=== PATIENT | female | born 1990 | race Caucasian/White ===

== ENCOUNTER 2016-09-05 16:57 | Emergency (ER) | payer BC ==
--- NOTE | 2016-09-05 18:03 | EDM.PDOC ---
ED HPI RENAL/ - General Chief Complaint: Genitourinary Problem Stated Complaint: UTI Time Seen by Provider: 09/05/16 17:40 Source of Information: Reports: Patient History Limitations: Reports: No limitations - History of Present Illness INITIAL COMMENTS - FREE TEXT/NARRATIVE: Patient is 25-year-old female who is 12 weeks presenting to the ED complaining of burning sensation and increased frequency with urination. Patient states symptoms started this morning and have progressively gotten worse throughout the course of the day. She does have a history of UTIs in the past and states symptoms are similar to previous episodes. Denies any abnormal vaginal discharge or bleeding, n/v, or fever/chills. 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 Other Cardiovascular History: pt has fluctuation of heart rate and rhythms from SR_ST_SVT. 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 Psychiatric History: Reports: Anxiety Other Psychiatric History: insomnia Social & Family History - Tobacco Use Smoking Status *Q: Never Smoker Second Hand Smoke Exposure: No - Caffeine Use Caffeine Use: Reports: None - Alcohol Use Days Per Week of Alcohol Use: 0 - Recreational Drug Use Recreational Drug Use: No ED ROS GENERAL - Review of Systems Review Of Systems: See Below Constitutional: Reports: no symptoms Respiratory: Reports: No Symptoms Cardiovascular: Reports: No symptoms GI/Abdominal: Reports: Abdominal pain (Intermittent suprapubic abdominal pain) : Reports: dysuria, frequency, urgency. Denies: discharge, flank pain Musculoskeletal: Denies: back pain ED EXAM, RENAL/ - Physical Exam Exam: See Below Exam Limited By: No limitations General Appearance: alert, WD/WN, no apparent distress Ears: hearing grossly normal Nose: normal inspection Throat/Mouth: Normal voice, No airway compromise Neck: supple Respiratory/Chest: no respiratory distress, no accessory muscle use Cardiovascular: normal peripheral pulses, regular rate, rhythm GI/Abdominal: normal bowel sounds, soft, non tender, no organomegaly, no distention Back Exam: normal inspection. No: CVA tenderness (L), CVA tenderness (R) Neurological: alert, oriented, CN II-XII intact, normal cognition Psychiatric: normal affect, normal mood Skin Exam: Warm, Dry, Intact, Normal color Course - Vital Signs Last Recorded V/S: Last Vital Signs Temp 97.4 F 09/05/16 17:05 Pulse 80 09/05/16 18:17 Resp 16 09/05/16 18:17 BP 94/75 09/05/16 18:17 Pulse Ox 100 09/05/16 18:17 - Orders/Labs/Meds Orders: Active Orders 24 hr Category Date Time Status CULTURE URINE [RM] Stat Lab 09/05/16 14:15 Received Labs: Laboratory Tests 09/05/16 Range/Units 17:05 Urine Color Yellow (Yellow) Urine Appearance Slt cloudy H (Clear) Urine pH 6.0 (5.0-8.0) Ur Specific [place] 1.025 (1.005-1.030) Urine Protein Negative (Negative) Urine Glucose (UA) Negative (Negative) Urine Ketones Negative (Negative) Urine Occult Blood Negative (Negative) Urine Nitrite Negative (Negative) Urine Bilirubin Negative (Negative) Urine Urobilinogen 0.2 (0.2-1.0) Ur Leukocyte Esterase Trace H (Negative) Urine RBC 0-5 (0-5) /hpf Urine WBC 5-10 H (0-5) /hpf Ur Epithelial Cells Not Reportable Ur Squamous Epith Cells 20-30 H (0-5) /hpf Urine Bacteria Few (FEW) /hpf Urine Mucus Few (FEW) /hpf Meds: Medications Discontinued Medications Generic Name Dose Route Start Last Admin Trade Name Rocio PRN Reason Stop Dose Admin Cephalexin 500 mg 09/05/16 18:04 09/05/16 18:14 Keflex PO 09/05/16 18:05 500 mg ONETIME ONE Administration - Re-Assessments/Exams Free Text/Narrative Re-Assessment/Exam: UA was obtained revealing negative nitrates, trace leukocyte Estrace, urine RBC 0-5, urine wbc's 5-10, squamous epithelial cells 20-30. Urine culture obtained. Due to patients history of UTI's, current symptoms, and history will discharge patient home with a prescription for Keflex 500 mg 4 times a day for 7 days. Keflex 500mg PO x 1 ordered. Will obtain heart tones prior to discharge. 09/05/16 17:59 09/05/16 18:07 heart tones 155. Departure - Departure Time of Disposition: 18:02 Disposition: Home, Self-Care 01 Condition: good Clinical Impression: UTI (urinary tract infection) during Prescriptions: Cephalexin [Keflex] 500 mg PO QID #28 capsule Instructions: and Urinary Tract Infection Referrals: Licha Foster NATUROPATHIC ONCOLOGY PROVIDER [Primary Care Provider] - Forms: ED Department Discharge Additional Instructions: As discussed will have you take Keflex 500 mg 4 times a day for 7 days. Urine culture has been obtained. If any changes to antibiotic therapy is required U. will be notified. Followup with primary care provider at conclusion of therapy to ensure resolution. Return back to the ED if you develope any new or worsening symptoms as discussed. - My Orders Last 24 Hours: My Active Orders 09/05/16 14:15 CULTURE URINE [RM] Stat - Assessment/Plan Last 24 Hours: My Active Orders 09/05/16 14:15 CULTURE URINE [RM] Stat
[2016-09-05] MEDS ORDERED: Cephalexin 500 MG Cap PO ONE (18:04)
[2016-09-05 18:19] VITALS: BP 94/75
== END 2016-09-05 18:21 | disposition home or self-care (01) ==
LOC: JD.ED 16:57
DX: O23.41 Unspecified infection of urinary tract in pregnancy, first trimester (principal); Z3A.12 12 weeks gestation of pregnancy
CPT/HCPCS: 81001; 87086; 99283; A9270

== ENCOUNTER 2016-12-30 13:46 | Observation (INO) | payer BC ==
[2016-12-30] MEDS ORDERED: Sodium Chloride 0.9% 10 ML Syringe FLUSH PRN (13:51)
[2016-12-30] MEDS ORDERED: Betamethasone Acetate/Betamethasone Sod Phosphate 30 MG/5 ML MDV IM ONE (13:51)
[2016-12-30] MEDS: Lactated Ringers 1,000 ML IV SCH ×4 (14:15→21:12)
[2016-12-30] MEDS ORDERED: Terbutaline 1 MG/ML SDV ONE (14:19)
[2016-12-30] MEDS: Terbutaline 1 MG/ML SDV SUBCUT SCH ×6 (14:26→19:01)
--- NOTE | 2016-12-30 16:47 | PCM.LDHP ---
L&D History of Present Illness - General Date of Service: 12/30/16 Admit Problem/Dx: Patient Status Order with Admit Dx/Problem 12/30/16 13:51 Patient Status [ADT] Routine 12/30/16 16:34 Patient Status [ADT] Routine Admission Diagnosis/Problem Admission Diagnosis/Problem complication before - History of Present Illness Introduction:: Patient is a 26-year-old, 1, para 0, white female with an NUNU of 2016, who was admitted for observation with complaints of contractions. Pelvic cramping began at 0700 this morning. She was seen by Licha Foster in the clinic where contractions were noted. FFN was negative. Cervical length by TV US was 2.2 cm and 1.3 cm with valsalva. Cervical length was 3.6 cm on las trans -abdominal USG on 12/08/2016. Course: Patient's LMP was06/07/2016, definite and not on control at time of conception. She was using clomid prior to . EPDS was 9 on 2016. Patient does have a history of anxiety. Laboratory Testing: Blood type is A positive and antibody negative. First trimester hemoglobin was 14.0 and platelets were 270,000. Rubella immune. VDRL/RPR was nonreactive. HIV and hepatitis B assays were negative. Chlamydia and gonorrhea were negative. Second trimester hemoglobin was 12.7 and platelets were 238,000. GBS collected and is pending will Rx Ampicillin pending report Timing/Duration: Reports: hour(s): Location, : Reports: Abdomen, Lower back Quality: Reports: Ache, Dull Severity: Mild Pain Score: 4 - Related Data Allergies/Adverse Reactions: Allergies Allergy/AdvReac Type Severity Reaction Status Date / Time No Known Allergies Allergy Verified 09/05/16 17:13 Home Medications: Home Meds Cephalexin [Keflex] 500 mg PO QID #28 capsule 09/05/16 [Rx] Doxylamine/Pyridoxine HCl [Diclegis Dr 10-10 mg Tablet] 2 tab PO BEDTIME [History] PNV95/Ferrous Fumarate/FA [ Vitamin Tablet] 1 tab PO DAILY 09/05/16 [ History] Past Medical History HEENT History: Reports: Impaired Vision Other HEENT History: wears contacts. Other Cardiovascular History: pt has fluctuation of heart rate and rhythms from SR_ST_SVT. 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 Psychiatric History: Reports: Anxiety Other Psychiatric History: insomnia Social & Family History - Family History Cardiac: Reports: CAD (father, paternal grandfather, and maternal grandmother), High Cholesterol (father) - Tobacco Use Smoking Status *Q: Never Smoker Second Hand Smoke Exposure: No - Caffeine Use Caffeine Use: Reports: None - Alcohol Use Days Per Week of Alcohol Use: 0 - Recreational Drug Use Recreational Drug Use: No H&P Review of Systems - Review of Systems: Review Of Systems: See Below General: Reports: No Symptoms HEENT: Reports: No Symptoms Pulmonary: Reports: No Symptoms Cardiovascular: Reports: No Symptoms Gastrointestinal: Reports: No Symptoms Genitourinary: Reports: No Symptoms Musculoskeletal: Reports: No Symptoms Skin: Reports: No Symptoms Psychiatric: Reports: No Symptoms Neurological: Reports: No Symptoms Hematologic/Lymphatic: Reports: No Symptoms Immunologic: Reports: No Symptoms L&D Exam - Exam Exam: See Below - Vital Signs Vital Signs: Pre- weight was 134 and current weight was 149.8 Weight: 135 lb - OB Specific Fundal Height In cm: 28 Contraction Frequency (min): 5-6 min Movement: Active Heart Tones: Present (147) Heart Tones per Min: 147 Heart Rate (FHR) Variability: Moderate (6-25 bmp) (adequate for gestational age) - Burns Score Burns Score Cervix Position: Posterior Burns Score Consistency: Firm Burns Score Effacement: 51-70% Burns Score Dilation: Closed (exam at 1530 and 1630 were unchanged) Burns Score 's Station: -3 Burns Score Total: 2 - Exam General: Alert, Oriented Neck: Supple, Trachea Midline Lungs: Clear to Auscultation, Normal Respiratory Effort Cardiovascular: Regular Rate, Regular Rhythm GI/Abdominal Exam: Other (Protuberant with preganancy at 28 cm fundal height) Extremities: Normal Inspection, No Pedal Edema Skin: Warm, Dry, Intact Psychiatric: Alert, Anxious - Patient Data Lab Results Last 24 hrs: Laboratory Results - last 24 hr 12/30/16 12/30/16 Range/Units 14:10 14:10 WBC 12.84 H (3.98-10.04) K/mm3 RBC 4.19 (3.98-5.22) M/mm3 Hgb 13.2 (11.2-15.7) gm/L Hct 39.0 (34.1-44.9) % MCV 93.1 (79.4-94.8) fl MCH 31.5 (25.6-32.2) pg MCHC 33.8 (32.2-35.5) g/dl RDW Std Deviation 42.5 (36.4-46.3) fL Plt Count 232 (182-369) K/mm3 MPV 9.7 (9.4-12.3) fl Neut % (Auto) 75.8 H (34.0-71.1) % Lymph % (Auto) 18.0 L (19.3-51.7) % [place] % (Auto) 5.6 (4.7-12.5) % Eos % (Auto) 0.2 L (0.7-5.8) Baso % (Auto) 0.2 (0.1-1.2) % Neut # (Auto) 9.74 H (1.56-6.13) K/mm3 Lymph # (Auto) 2.31 (1.18-3.74) K/mm3 [place] # (Auto) 0.72 H (0.24-0.36) K/mm3 Eos # (Auto) 0.02 L (0.04-0.36) K/mm3 Baso # (Auto) 0.02 (0.01-0.08) K/mm3 Blood Type A POSITIVE Gel Antibody Screen Negative Result Diagrams: 12/30/16 14:10 - Problem List (1) 28 weeks gestation of SNOMED Code(s): 79846610 ICD Code: Z3A.28 - 28 WEEKS GESTATION OF Status: Acute Current Visit: Yes (2) contractions SNOMED Code(s): 888138998 ICD Code: O47.9 - FALSE LABOR, UNSPECIFIED Status: Acute Current Visit: Yes Problem List Initiated/Reviewed/Updated: No Orders Last 24hrs: Active Orders 24 hr Category Date Time Status Patient Status [ADT] Routine ADT 12/30/16 16:34 Ordered Non Stress Test [RC] PER UNIT ROUTINE Care 12/30/16 13:51 Active Peripheral IV Care [RC] . DIRECTED Care 12/30/16 13:55 Active Vital Signs [RC] PER UNIT ROUTINE Care 12/30/16 13:51 Active Clear Liquid Diet [DIET] Diet 12/30/16 Breakfast Cancelled Regular Diet [DIET] Diet 12/30/16 Dinner Ordered Doxylamine/Pyridoxine HCl [Diclegis Dr 10-10 mg Tablet] Med 12/30/16 21:00 Ordered 2 tab PO BEDTIME Lactated Ringers [Ringers, Lactated] 1,000 ml Med 12/30/16 14:00 Active IV ASDIRECTED NIFEdipine [Procardia] Med 12/30/16 16:45 Ordered 10 mg PO Q6H Sodium Chloride 0.9% [Saline Flush] Med 12/30/16 13:51 Active 10 ml FLUSH ASDIRECTED PRN Terbutaline [Brethine] Med 12/30/16 14:30 Active 0.25 mg SUBCUT Q20M Peripheral IV Insertion Adult [OM.PC] Urgent Oth 12/30/16 13:51 Ordered Resuscitation Status Routine Resus Stat 12/30/16 13:51 Ordered Medication Orders Lactated Ringer's (Ringers, Lactated) 1,000 mls @ 125 mls/hr IV ASDIRECTED LEONARDA Last Admin: 12/30/16 14:15 Dose: 500 mls/hr Nifedipine (Procardia) 10 mg PO Q6H LEONARDA Non-Formulary Medication (Doxylamine/Pyridoxine Hcl [Diclegis Dr 10-10 Mg Tablet ]) 2 tab PO BEDTIME LEONARDA Sodium Chloride (Saline Flush) 10 ml FLUSH ASDIRECTED PRN PRN Reason: Keep Vein Open Terbutaline Sulfate (Brethine) 0.25 mg SUBCUT Q20M LEONAR[facility] Last Admin: 12/30/16 14:26 Dose: 0.25 mg Assessment/Plan Comment:: Assessment: 1. contractions 28+ weeks gestation Plan: 1. Observation status 2. IV hydration 3. repeat sonogram in am 4. terbutaline/procardia 5. 12 mg celestone and repeat in 24 hours 6. visteril 50 mg hs 7. continuous monitoring throughout night 8. Ampicillin pending GBS report
[2016-12-30] MEDS ORDERED: Ampicillin 2 GM Vial ONE (17:26)
[2016-12-30] MEDS ORDERED: Sodium Chloride 0.9% 100 ML ONE (17:27)
[2016-12-30] MEDS ORDERED: Ampicillin 2 GM in Sodium Chloride 0.9% 100 ML IV SCH (17:30)
[2016-12-30] MEDS: NIFEdipine 10 MG Cap PO SCH ×2 (17:41→22:52)
[2016-12-30] MEDS: Ampicillin 1 GM in Sodium Chloride 0.9% 100 ML IV SCH (19:01)
[2016-12-30] MEDS ORDERED: hydrOXYzine HCl 50 MG Tab PO SCH (21:00)
[2016-12-30] MEDS ORDERED: DOXYLAMINE PO SCH (21:00)
[2016-12-30] MEDS ORDERED: PYRIDOXINE HCL PO SCH (21:00)
[2016-12-30] MEDS ORDERED: Ampicillin 1 GM in Sodium Chloride 0.9% 100 ML IV SCH (21:30)
[2016-12-30] MEDS: Ampicillin 1 GM in Sodium Chloride 0.9% 50 ML IV SCH (21:31)
[2016-12-30] MEDS ORDERED: Terbutaline 1 MG/ML SDV SUBCUT PRN (22:48)
[2016-12-30] MEDS ORDERED: Acetaminophen 325 MG Tab PO ONE (22:48)
[2016-12-31] MEDS: Ampicillin 1 GM in Sodium Chloride 0.9% 50 ML IV SCH ×3 (01:31→11:12)
[2016-12-31] MEDS ORDERED: Terbutaline 1 MG/ML SDV SUBCUT ONE (03:01)
[2016-12-31] MEDS ORDERED: NIFEdipine 10 MG Cap ONE (03:17)
--- NOTE | 2016-12-31 03:25 | PCM.SN ---
- Free Text/Narrative Note: Patient continues with uterine irritability terbutaline 0.252 additional doses given and Procardia increase to 20 mg by mouth every 4 hours for 4 doses total and then revert back to 10 mg every 4H by mouth cervix is unchanged on pelvic exam at present time, posterior firm 50% closed and floating presenting part. Repeat ultrasound for cervical length has been ordered for this morning.
[2016-12-31] MEDS: NIFEdipine 10 MG Cap PO SCH ×6 (03:31→17:22)
[2016-12-31] MEDS: Lactated Ringers 1,000 ML IV SCH (04:45)
--- NOTE | 2016-12-31 09:51 | PCM.SN ---
- Free Text/Narrative Note: USG this AM improved cervical length from yesterday's USG, cephalic, ant placenta, JUNG 11.12, EFW 2#8 oz, contractions have subsided and irritability resolved as well. GBS negative discontinue the Ampicillin IV for now. Decrease Procardia to 10 mg q6h or q4h if irritability returns. Celestone 12 mg at 1430. Possibly home this PM. Do not work until at least Wednesday01/05/17.
--- NOTE | 2016-12-31 11:03 | US ---
Follow-up obstetrical ultrasound: Multiple real-time images were obtained transabdominally and transvaginally. Transvaginal images were obtained of the cervix. Comparison: Previous obstetrical ultrasound of the cervix dated 12/30/16. Dates: LMP: ? Current ultrasound: NUNU 03/26/17, gestational age 27 weeks 6 days Earliest ultrasound (08/07/16): NUNU 03/19/17, gestational age 28 weeks 6 days presentation: Cephalic Placenta: Anterior with no findings of placenta previa Amniotic fluid: JUNG 11.12 cm Cervix: On transvaginal imaging the cervix measures between 2.4 and 3.0 cm and appears closed. No change seen on measurement between Valsalva and non-Valsalva views as suggested on prior ultrasound. Measurements: BPD: 6.90 cm - 27 weeks 6 days Head circumference: 25.66 cm - 28 weeks 0 days Abdominal circumference: 23.57 cm - 28 weeks 0 days Femur length: 5.15 cm - 27 weeks 4 days Estimated weight: 1122 g (2 lbs. 8 oz.), estimated weight at the 33rd percentile for age by current ultrasound Heart rate: 142 bpm Growth curves: Various growth parameters are between the mean and -2 standard deviation lines. Growth is felt to be appropriate from prior exams. Impression: 1. Single intrauterine fetus currently cephalic in presentation. Dates as noted above. 2. Cervical length between 2.4 and 3.0 cm, cervix is closed. Cervix did not change measurements between non-Valsalva and Valsalva. 3. growth is appropriate from prior exam. JUNG is 11.12 cm Diagnostic code #2
[2016-12-31] MEDS ORDERED: Betamethasone Acetate/Betamethasone Sod Phosphate 30 MG/5 ML MDV IM ONE (14:29)
[2016-12-31 17:22] VITALS: BP 119/68
--- NOTE | 2016-12-31 17:27 | PCM.DCSUM1 ---
Discharge Summary - Hospital Course Free Text/Narrative:: Treated for labor with hydration, SQ Terbutaline, Procardia and contractions have subsided. No cervical change in 24 hours by exam , and improvement of cervical length with USG. RTC Wednesday or to L&D if problems before then. HPI Initial Comments: Treated for labor with hydration, SQ Terbutaline, Procardia and contractions have subsided. No cervical change in 24 hours by exam , and improvement of cervical length with USG. RTC Wednesday or to L&D if problems before then. Brief History: Treated for labor with hydration, SQ Terbutaline, Procardia and contractions have subsided. No cervical change in 24 hours by exam , and improvement of cervical length with USG. RTC Wednesday or to L&D if problems before then. - Discharge Data Discharge Date: 12/31/16 Discharge Disposition: Home, Self-Care 01 Condition: Good - Discharge Diagnosis/Problem(s) (1) 28 weeks gestation of SNOMED Code(s): 54734287 ICD Code: Z3A.28 - 28 WEEKS GESTATION OF Status: Acute Current Visit: Yes (2) contractions SNOMED Code(s): 434317046 ICD Code: O47.9 - FALSE LABOR, UNSPECIFIED Status: Acute Current Visit: Yes - Patient Summary/Data Complications: none Consults: none Hospital Course: Uneventful Pelvic rest until delivery Stop work until after delivery note given - Patient Instructions Diet: Regular Diet as Tolerated Driving: Do Not Drive (x48 hrs) Showering/Bathing: May Shower Notify Provider of: Fever, Increased Pain, Swelling and Redness, Drainage, Nausea and/or Vomiting - Discharge Plan Prescriptions/Med Rec: Doxylamine/Pyridoxine HCl [Sarah Mueller 10-10 mg Tablet] 1 - 2 each PO BID #90 tablet. NIFEdipine [Procardia] 10 mg PO Q4H #180 cap Home Medications: Home Meds Cephalexin [Keflex] 500 mg PO QID #28 capsule 09/05/16 [Rx] Doxylamine/Pyridoxine HCl [Sarah Mueller 10-10 mg Tablet] 2 tab PO BEDTIME [History] PNV95/Ferrous Fumarate/FA [ Vitamin Tablet] 1 tab PO DAILY 09/05/16 [ History] Doxylamine/Pyridoxine HCl [Sarah Mueller 10-10 mg Tablet] 1 - 2 each PO BID #90 tablet. 12/31/16 [Rx] NIFEdipine [Procardia] 10 mg PO Q4H #180 cap 12/31/16 [Rx] Referrals: Bethel Sanchez MD [Physician] - (Wednesday 1130am at [facility]. ) - Discharge Summary/Plan Comment DC Time >30 min.: No - Patient Data Vitals - Most Recent: Last Vital Signs Temp 98.2 F 12/30/16 20:55 Pulse 94 12/30/16 20:55 Resp 20 12/30/16 20:55 BP 119/68 12/31/16 17:22 Pulse Ox 95 12/30/16 20:55 Weight - Most Recent: 150 lb I&O - Last 24 hours: Intake & Output 12/31/16 12/31/16 12/31/16 06:59 14:59 22:59 Intake Total 120 Balance 120 Med Orders - Current: Current Medications Hydroxyzine HCl (Atarax) 50 mg PO BEDTIME [facility] Last Admin: 12/30/16 20:14 Dose: 50 mg Lactated Ringer's (Ringers, Lactated) 1,000 mls @ 125 mls/hr IV ASDIRECTED [facility] Last Admin: 12/31/16 04:45 Dose: 125 mls/hr Nifedipine (Procardia) 10 mg PO Q4H [facility] Last Admin: 12/31/16 17:22 Dose: 10 mg Doxylamine/Pyridoxine Hcl [ Sarah Mueller 10-10 Mg Tablet] 0 each PO BEDTIME [facility] Last Admin: 12/31/16 11:13 Dose: Not Given Sodium Chloride (Saline Flush) 10 ml FLUSH ASDIRECTED PRN PRN Reason: Keep Vein Open Terbutaline Sulfate (Brethine) 0.25 mg SUBCUT ONETIME PRN PRN Reason: labor Last Admin: 12/31/16 02:16 Dose: 0.25 mg Discontinued Medications Acetaminophen (Tylenol) 650 mg PO NOW ONE Stop: 12/30/16 22:49 Last Admin: 12/30/16 23:35 Dose: 650 mg Ampicillin Sodium (Ampicillin) Confirm Administered Dose 2 gm .ROUTE .STK-MED ONE Stop: 12/30/16 17:27 Last Admin: 12/30/16 19:02 Dose: Not Given Betamethasone Acet/Betameth SodPhos (Celestone Soluspan 6 Mg/Ml) 12 mg IM ONETIME ONE Stop: 12/30/16 13:52 Last Admin: 12/30/16 14:28 Dose: 12 mg Betamethasone Acet/Betameth SodPhos (Celestone Soluspan 6 Mg/Ml) 12 mg IM ONETIME ONE Stop: 12/31/16 14:30 Last Admin: 12/31/16 14:47 Dose: 12 mg Ampicillin Sodium 1 gm/ Sodium (Chloride) 100 mls @ 200 mls/hr IV Q15M [facility] Stop: 12/30/16 17:29 Last Admin: 12/30/16 19:01 Dose: Not Given Ampicillin Sodium 1 gm/ Sodium (Chloride) 100 mls @ 200 mls/hr IV Q4H [facility] Ampicillin Sodium 2 gm/ Sodium (Chloride) 100 mls @ 200 mls/hr IV NOW [facility] Last Admin: 12/30/16 17:41 Dose: 200 mls/hr Ampicillin Sodium 1 gm/ Sodium (Chloride) 50 mls @ 100 mls/hr IV Q4H [facility] Last Admin: 12/31/16 11:12 Dose: Not Given Sodium Chloride (Normal Saline) Confirm Administered Dose 100 mls @ as directed .ROUTE .STK-MED ONE Stop: 12/30/16 17:28 Last Admin: 12/30/16 19:02 Dose: Not Given Nifedipine (Procardia) 10 mg PO Q6H [facility] Last Admin: 12/30/16 22:52 Dose: 10 mg Nifedipine (Procardia) Confirm Administered Dose 10 mg .ROUTE .STK-MED ONE Stop: 12/31/16 03:18 Last Admin: 12/31/16 03:25 Dose: Not Given Nifedipine (Procardia) 20 mg PO Q4H [facility] Stop: 12/31/16 15:16 Last Admin: 12/31/16 07:52 Dose: 20 mg Nifedipine (Procardia) 10 mg PO Q4H [facility] Terbutaline Sulfate (Brethine) Confirm Administered Dose 1 mg .ROUTE .STK-MED ONE Stop: 12/30/16 14:20 Last Admin: 12/30/16 14:33 Dose: Not Given Terbutaline Sulfate (Brethine) 0.25 mg SUBCUT Q20M [facility] Last Admin: 12/30/16 19:01 Dose: Not Given Terbutaline Sulfate (Brethine) 0.25 mg SUBCUT ONETIME ONE Stop: 12/31/16 03:02 Last Admin: 12/31/16 03:08 Dose: 0.25 mg *Q Meaningful Use (DIS) - VTE *Q VTE Criteria *Q: - Stroke *Q Stroke Criteria *Q: - AMI *Q AMI Criteria *Q:
[2016-12-31] MEDS ORDERED: NIFEdipine 10 MG Cap PO SCH (19:15)
== END 2016-12-31 17:35 | disposition home or self-care (01) ==
LOC: JD.OBCHECK 13:46 → JD.OB 13:47 → JD.OBCHECK 17:04 → JD.MS 12-31 08:33
PROVIDERS: ADMIT Obstetrics & Gynecology; ATTEND Obstetrics & Gynecology
DX: O60.03 Preterm labor without delivery, third trimester (principal); Z3A.28 28 weeks gestation of pregnancy; Z87.440 Personal history of urinary (tract) infections; Z79.899 Other long term (current) drug therapy; O26.892 Other specified pregnancy related conditions, second trimester; R10.2 Pelvic and perineal pain
CPT/HCPCS: 36415; 59025; 76816; 76817; 81003; 82731; 85025; 86850; 86900; 86901; 87653; 96361; 96365; 96366; 96372; 96376; A9270; G0378; J0290; J0702; J3105; J7030; J7050; J7120

== ENCOUNTER 2017-01-01 15:10 | Observation (INO) | payer BC ==
--- NOTE | 2017-01-01 17:44 | US ---
Limited obstetrical ultrasound: Multiple real-time images were obtained transvaginally. Findings: Slight funneling of the internal cervical loss is identified. Cervical length is around 2.7 cm which diminishes to about 1.0 cm with Valsalva. This funneling appears slightly more prominent than on previous exam. There is some fluid being seen within the endocervical canal. Impression: 1. Mild funneling of the internal cervical os slightly more prominent than on prior study. 2. Decreased cervical length with Valsalva to 1.0 cm. 3. Small amount of fluid within the endocervical canal. Diagnostic code #3
--- NOTE | 2017-01-01 19:28 | PCM.LDHP ---
L&D History of Present Illness - General Date of Service: 01/01/17 Admit Problem/Dx: Patient Status Order with Admit Dx/Problem 01/01/17 18:56 Patient Status [ADT] Routine Admission Diagnosis/Problem Admission Diagnosis/Problem complication before Source of Information: Patient History Limitations: Reports: No Limitations - History of Present Illness Introduction:: 26-year-old 000 NUNU 03/19/17 at 29 weeks 0 days estimated gestational age had been in the hospital observation status Wednesday12/30/16 and dismissed on 12/31/16 because of threatened labor was given subcutaneous terbutaline Procardia by mouth Vistaril and contractions subsided the ultrasound obtained on 12/30/16 revealed cervix closed cervical length measures 2.2 cm in decreases to 1.3 cm with Valsalva cephalic presentation follow-up ultrasound on 12/31/16 showed cervix 2.4-3.0 cm and appears close no change on measurement between Valsalva and non-Valsalva use as suggested on prior ultrasound ultrasound obtained today reveals cervix 2.7 cm diminishes to 1.0 cm with Valsalva and funneling appears slightly more prominent than on previous exam in fluid seen in the endocervical canal patient had felt she was having contractions at home we have not been able to identify contractions by palpation or nonstress test on labor and delivery unit today. On ultrasound 12/08 the cervix was 3.6 cm in length. The nonstress test is reassuring for gestational age. Cervical exam revealed on 12/30/16 posterior firm 50-60% closed - 3 station cervical exam on 12/31/16 was unchanged and cervical exam today is unchanged. group B strep screen was returned as negative. Patient was dismissed from the hospital 12/31/16 taking Procardia 110 mg tablet every 4-6 hours (she's been taking it about every 5 hours). The fibronectin was negative on . I did talk with Dr.Ana Paty DUKE at [facility] in [place] concerning this patient and she agrees with the treatments thus far. fibronectin has been collected results are pending at present time. The MFM agreed with placing patient on observation status here and no need to transported present time unless her condition should change. Improves with: Reports: None Worsens with: Reports: None Associated Symptoms: Reports: N - Related Data Allergies/Adverse Reactions: Allergies Allergy/AdvReac Type Severity Reaction Status Date / Time No Known Allergies Allergy Verified 09/05/16 17:13 Home Medications: Home Meds Cephalexin [Keflex] 500 mg PO QID #28 capsule 09/05/16 [Rx] Doxylamine/Pyridoxine HCl [Diclegis Dr 10-10 mg Tablet] 2 tab PO BEDTIME [History] PNV95/Ferrous Fumarate/FA [ Vitamin Tablet] 1 tab PO DAILY 09/05/16 [ History] Doxylamine/Pyridoxine HCl [Diclegis Dr 10-10 mg Tablet] 1 - 2 each PO BID #90 tablet. 12/31/16 [Rx] NIFEdipine [Procardia] 10 mg PO Q4H #180 cap 12/31/16 [Rx] Past Medical History HEENT History: Reports: Impaired Vision Other HEENT History: wears contacts. Cardiovascular History: Reports: Other (See Below) Other Cardiovascular History: pt has fluctuation of heart rate and rhythms from SR_ST_SVT. States had previous symptoms checked "nothing ever became of it.". Pt has had no reoccurances or complications. 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 Psychiatric History: Reports: Anxiety Other Psychiatric History: insomnia - Infectious Disease History Infectious Disease History: Reports: Other (See Below) Other Infectious Disease History: C-diff Cleared- had a long time ago Social & Family History - Family History Family Medical History: Noncontributory Cardiac: Reports: CAD, High Cholesterol - Tobacco Use Smoking Status *Q: Never Smoker Second Hand Smoke Exposure: No - Caffeine Use Caffeine Use: Reports: None - Alcohol Use Days Per Week of Alcohol Use: 0 - Recreational Drug Use Recreational Drug Use: No H&P Review of Systems - Review of Systems: Review Of Systems: See Below General: Reports: No Symptoms HEENT: Reports: No Symptoms Pulmonary: Reports: No Symptoms Cardiovascular: Reports: No Symptoms Gastrointestinal: Reports: No Symptoms Genitourinary: Reports: No Symptoms Musculoskeletal: Reports: No Symptoms Skin: Reports: No Symptoms Psychiatric: Reports: No Symptoms Neurological: Reports: No Symptoms Hematologic/Lymphatic: Reports: No Symptoms Immunologic: Reports: No Symptoms L&D Exam - Exam Exam: See Below - Vital Signs Weight: 150 lb - OB Specific Fundal Height In cm: 29 Movement: Active Heart Tones: Present Heart Tones per Min: 140 Heart Rate (FHR) Variability: Moderate (6-25 bmp) Presentation: Vertex - Burns Score Burns Score Cervix Position: Posterior Burns Score Consistency: Soft Burns Score Effacement: 51-70% Burns Score Dilation: Closed Burns Score 's Station: -3 Burns Score Total: 4 - Exam General: Alert, Oriented HEENT: Conjunctiva Clear, Mucosa Moist & [place], PERRLA Neck: Supple, Trachea Midline Lungs: Clear to Auscultation, Normal Respiratory Effort Cardiovascular: Regular Rate, Regular Rhythm GI/Abdominal Exam: Normal Bowel Sounds, Soft, Non-Tender, No Organomegaly, No Distention, No Abnormal Bruit, No Mass, Pelvis Stable Genitourinary: Normal external exam, Normal bimanual exam, Normal speculum exam Extremities: Normal Inspection, Normal Range of Motion, Non-Tender, No Pedal Edema, Normal Capillary Refill Skin: Warm, Dry, Intact Neurological: Cranial Nerves Intact, Reflexes Equal Bilateral Psychiatric: Alert, Normal Affect, Normal Mood - Patient Data Lab Results Last 24 hrs: Laboratory Results - last 24 hr 01/01/17 Range/Units 16:21 Urine Color Yellow (Yellow) Urine Appearance Cloudy H (Clear) Urine pH 7.0 (5.0-8.0) Ur Specific [place] 1.020 (1.005-1.030) Urine Protein Negative (Negative) Urine Glucose (UA) Negative (Negative) Urine Ketones Negative (Negative) Urine Occult Blood Negative (Negative) Urine Nitrite Negative (Negative) Urine Bilirubin Negative (Negative) Urine Urobilinogen 0.2 (0.2-1.0) Ur Leukocyte Esterase Negative (Negative) Urine RBC 0-5 (0-5) /hpf Urine WBC 0-5 (0-5) /hpf Ur Epithelial Cells 5-10 H (0-5) /hpf Amorphous Sediment Many H (NOT SEEN) /hpf Urine Bacteria Not seen (FEW) /hpf Urine Mucus Not seen (FEW) /hpf - Problem List (1) Threatened labor SNOMED Code(s): 630409004 ICD Code: O47.00 - FALSE LABOR BEFORE 37 COMPLETED WEEKS OF GEST, UNSP TRI Status: Acute Current Visit: No (2) 29 weeks gestation of SNOMED Code(s): 69354666 ICD Code: Z3A.29 - 29 WEEKS GESTATION OF Status: Acute Current Visit: No Problem List Initiated/Reviewed/Updated: No Orders Last 24hrs: Active Orders 24 hr Category Date Time Status Patient Status [ADT] Routine ADT 01/01/17 18:56 Active Antiembolic Devices [RC] PER UNIT ROUTINE Care 01/01/17 19:00 Active Bedrest Bathroom Privileges [RC] ASDIRECTED Care 01/01/17 19:01 Active Non Stress Test [RC] PER UNIT ROUTINE Care 01/01/17 16:15 Inactive Vital Signs [RC] PER UNIT ROUTINE Care 01/01/17 16:15 Active Vital Signs [RC] Q8H Care 01/01/17 18:59 Active Regular Diet [DIET] Diet 01/01/17 Dinner Active CULTURE URINE [RM] Routine Lab 01/01/17 16:21 Received FIBRONECTIN Stat Lab 01/01/17 18:20 Received Lactated Ringers [Ringers, Lactated] 500 ml Med 01/01/17 19:10 Ordered IV .BOLUS Morphine Med 01/01/17 21:00 Once 10 mg IM ONETIME ONE NIFEdipine [Procardia] Med 01/01/17 19:00 Ordered 10 mg PO Q6H hydrOXYzine HCl [Vistaril] Med 01/01/17 21:00 Once 50 mg IM ONETIME ONE EFM External w TOCO [Electronic Heart Tones Ext w Oth 01/01/17 18:59 Ordered TOCO] [WOMSER] CONTINUOUS SCD [Sequential Compression Device] [OM.PC] Routine Oth 01/01/17 19:00 Ordered Resuscitation Status Routine Resus Stat 01/01/17 16:15 Ordered Medication Orders Hydroxyzine HCl (Vistaril) 50 mg IM ONETIME ONE Stop: 01/01/17 21:01 Lactated Ringer's (Ringers, Lactated) 500 mls @ 500 mls/hr IV .BOLUS ONE Stop: 08/11/17 20:09 Morphine Sulfate (Morphine) 10 mg IM ONETIME ONE Stop: 01/01/17 21:01 Nifedipine (Procardia) 10 mg PO Q6H LEONARDA Stop: 01/03/17 13:01 Assessment/Plan Comment:: Observation status IV hydration and continue Procardia and IM morphine/Vistaril.
[2017-01-01] MEDS: NIFEdipine 10 MG Cap PO SCH (19:45)
[2017-01-01] MEDS: Lactated Ringers 500 ML IV ONE ×2 (20:25→23:30)
[2017-01-01] MEDS ORDERED: Morphine 10 MG/ML Syringe IM ONE (21:00)
[2017-01-01] MEDS ORDERED: hydrOXYzine HCl 25 MG/ML SDV IM ONE (22:06)
[2017-01-01] MEDS: hydrOXYzine HCl 25 MG/ML SDV IM ONE (22:38)
[2017-01-02] MEDS: NIFEdipine 10 MG Cap PO SCH ×2 (01:26→07:20)
[2017-01-02] MEDS ORDERED: Lactated Ringers 1,000 ML IV SCH (07:15)
--- NOTE | 2017-01-02 09:47 | US ---
Limited obstetrical ultrasound: Multiple real-time images were obtained transvaginally. Comparison: Previous exam performed one day earlier (01/01/17) Minimal funneling again noted within the internal cervical os. Shortest cervical length measured was 0.6 cm. This compares to previous study at 1.0 cm. Small amount of fluid is again seen within the endocervical canal. Impression: 1. Minimal funneling of the internal cervical os which is stable. 2. Shortest cervical length measured was 0.6 cm. 3. Small amount of fluid remains within the endocervical canal. Diagnostic code #5
[2017-01-02] MEDS ORDERED: Diphtheria,Pertussis(Acell),Tetanus Vaccine 0.5 ML SDV IM ONE (10:08)
[2017-01-02 10:17] VITALS: BP 110/70
[2017-01-02] MEDS: hydrOXYzine HCl 25 MG/ML SDV IM ONE (10:18)
--- NOTE | 2017-01-02 10:48 | PCM.DCSUM1 ---
Discharge Summary - Hospital Course Free Text/Narrative:: [facility] LIVE Admission H&P Patient Name: MARIAH JAMISON Date of : 89 Patient Status: Observation Attending Provider: Bethel Sanchez Date: 01/01/17 19:16 Initialization Date: 01/01/17 19:16 Addendum entered and electronically signed by Bethel Sanchez MD 01/01/17 19 :50: fibronectin from today returned as positive with patient has had several vaginal exams in the past 48 hours. I talked with [facility] and she agreed this could be from the exams and continue with present plan. Original Note: L&D History of Present Illness - General Date of Service: 01/01/17 Admit Problem/Dx: Patient Status Order with Admit Dx/Problem 01/01/17 18:56 Patient Status [ADT] Routine Admission Diagnosis/Problem Admission Diagnosis/Problem complication before Source of Information: Patient History Limitations: Reports: No Limitations - History of Present Illness Introduction:: 26-year-old 000 NUNU 03/19/17 at 29 weeks 0 days estimated gestational age had been in the hospital observation status Wednesday12/30/16 and dismissed on 12/31/16 because of threatened labor was given subcutaneous terbutaline Procardia by mouth Vistaril and contractions subsided the ultrasound obtained on 12/30/16 revealed cervix closed cervical length measures 2.2 cm in decreases to 1.3 cm with Valsalva cephalic presentation follow-up ultrasound on 12/31/16 showed cervix 2.4-3.0 cm and appears close no change on measurement between Valsalva and non-Valsalva use as suggested on prior ultrasound ultrasound obtained today reveals cervix 2.7 cm diminishes to 1.0 cm with Valsalva and funneling appears slightly more prominent than on previous exam in fluid seen in the endocervical canal patient had felt she was having contractions at home we have not been able to identify contractions by palpation or nonstress test on labor and delivery unit today. On ultrasound 12/08 the cervix was 3.6 cm in length. The nonstress test is reassuring for gestational age. Cervical exam revealed on 12/30/16 posterior firm 50-60% closed - 3 station cervical exam on 12/31/16 was unchanged and cervical exam today is unchanged. group B strep screen was returned as negative. Patient was dismissed from the hospital 12/31/16 taking Procardia 110 mg tablet every 4-6 hours (she's been taking it about every 5 hours). The fibronectin was negative on . I did talk with Dr.Ana Paty JONES MFM at [facility] in [place] concerning this patient and she agrees with the treatments thus far. fibronectin has been collected results are pending at present time. The MFM agreed with placing patient on observation status here and no need to transported present time unless her condition should change. Improves with: Reports: None Worsens with: Reports: None Associated Symptoms: Reports: N - Related Data Allergies/Adverse Reactions: Allergies Allergy/AdvReac Type Severity Reaction Status Date / Time No Known Allergies Allergy Verified 09/05/16 17:13 Home Medications: Home Meds Cephalexin [Keflex] 500 mg PO QID #28 capsule 09/05/16 [Rx] Doxylamine/Pyridoxine HCl [Diclegis Dr 10-10 mg Tablet] 2 tab PO BEDTIME [History] PNV95/Ferrous Fumarate/FA [ Vitamin Tablet] 1 tab PO DAILY 09/05/16 [ History] Doxylamine/Pyridoxine HCl [Diclegis Dr 10-10 mg Tablet] 1 - 2 each PO BID #90 tablet. 12/31/16 [Rx] NIFEdipine [Procardia] 10 mg PO Q4H #180 cap 12/31/16 [Rx] Past Medical History HEENT History: Reports: Impaired Vision Other HEENT History: wears contacts. Cardiovascular History: Reports: Other (See Below) Other Cardiovascular History: pt has fluctuation of heart rate and rhythms from SR_ST_SVT. States had previous symptoms checked "nothing ever became of it.". Pt has had no reoccurances or complications. Gastrointestinal History: Reports: Irritable Bowel Syndrome Genitourinary History: Reports: UTI, Recurrent, Other (See Below) Other Genitourinary History: Pt has not had a UTI in "quite some time." CHECK SERVICES CLERK History: Reports: , Other (See Below) Other OB/BYN History: states had had infertility, was started on meds to induce periods and Clomid for ovulation. Psychiatric History: Reports: Anxiety Other Psychiatric History: insomnia - Infectious Disease History Infectious Disease History: Reports: Other (See Below) Other Infectious Disease History: C-diff Cleared- had a long time ago Social & Family History - Family History Family Medical History: Noncontributory Cardiac: Reports: CAD, High Cholesterol - Tobacco Use Smoking Status *Q: Never Smoker Second Hand Smoke Exposure: No - Caffeine Use Caffeine Use: Reports: None - Alcohol Use Days Per Week of Alcohol Use: 0 - Recreational Drug Use Recreational Drug Use: No H&P Review of Systems - Review of Systems: Review Of Systems: See Below General: Reports: No Symptoms HEENT: Reports: No Symptoms Pulmonary: Reports: No Symptoms Cardiovascular: Reports: No Symptoms Gastrointestinal: Reports: No Symptoms Genitourinary: Reports: No Symptoms Musculoskeletal: Reports: No Symptoms Skin: Reports: No Symptoms Psychiatric: Reports: No Symptoms Neurological: Reports: No Symptoms Hematologic/Lymphatic: Reports: No Symptoms Immunologic: Reports: No Symptoms L&D Exam - Exam Exam: See Below - Vital Signs Weight: 150 lb - OB Specific Fundal Height In cm: 29 Movement: Active Heart Tones: Present Heart Tones per Min: 140 Heart Rate (FHR) Variability: Moderate (6-25 bmp) Presentation: Vertex - Burns Score Burns Score Cervix Position: Posterior Burns Score Consistency: Soft Burns Score Effacement: 51-70% Burns Score Dilation: Closed Burns Score 's Station: -3 Burns Score Total: 4 - Exam General: Alert, Oriented HEENT: Conjunctiva Clear, Mucosa Moist & [place], PERRLA Neck: Supple, Trachea Midline Lungs: Clear to Auscultation, Normal Respiratory Effort Cardiovascular: Regular Rate, Regular Rhythm GI/Abdominal Exam: Normal Bowel Sounds, Soft, Non-Tender, No Organomegaly, No Distention, No Abnormal Bruit, No Mass, Pelvis Stable Genitourinary: Normal external exam, Normal bimanual exam, Normal speculum exam Extremities: Normal Inspection, Normal Range of Motion, Non-Tender, No Pedal Edema, Normal Capillary Refill Skin: Warm, Dry, Intact Neurological: Cranial Nerves Intact, Reflexes Equal Bilateral Psychiatric: Alert, Normal Affect, Normal Mood - Patient Data Lab Results Last 24 hrs: Laboratory Results - last 24 hr 01/01/17 Range/Units 16:21 Urine Color Yellow (Yellow) Urine Appearance Cloudy H (Clear) Urine pH 7.0 (5.0-8.0) Ur Specific [place] 1.020 (1.005-1.030) Urine Protein Negative (Negative) Urine Glucose (UA) Negative (Negative) Urine Ketones Negative (Negative) Urine Occult Blood Negative (Negative) Urine Nitrite Negative (Negative) Urine Bilirubin Negative (Negative) Urine Urobilinogen 0.2 (0.2-1.0) Ur Leukocyte Esterase Negative (Negative) Urine RBC 0-5 (0-5) /hpf Urine WBC 0-5 (0-5) /hpf Ur Epithelial Cells 5-10 H (0-5) /hpf Amorphous Sediment Many H (NOT SEEN) /hpf Urine Bacteria Not seen (FEW) /hpf Urine Mucus Not seen (FEW) /hpf - Problem List (1) Threatened labor SNOMED Code(s): 895894188 ICD Code: O47.00 - FALSE LABOR BEFORE 37 COMPLETED WEEKS OF GEST, UNSP TRI Status: Acute Current Visit: No (2) 29 weeks gestation of SNOMED Code(s): 23268305 ICD Code: Z3A.29 - 29 WEEKS GESTATION OF Status: Acute Current Visit: No Problem List Initiated/Reviewed/Updated: No Orders Last 24hrs: Active Orders 24 hr Category Date Time Status Patient Status [ADT] Routine ADT 01/01/17 18:56 Active Antiembolic Devices [RC] PER UNIT ROUTINE Care 01/01/17 19:00 Active Bedrest Bathroom Privileges [RC] ASDIRECTED Care 01/01/17 19:01 Active Non Stress Test [RC] PER UNIT ROUTINE Care 01/01/17 16:15 Inactive Vital Signs [RC] PER UNIT ROUTINE Care 01/01/17 16:15 Active Vital Signs [RC] Q8H Care 01/01/17 18:59 Active Regular Diet [DIET] Diet 01/01/17 Dinner Active CULTURE URINE [RM] Routine Lab 01/01/17 16:21 Received FIBRONECTIN Stat Lab 01/01/17 18:20 Received Lactated Ringers [Ringers, Lactated] 500 ml Med 01/01/17 19:10 Ordered IV .BOLUS Morphine Med 01/01/17 21:00 Once 10 mg IM ONETIME ONE NIFEdipine [Procardia] Med 01/01/17 19:00 Ordered 10 mg PO Q6H hydrOXYzine HCl [Vistaril] Med 01/01/17 21:00 Once 50 mg IM ONETIME ONE EFM External w TOCO [Electronic Heart Tones Ext w Oth 01/01/17 18:59 Ordered TOCO] [WOMSER] CONTINUOUS SCD [Sequential Compression Device] [OM.PC] Routine Oth 01/01/17 19:00 Ordered Resuscitation Status Routine Resus Stat 01/01/17 16:15 Ordered Medication Orders Hydroxyzine HCl (Vistaril) 50 mg IM ONETIME ONE Stop: 01/01/17 21:01 Lactated Ringer's (Ringers, Lactated) 500 mls @ 500 mls/hr IV .BOLUS ONE Stop: 01/01/17 20:09 Morphine Sulfate (Morphine) 10 mg IM ONETIME ONE Stop: 01/01/17 21:01 Nifedipine (Procardia) 10 mg PO Q6H LEONARDA Stop: 01/03/17 13:01 Assessment/Plan Comment:: Observation status IV hydration and continue Procardia and IM morphine/Vistaril. Ultrasound morning of 01/02/17 0800 hrs. revealed minimal funneling of internal cervical os which is stable, shortest cervical length measured 0.6 cm small amount of fluid remains within the endocervical canal. Cervical exam check of patient at 1040 revealed no change in cervix clinically cervical os is closed 60 % posterior floating presenting part cephalic by ultrasound previously Patient will be dismissed to return if any bleeding gush of fluid leaking fluid contractions or concerns patient has appointment Wednesday in the clinic keep follow-up appointment unless she returns to labor and delivery for evaluation She will continue Procardia 10 mg by mouth every 4 hours HPI Initial Comments: [facility] LIVE Admission H&P Patient Name: MARIAH JAMISON Date of : 89 Patient Status: Observation Attending Provider: Bethel Sanchez Date: 01/01/17 19:16 Initialization Date: 01/01/17 19:16 Addendum entered and electronically signed by Bethel Sanchez MD 01/01/17 19 :50: fibronectin from today returned as positive with patient has had several vaginal exams in the past 48 hours. I talked with MFM and she agreed this could be from the exams and continue with present plan. Original Note: L&D History of Present Illness - General Date of Service: 01/01/17 Admit Problem/Dx: Patient Status Order with Admit Dx/Problem 01/01/17 18:56 Patient Status [ADT] Routine Admission Diagnosis/Problem Admission Diagnosis/Problem complication before Source of Information: Patient History Limitations: Reports: No Limitations - History of Present Illness Introduction:: 26-year-old 000 NUNU 03/19/17 at 29 weeks 0 days estimated gestational age had been in the hospital observation status Wednesday12/30/16 and dismissed on 12/31/16 because of threatened labor was given subcutaneous terbutaline Procardia by mouth Vistaril and contractions subsided the ultrasound obtained on 12/30/16 revealed cervix closed cervical length measures 2.2 cm in decreases to 1.3 cm with Valsalva cephalic presentation follow-up ultrasound on 12/31/16 showed cervix 2.4-3.0 cm and appears close no change on measurement between Valsalva and non-Valsalva use as suggested on prior ultrasound ultrasound obtained today reveals cervix 2.7 cm diminishes to 1.0 cm with Valsalva and funneling appears slightly more prominent than on previous exam in fluid seen in the endocervical canal patient had felt she was having contractions at home we have not been able to identify contractions by palpation or nonstress test on labor and delivery unit today. On ultrasound 12/08 the cervix was 3.6 cm in length. The nonstress test is reassuring for gestational age. Cervical exam revealed on 12/30/16 posterior firm 50-60% closed - 3 station cervical exam on 12/31/16 was unchanged and cervical exam today is unchanged. group B strep screen was returned as negative. Patient was dismissed from the hospital 12/31/16 taking Procardia 110 mg tablet every 4-6 hours (she's been taking it about every 5 hours). The fibronectin was negative on . I did talk with Dr.Ana Paty DUKE at [facility] in [place] concerning this patient and she agrees with the treatments thus far. fibronectin has been collected results are pending at present time. The MFM agreed with placing patient on observation status here and no need to transported present time unless her condition should change. Improves with: Reports: None Worsens with: Reports: None Associated Symptoms: Reports: N - Related Data Allergies/Adverse Reactions: Allergies Allergy/AdvReac Type Severity Reaction Status Date / Time No Known Allergies Allergy Verified 09/05/16 17:13 Home Medications: Home Meds Cephalexin [Keflex] 500 mg PO QID #28 capsule 09/05/16 [Rx] Doxylamine/Pyridoxine HCl [Diclegis Dr 10-10 mg Tablet] 2 tab PO BEDTIME [History] PNV95/Ferrous Fumarate/FA [ Vitamin Tablet] 1 tab PO DAILY 09/05/16 [ History] Doxylamine/Pyridoxine HCl [Diclegis Dr 10-10 mg Tablet] 1 - 2 each PO BID #90 tablet. 12/31/16 [Rx] NIFEdipine [Procardia] 10 mg PO Q4H #180 cap 12/31/16 [Rx] Past Medical History HEENT History: Reports: Impaired Vision Other HEENT History: wears contacts. Cardiovascular History: Reports: Other (See Below) Other Cardiovascular History: pt has fluctuation of heart rate and rhythms from SR_ST_SVT. States had previous symptoms checked "nothing ever became of it.". Pt has had no reoccurances or complications. Gastrointestinal History: Reports: Irritable Bowel Syndrome Genitourinary History: Reports: UTI, Recurrent, Other (See Below) Other Genitourinary History: Pt has not had a UTI in "quite some time." CHECK SERVICES CLERK History: Reports: , Other (See Below) Other OB/BYN History: states had had infertility, was started on meds to induce periods and Clomid for ovulation. Psychiatric History: Reports: Anxiety Other Psychiatric History: insomnia - Infectious Disease History Infectious Disease History: Reports: Other (See Below) Other Infectious Disease History: C-diff Cleared- had a long time ago Social & Family History - Family History Family Medical History: Noncontributory Cardiac: Reports: CAD, High Cholesterol - Tobacco Use Smoking Status *Q: Never Smoker Second Hand Smoke Exposure: No - Caffeine Use Caffeine Use: Reports: None - Alcohol Use Days Per Week of Alcohol Use: 0 - Recreational Drug Use Recreational Drug Use: No H&P Review of Systems - Review of Systems: Review Of Systems: See Below General: Reports: No Symptoms HEENT: Reports: No Symptoms Pulmonary: Reports: No Symptoms Cardiovascular: Reports: No Symptoms Gastrointestinal: Reports: No Symptoms Genitourinary: Reports: No Symptoms Musculoskeletal: Reports: No Symptoms Skin: Reports: No Symptoms Psychiatric: Reports: No Symptoms Neurological: Reports: No Symptoms Hematologic/Lymphatic: Reports: No Symptoms Immunologic: Reports: No Symptoms L&D Exam - Exam Exam: See Below - Vital Signs Weight: 150 lb - OB Specific Fundal Height In cm: 29 Movement: Active Heart Tones: Present Heart Tones per Min: 140 Heart Rate (FHR) Variability: Moderate (6-25 bmp) Presentation: Vertex - Burns Score Burns Score Cervix Position: Posterior Burns Score Consistency: Soft Burns Score Effacement: 51-70% Burns Score Dilation: Closed Burns Score 's Station: -3 Burns Score Total: 4 - Exam General: Alert, Oriented HEENT: Conjunctiva Clear, Mucosa Moist & [place], PERRLA Neck: Supple, Trachea Midline Lungs: Clear to Auscultation, Normal Respiratory Effort Cardiovascular: Regular Rate, Regular Rhythm GI/Abdominal Exam: Normal Bowel Sounds, Soft, Non-Tender, No Organomegaly, No Distention, No Abnormal Bruit, No Mass, Pelvis Stable Genitourinary: Normal external exam, Normal bimanual exam, Normal speculum exam Extremities: Normal Inspection, Normal Range of Motion, Non-Tender, No Pedal Edema, Normal Capillary Refill Skin: Warm, Dry, Intact Neurological: Cranial Nerves Intact, Reflexes Equal Bilateral Psychiatric: Alert, Normal Affect, Normal Mood - Patient Data Lab Results Last 24 hrs: Laboratory Results - last 24 hr 01/01/17 Range/Units 16:21 Urine Color Yellow (Yellow) Urine Appearance Cloudy H (Clear) Urine pH 7.0 (5.0-8.0) Ur Specific [place] 1.020 (1.005-1.030) Urine Protein Negative (Negative) Urine Glucose (UA) Negative (Negative) Urine Ketones Negative (Negative) Urine Occult Blood Negative (Negative) Urine Nitrite Negative (Negative) Urine Bilirubin Negative (Negative) Urine Urobilinogen 0.2 (0.2-1.0) Ur Leukocyte Esterase Negative (Negative) Urine RBC 0-5 (0-5) /hpf Urine WBC 0-5 (0-5) /hpf Ur Epithelial Cells 5-10 H (0-5) /hpf Amorphous Sediment Many H (NOT SEEN) /hpf Urine Bacteria Not seen (FEW) /hpf Urine Mucus Not seen (FEW) /hpf - Problem List (1) Threatened labor SNOMED Code(s): 218476672 ICD Code: O47.00 - FALSE LABOR BEFORE 37 COMPLETED WEEKS OF GEST, UNSP TRI Status: Acute Current Visit: No (2) 29 weeks gestation of SNOMED Code(s): 14921173 ICD Code: Z3A.29 - 29 WEEKS GESTATION OF Status: Acute Current Visit: No Problem List Initiated/Reviewed/Updated: No Orders Last 24hrs: Active Orders 24 hr Category Date Time Status Patient Status [ADT] Routine ADT 01/01/17 18:56 Active Antiembolic Devices [RC] PER UNIT ROUTINE Care 01/01/17 19:00 Active Bedrest Bathroom Privileges [RC] ASDIRECTED Care 01/01/17 19:01 Active Non Stress Test [RC] PER UNIT ROUTINE Care 01/01/17 16:15 Inactive Vital Signs [RC] PER UNIT ROUTINE Care 01/01/17 16:15 Active Vital Signs [RC] Q8H Care 01/01/17 18:59 Active Regular Diet [DIET] Diet 01/01/17 Dinner Active CULTURE URINE [RM] Routine Lab 01/01/17 16:21 Received FIBRONECTIN Stat Lab 01/01/17 18:20 Received Lactated Ringers [Ringers, Lactated] 500 ml Med 01/01/17 19:10 Ordered IV .BOLUS Morphine Med 01/01/17 21:00 Once 10 mg IM ONETIME ONE NIFEdipine [Procardia] Med 01/01/17 19:00 Ordered 10 mg PO Q6H hydrOXYzine HCl [Vistaril] Med 01/01/17 21:00 Once 50 mg IM ONETIME ONE EFM External w TOCO [Electronic Heart Tones Ext w Oth 01/01/17 18:59 Ordered TOCO] [WOMSER] CONTINUOUS SCD [Sequential Compression Device] [OM.PC] Routine Oth 01/01/17 19:00 Ordered Resuscitation Status Routine Resus Stat 01/01/17 16:15 Ordered Medication Orders Hydroxyzine HCl (Vistaril) 50 mg IM ONETIME ONE Stop: 01/01/17 21:01 Lactated Ringer's (Ringers, Lactated) 500 mls @ 500 mls/hr IV .BOLUS ONE Stop: 01/01/17 20:09 Morphine Sulfate (Morphine) 10 mg IM ONETIME ONE Stop: 01/01/17 21:01 Nifedipine (Procardia) 10 mg PO Q6H LEONARDA Stop: 01/03/17 13:01 Assessment/Plan Comment:: Observation status IV hydration and continue Procardia and IM morphine/Vistaril. Ultrasound morning of 01/02/17 0800 hrs. revealed minimal funneling of internal cervical os which is stable, shortest cervical length measured 0.6 cm small amount of fluid remains within the endocervical canal. Cervical exam check of patient at 1040 revealed no change in cervix clinically cervical os is closed 60 % posterior floating presenting part cephalic by ultrasound previously Patient will be dismissed to return if any bleeding gush of fluid leaking fluid contractions or concerns patient has appointment Wednesday in the clinic keep follow-up appointment unless she returns to labor and delivery for evaluation She will continue Procardia 10 mg by mouth every 4 hours Brief History: [facility] LIVE . Admission H&P . [facility]: [id number]. Date of : Patient Status: Observation. Attending Provider: Bethel Sanchez Number: [id number]. Date: 01/01/17 19:16Initialization Date: 01/01/17 19:16. Addendum entered and electronically signed by Bethel Sanchez MD 01/01/17 19:50: fibronectin from today returned as positive with patient has had several vaginal exams in the past 48 hours. I talked with [facility] and she agreed this could be from the exams and continue with present plan. Original Note: L& D History of Present Illness. - General. Date of Service: 01/01/17. Admit Problem/Dx: Patient Status Order with Admit Dx/Problem. 01/01/17 18:56. Patient Status [ADT] Routine. Admission Diagnosis/Problem. Admission Diagnosis /Problem complication before . Source of Information: Patient. History Limitations: Reports: No Limitations. - History of Present Illness. Introduction:: 26-year-old 000 NUNU 03/19/17 at 29 weeks 0 days estimated gestational age had been in the hospital observation status Wednesday12/30/16 and dismissed on 12/31/16 because of threatened labor was given subcutaneous terbutaline Procardia by mouth Vistaril and contractions subsided the ultrasound obtained on 12/30/16 revealed cervix closed cervical length measures 2.2 cm in decreases to 1.3 cm with Valsalva cephalic presentation follow-up ultrasound on 12/31/16 showed cervix 2.4-3.0 cm and appears close no change on measurement between Valsalva and non-Valsalva use as suggested on prior ultrasound ultrasound obtained today reveals cervix 2.7 cm diminishes to 1.0 cm with Valsalva and funneling appears slightly more prominent than on previous exam in fluid seen in the endocervical canal patient had felt she was having contractions at home we have not been able to identify contractions by palpation or nonstress test on labor and delivery unit today. On ultrasound 12/08/16 the cervix was 3.6 cm in length. The nonstress test is reassuring for gestational age. Cervical exam revealed on 12/30/16 posterior firm 50-60% closed -3 station cervical exam on 12/31/16 was unchanged and cervical exam today is unchanged. group B strep screen was returned as negative. Patient was dismissed from the hospital 12/31/16 taking Procardia 110 mg tablet every 4- 6 hours (she's been taking it about every 5 hours). The fibronectin was negative on 12/30/16. I did talk with Dr.Ana Paty JONES M at [facility] in [place] concerning this patient and she agrees with the treatments thus far. fibronectin has been collected results are pending at present time. The MFM agreed with placing patient on observation status here and no need to transported present time unless her condition should change. Improves with: Reports: None. Worsens with: Reports: None. Associated Symptoms: Reports: N. - Related Data. Allergies/Adverse Reactions: Allergies. Allergy/ AdvReacTypeSeverityReactionStatusDate / Time. No Known SnidhblcgIubodbnLsidzuet60/15/17 17:13. Home Medications: Home Meds. Cephalexin [Keflex] 500 mg PO QID #28 capsule 09/05/16 [Rx]. Doxylamine/ Pyridoxine HCl [Diclegis Dr 10-10 mg Tablet] 2 tab PO BEDTIME 09/05/16 [History] . PNV95/Ferrous Fumarate/FA [ Vitamin Tablet] 1 tab PO DAILY 09/05/16 [ History]. Doxylamine/Pyridoxine HCl [Diclegis Dr 10-10 mg Tablet] 1 - 2 each PO BID #90 tablet. 12/31/16 [Rx]. NIFEdipine [Procardia] 10 mg PO Q4H #180 cap 12/31/16 [Rx]. Past Medical History. HEENT History: Reports: Impaired Vision. Other HEENT History: wears contacts. Cardiovascular History: Reports: Other (See Below). Other Cardiovascular History: pt has fluctuation of heart rate and rhythms from SR_ST_SVT. States had previous symptoms checked "nothing ever became of it.". Pt has had no reoccurances or complications. Gastrointestinal History: Reports: Irritable Bowel Syndrome. Genitourinary History: Reports: UTI, Recurrent, Other (See Below). Other Genitourinary History: Pt has not had a UTI in "quite some time.". CHECK SERVICES CLERK History: Reports: , Other (See Below). Other OB/BYN History: states had had infertility , was started on meds to induce periods and Clomid for ovulation. Psychiatric History: Reports: Anxiety. Other Psychiatric History: insomnia. - Infectious Disease History. Infectious Disease History: Reports: Other (See Below). Other Infectious Disease History: C-diff Cleared- had a long time ago. Social & Family History. - Family History. Family Medical History: Noncontributory. Cardiac: Reports: CAD, High Cholesterol. - Tobacco Use. Smoking Status *Q: Never Smoker. Second Hand Smoke Exposure: No. - Caffeine Use. Caffeine Use: Reports: None. - Alcohol Use. Days Per Week of Alcohol Use: 0. - Recreational Drug Use. Recreational Drug Use: No. H&P Review of Systems. - Review of Systems: Review Of Systems: See Below. General: Reports: No Symptoms. HEENT: Reports: No Symptoms. Pulmonary: Reports: No Symptoms. Cardiovascular: Reports: No Symptoms. Gastrointestinal: Reports: No Symptoms. Genitourinary: Reports: No Symptoms. Musculoskeletal: Reports: No Symptoms. Skin: Reports: No Symptoms. Psychiatric: Reports: No Symptoms. Neurological: Reports: No Symptoms. Hematologic/Lymphatic: Reports: No Symptoms. Immunologic : Reports: No Symptoms. L&D Exam. - Exam. Exam: See Below. - Vital Signs. Weight: 150 lb. - OB Specific. Fundal Height In cm: 29. Movement: Active. Heart Tones: Present. Heart Tones per Min: 140. Heart Rate (FHR) Variability: Moderate (6-25 bmp). Presentation: Vertex. - Burns Score. Burns Score Cervix Position: Posterior. Burns Score Consistency: Soft. Burns Score Effacement: 51-70%. Burns Score Dilation: Closed. Burns Score Infant's Station: -3. Burns Score Total: 4. - Exam. General: Alert, Oriented. HEENT: Conjunctiva Clear, Mucosa Moist & [place], PERRLA. Neck: Supple, Trachea Midline. Lungs: Clear to Auscultation, Normal Respiratory Effort. Cardiovascular: Regular Rate, Regular Rhythm. GI/ Abdominal Exam: Normal Bowel Sounds, Soft, Non-Tender, No Organomegaly, No Distention, No Abnormal Bruit, No Mass, Pelvis Stable. Genitourinary: Normal external exam, Normal bimanual exam, Normal speculum exam. Extremities: Normal Inspection, Normal Range of Motion, Non-Tender, No Pedal Edema, Normal Capillary Refill. Skin: Warm, Dry, Intact. Neurological: Cranial Nerves Intact , Reflexes Equal Bilateral. Psychiatric: Alert, Normal Affect, Normal Mood. - Patient Data. Lab Results Last 24 hrs: Laboratory Results - last 24 hr. 01/01Range/Units. 16:21. Urine Color Yellow (Yellow). Urine Appearance Cloudy H (Clear). Urine pH 7.0 (5.0-8.0). Ur Specific [place] 1.020 (1.005-1.030). Urine Protein Negative (Negative). Urine Glucose (UA) Negative (Negative). Urine Ketones Negative (Negative). Urine Occult Blood Negative (Negative). Urine Nitrite Negative (Negative). Urine Bilirubin Negative (Negative). Urine Urobilinogen 0.2 (0.2-1.0). Ur Leukocyte Esterase Negative (Negative). Urine RBC 0-5 (0-5) /hpf. Urine WBC 0-5 (0-5) /hpf. Ur Epithelial Cells 5-10 H (0- 5) /hpf. Amorphous Sediment Many H (NOT SEEN) /hpf. Urine Bacteria Not seen (FEW) /hpf. Urine Mucus Not seen (FEW) /hpf. - Problem List. (1) Threatened labor. SNOMED Code(s): 580742274. ICD Code: O47.00 - FALSE LABOR BEFORE 37 COMPLETED WEEKS OF GEST, UNSP TRI Status: Acute Current Visit: No. (2) 29 weeks gestation of . SNOMED Code(s): 75623769. ICD Code: Z3A.29 - 29 WEEKS GESTATION OF Status: Acute Current Visit: No. Problem List Initiated/Reviewed/Updated: No. Orders Last 24hrs: Active Orders 24 hr. CategoryDate TimeStatus. Patient Status [ADT] RoutineADT 01/01/17 18:56Active. Antiembolic Devices [RC] PER UNIT ROUTINECare 01/01/17 19 :00Active. Bedrest Bathroom Privileges [RC] ASDIRECTEDCare 01/01/17 19: 01Active. Non Stress Test [RC] PER UNIT ROUTINECare 01/01/17 16: 15Inactive. Vital Signs [RC] PER UNIT ROUTINECare 01/01/17 16:15Active. Vital Signs [RC] [id number] 01/01/17 18:59Active. Regular Diet [DIET]Diet 01/01/17 DinnerActive. CULTURE URINE [RM] RoutineLab 01/01/17 16:21Received. FIBRONECTIN StatLab 01/01/17 18:20Received. Lactated Ringers [Ringers, Lactated ] 500 mlMed 01/01/17 19:10Ordered. IV .BOLUS. MorphineMed 01/01/17 21:00Once. 10 mg IM ONETIME ONE. NIFEdipine [Procardia]Med 01/01/17 19:00Ordered. 10 mg PO Q6H. hydrOXYzine HCl [Vistaril]Med 01/01/17 21:00Once. 50 mg IM ONETIME ONE. EFM External w TOCO [Electronic Heart Tones Ext wOth 01/01/17 18: 59Ordered. TOCO] [WOMSER] CONTINUOUS. SCD [Sequential Compression Device] [ OM.PC] RoutineOth 01/01/17 19:00Ordered. Resuscitation Status RoutineResus Stat 01/01/17 16:15Ordered. Medication Orders. Hydroxyzine HCl (Vistaril) 50 mg IM ONETIME ONE. Stop: 01/01/17 21:01. Lactated Ringer's (Ringers, Lactated ) 500 mls @ 500 mls/hr IV .BOLUS ONE. Stop: 01/01/17 20:09. Morphine Sulfate (Morphine) 10 mg IM ONETIME ONE. Stop: 01/01/17 21:01. Nifedipine (Procardia ) 10 mg PO Q6H LEONARDA. Stop: 01/03/17 13:01. Assessment/Plan Comment:: Observation status IV hydration and continue Procardia and IM morphine/ Vistaril. Ultrasound morning of 01/02/17 0800 hrs. revealed minimal funneling of internal cervical os which is stable, shortest cervical length measured 0.6 cm small amount of fluid remains within the endocervical canal. Cervical exam check of patient at 1040 revealed no change in cervix clinically cervical os is closed 60% posterior floating presenting part cephalic by ultrasound previously. Patient will be dismissed to return if any bleeding gush of fluid leaking fluid contractions or concerns patient has appointment Wednesday in the clinic keep follow-up appointment unless she returns to labor and delivery for evaluation. She will continue Procardia 10 mg by mouth every 4 hours - Discharge Data Discharge Date: 01/02/17 Discharge Disposition: Home, Self-Care 01 Condition: Good - Discharge Diagnosis/Problem(s) (1) Threatened labor SNOMED Code(s): 363458755 ICD Code: O47.00 - FALSE LABOR BEFORE 37 COMPLETED WEEKS OF GEST, UNSP TRI Status: Acute Current Visit: No Qualifiers: Trimester: third trimester Qualified Code(s): O47.03 - False labor before 37 completed weeks of gestation, third trimester (2) 29 weeks gestation of SNOMED Code(s): 64250427 ICD Code: Z3A.29 - 29 WEEKS GESTATION OF Status: Acute Current Visit: No - Patient Summary/Data Complications: None Consults: None Hospital Course: Uneventful - Patient Instructions Diet: Regular Diet as Tolerated Driving: Do Not Drive (Except for appointments.) Showering/Bathing: May Shower, No Tub Bathing/Swimming Notify Provider of: Fever, Increased Pain, Swelling and Redness, Drainage, Nausea and/or Vomiting - Discharge Plan Home Medications: Home Meds Cephalexin [Keflex] 500 mg PO QID #28 capsule 09/05/16 [Rx] Doxylamine/Pyridoxine HCl [Diclegis Dr 10-10 mg Tablet] 2 tab PO BEDTIME [History] PNV95/Ferrous Fumarate/FA [ Vitamin Tablet] 1 tab PO DAILY 09/05/16 [ History] Doxylamine/Pyridoxine HCl [Diclegis Dr 10-10 mg Tablet] 1 - 2 each PO BID #90 tablet. 12/31/16 [Rx] NIFEdipine [Procardia] 10 mg PO Q4H #180 cap 12/31/16 [Rx] Referrals: Bethel Sanchez MD [Physician] - (Has appointment wednesday01/04/17) - Discharge Summary/Plan Comment DC Time >30 min.: No - Patient Data Vitals - Most Recent: Last Vital Signs Temp 97.3 F 01/01/17 18:59 Pulse 94 01/01/17 18:59 Resp 17 01/01/17 18:59 BP 104/67 01/02/17 07:20 Pulse Ox 96 01/01/17 18:59 Weight - Most Recent: 150 lb Lab Results - Last 24 hrs: Laboratory Results - last 24 hr 01/01/17 01/01/17 Range/Units 16:21 18:20 Urine Color Yellow (Yellow) Urine Appearance Cloudy H (Clear) Urine pH 7.0 (5.0-8.0) Ur Specific [place] 1.020 (1.005-1.030) Urine Protein Negative (Negative) Urine Glucose (UA) Negative (Negative) Urine Ketones Negative (Negative) Urine Occult Blood Negative (Negative) Urine Nitrite Negative (Negative) Urine Bilirubin Negative (Negative) Urine Urobilinogen 0.2 (0.2-1.0) Ur Leukocyte Esterase Negative (Negative) Urine RBC 0-5 (0-5) /hpf Urine WBC 0-5 (0-5) /hpf Ur Epithelial Cells 5-10 H (0-5) /hpf Amorphous Sediment Many H (NOT SEEN) /hpf Urine Bacteria Not seen (FEW) /hpf Urine Mucus Not seen (FEW) /hpf Fibronectin Positive HEATHER Results - Last 24 hrs: Microbiology 01/01/17 16:21 Urine Culture - Preliminary Urine, Clean Catch Gram Negative Rods Med Orders - Current: Current Medications Lactated Ringer's (Ringers, Lactated) 1,000 mls @ 125 mls/hr IV ASDIRECTED [facility] Last Admin: 01/02/17 07:18 Dose: 125 mls/hr Nifedipine (Procardia) 10 mg PO Q6H LEONARDA Stop: 01/03/17 13:01 Last Admin: 01/02/17 07:20 Dose: 10 mg Discontinued Medications Diphtheria/Tetanus/Acell Pertussis (Adacel) 0.5 ml IM .ONCE ONE Stop: 01/02/17 10:09 Hydroxyzine HCl (Vistaril) 50 mg IM ONETIME ONE Stop: 01/01/17 21:01 Last Admin: 01/02/17 10:18 Dose: Not Given Hydroxyzine HCl (Vistaril) 50 mg IM ONETIME ONE Stop: 01/01/17 22:07 Last Admin: 01/01/17 22:30 Dose: 50 mg Lactated Ringer's (Ringers, Lactated) 500 mls @ 500 mls/hr IV .BOLUS ONE Stop: 01/01/17 20:09 Last Admin: 01/01/17 23:30 Dose: 125 mls/hr Morphine Sulfate (Morphine) 10 mg IM ONETIME ONE Stop: 01/01/17 21:01 Last Admin: 01/01/17 21:51 Dose: Not Given *Q Meaningful Use (DIS) - VTE *Q VTE Criteria *Q: - Stroke *Q Stroke Criteria *Q: - AMI *Q AMI Criteria *Q:
== END 2017-01-02 11:30 | disposition home or self-care (01) ==
LOC: JD.OB 15:10 → JD.OBCHECK 15:10 → JD.OB 18:56 → JD.OBCHECK 18:56 → JD.OB 19:38 → UNDOADMOB 19:38 → UNDODISOB 01-02 11:30
PROVIDERS: ADMIT Obstetrics & Gynecology; ATTEND Obstetrics & Gynecology
DX: O47.03 False labor before 37 completed weeks of gestation, third trimester (principal); Z3A.29 29 weeks gestation of pregnancy; Z79.899 Other long term (current) drug therapy; Z87.440 Personal history of urinary (tract) infections; Z86.19 Personal history of other infectious and parasitic diseases
CPT/HCPCS: 59025; 76817; 81001; 82731; 87086; 87088; 87186; 90715; 96372; A9270; G0378; J3410; J7120

== ENCOUNTER 2017-01-15 16:18 | Observation (INO) | payer BC ==
[2017-01-15] MEDS ORDERED: Lactated Ringers 500 ML IV ONE (16:55)
[2017-01-15] MEDS ORDERED: Terbutaline 1 MG/ML SDV SUBCUT ONE (16:55)
[2017-01-15] MEDS: NIFEdipine 10 MG Cap PO SCH ×2 (17:27→21:09)
[2017-01-15] MEDS: Lactated Ringers 1,000 ML IV SCH (17:30)
[2017-01-16] MEDS: NIFEdipine 10 MG Cap PO SCH ×3 (01:06→09:13)
--- NOTE | 2017-01-16 01:51 | HP ---
DATE OF ADMISSION: 01/15/2017 CHIEF COMPLAINT: contractions at 31 and 0/7 weeks gestational age. HISTORY OF PRESENT ILLNESS: The patient is a 26-year-old, 1, para 0, white female, who is evaluated in outpatient Labor and Delivery because of contractions in early . The patient presently is at 31 and 0/7 weeks gestational age as based upon an early ultrasound on 08/07/2016 at 8 and 0/7 weeks. She has had contractions previously approximately 2 weeks ago, at which time, she was monitored overnight, treated with terbutaline and Procardia. She has had a positive fibronectin in the past. The etiology of her labor was uncertain, however, the patient did have a bladder infection previously which was treated effectively with Macrobid x10 days. She has just finished that therapy. No inciting events reported by the patient. COURSE: The patient is a 1, para 0. Her last menstrual period was 06/07/2016. Her cycles are not regular. Her last period was definite on 06/07/2016, but due to irregularity, ultrasound dating was used to determine the NUNU. She had menarche at age 15. Positive HCG was on 07/08/2016. Cycles irregular. She was taking Clomid at the time of conception. COURSE: Otherwise, the patient has had ultrasound changes indicating a shortening of her cervix. This was first noted 2 weeks ago and was substantiated with an ultrasound done on 01/13/2017 showing a cervical length between 1.3 and 2.0 cm. Last week was 1.5 cm in length. Cervix was closed, however and there is some questionable funneling present. The patient has been placed at near bed rest, pelvic rest, and has stopped work until delivery. fibronectin on 12/30/2016 was negative, but was positive on 01/01/2017. She has been on Procardia 10 mg p.o. q.4 hours. She received first dose of hydroxyprogesterone caproate today 01/15/2017. She has received Celestone 12 mg IM on 12/30 and 12/31/2016. She declined genetic testing. Her [place] depression screen score was 9. GBS was negative. The patient is okay with epidural in Labor and Delivery. She does plan to breast- feed. Her course has been unremarkable until approximately 2 weeks ago, at which time contractions were noted. LABORATORY TESTING: In shows a blood count which is A positive, negative antibody screen, hemoglobin at first visit was 14.0, platelets were 270,000. She is rubella immune. Pap smear was negative. RPR is nonreactive. Hepatitis B surface antigen, HIV assays are both negative. Chlamydia and gonorrhea are both negative. Group B strep negative. Second trimester labs include a hemoglobin 12.7, normal. Platelets 238,000, normal. Diabetic screen test is 104. Her group B strep screen is negative. ALLERGIES: None. CURRENT MEDICATIONS: 1. Diclegis p.r.n. for nausea, taken early in the . 2. vitamins 1 daily. PAST MEDICAL HISTORY: Unremarkable. PAST SURGICAL HISTORY: Unremarkable. FAMILY HISTORY: Positive for mother with depression at approximately age 50, at present is doing well. Sister aged 29, alive and well. Father aged 52, alive and well except heart problems and on medications for cholesterol. Maternal grandmother age 75, alive and with heart problems and stents being placed. Maternal grandfather aged 78, alive and borderline diabetic. Paternal grandmother, 87, alive and well. Paternal grandfather, 90, alive and has heart disease. SOCIAL HISTORY: The patient is , is [place] Martinez. She does not use any significant amounts of alcohol, drugs, tobacco. She does not work outside the home at the present time. REVIEW OF SYSTEMS: GENERAL: The patient has no major concerns. She does have changes. SKIN: Negative. LUNGS/RESPIRATORY: No chest pain, shortness of breath, or wheezing noted. CARDIOVASCULAR: No irregularities or chest pain noted. No exercise intolerance is noted. BREAST: Change associated with . ABDOMEN: Contractions every 2 to 4 minutes upon admission to Labor and Delivery. GENITAL: The Patient denies any urine leakage, bleeding or bladder infection symptoms. EXTREMITIES: Negative. MUSCULOSKELETAL: Negative. NEUROLOGIC: Negative. PHYSICAL EXAMINATION: VITAL SIGNS: On last evaluation in clinic, her vital signs were stable. Blood pressure 106/62, weight was 147, heart rate was 145, pregravida weight was 136. The patient is height is 5 feet 2 inches, GENERAL: The patient is a well-developed, well-nourished, pleasant female of stated age, in no acute distress. She is only minimally anxious concerning this. SKIN: Warm, dry, without lesions. LUNGS: Clear with good breath sounds in all lung aviles. CARDIOVASCULAR: Shows regular rhythm without murmurs. BREAST: Deferred. GI: Abdomen protuberant with with fundal height consistent with her dates. : Cervical exam is closed, thick, no evidence of dilation. We have not done ultrasound of the cervix. Last evaluation done on 01/13/2017 showed a cervical length of 1.3 to 2.0 cm. EXTREMITIES AND NEUROLOGICAL: Grossly within normal limits. ASSESSMENT: 1. The patient is at 31 and 0/7 weeks gestational age, contractions with shortened cervix per ultrasound. Positive fibronectin. 2. The etiology of labor is unclear. 3. Group B strep screen is negative. 4. The patient has had betamethasone on 2 occasions on 12/30/2016 and 12/31/2016. 5. She had her first dose of hydroxyprogesterone caproate to help decrease any likelihood of contractions. PLAN: 1. The patient has received terbutaline and Procardia and has stopped nicole with this. She is stable at this time. 2. Urinalysis and CBC are within normal limits. 3. fibronectin is positive. 4. Monitor overnight, is stable in the morning, will discharge to home. If the patient breaks through and contracts, and does not stop, we would recommend sending her to a T[facility]. MMODAL /[id number]
[2017-01-16] MEDS: Lactated Ringers 1,000 ML IV SCH (03:01)
[2017-01-16 09:15] VITALS: BP 106/62
--- NOTE | 2017-01-16 10:10 | PCM.SN ---
- Free Text/Narrative Note: Discharge note: This is monitored overnight and seemed to have a reasonably stable course. Patient's been on Procardia 10 mg by mouth every 4 hours and with this is had only short runs of uterine irritability but no formal contractions. Her vital signs stable. monitoring has been reassuring with reactive NST noted. Exam today shows uterus to be soft, nontender. Cervical exam is deferred because patient's lack of any significant contractions. Assessment: 1. 31-05/30 week intrauterine , contractions, shortened cervix, positive fibronectin. Patient is stable at this time on medications Plan: 1. Continue Procardia as above 2. Request 3. Recommend pelvic Condition: Guarded rest but not absolute bedrest 4. Return to clinic in 1 week. 5. Call for increased contractions, bleeding, loss of fluid or decreased activity. Condition: Guarded because of potential labor
== END 2017-01-16 10:30 | disposition home or self-care (01) ==
LOC: JD.OBCHECK 16:18 → JD.OB 16:19 → JD.OBCHECK 16:55 → JD.OB 16:56 → JD.MS 16:56 → UNDOADMOB 16:56
PROVIDERS: ADMIT Obstetrics & Gynecology; ATTEND Obstetrics & Gynecology
DX: O60.03 Preterm labor without delivery, third trimester (principal); Z3A.31 31 weeks gestation of pregnancy; Z79.899 Other long term (current) drug therapy
CPT/HCPCS: 36415; 81001; 82731; 85025; A9270; J3105; J7120; 96360; 96361; 96372; G0378

== ENCOUNTER 2017-03-03 02:00 | Inpatient (IN) | payer BC ==
[2017-03-03] MEDS ORDERED: Bupivacaine 0.25% 10 ML SDV ONE (12:00)
[2017-03-03] MEDS ORDERED: Sodium Chloride 0.9% 10 ML Syringe FLUSH PRN (19:20)
[2017-03-03] MEDS ORDERED: Oxytocin/Lactated Ringers 10 UNIT/1,000 ML BAG IV SCH (19:30)
[2017-03-03] MEDS ORDERED: fentaNYL 100 MCG/2 ML SDV EPIDUR PRN (19:38)
[2017-03-03] MEDS ORDERED: Ondansetron 4 MG/2 ML SDV IVPUSH PRN (19:38)
[2017-03-03] MEDS ORDERED: ePHEDrine 50 MG/ML SDV IVPUSH PRN (19:38)
[2017-03-03] MEDS: Lactated Ringers 1,000 ML IV SCH ×2 (19:42→22:24)
[2017-03-03] MEDS ORDERED: Bupivacaine/fentaNYL/NS 100 ML Bag EPIDUR SCH (19:45)
--- NOTE | 2017-03-03 19:47 | PCM.PREANE ---
Preanesthetic Assessment - Anesthesia/Transfusion/Family Hx Anesthesia History: Prior Anesthesia Without Reaction Type of Anesthesia Reaction: Excessive Nausea/Vomiting Family History of Anesthesia Reaction: No Transfusion History: No Prior Transfusion(s) Intubation History: Unknown - Review of Systems General: No Symptoms Pulmonary: No Symptoms Cardiovascular: Palpitations (anxiety induced) Gastrointestinal: No Symptoms Neurological: No Symptoms Other: Reports: Easy Bruising, Anxiety - Physical Assessment NPO Status Date: 03/03/17 NPO Status Time: 17:30 Pulse: 111 O2 Sat by Pulse Oximetry: 99 Respiratory Rate: 20 Blood Pressure: 135/97 Temperature: 36.7 C Height: 1.57 m Weight: 71.804 kg ASA Class: 2 Mental Status: Alert & Oriented x3 Airway Class: Mallampati = 2 Dentition: Reports: Normal Dentition, Caries Thyro-Mental Finger Breadths: 3 Mouth Opening Finger Breadths: 3 ROM/Head Extension: Full Lungs: Clear to Auscultation, Normal Respiratory Effort Cardiovascular: Regular Rate, Regular Rhythm, No Murmurs - Lab Values: Laboratory Last Values WBC 12.74 K/mm3 (3.98-10.04) H 03/03/17 19:30 RBC 3.97 M/mm3 (3.98-5.22) L 03/03/17 19:30 Hgb 12.4 gm/L (11.2-15.7) 03/03/17 19:30 Hct 35.8 % (34.1-44.9) 03/03/17 19:30 MCV 90.2 fl (79.4-94.8) 03/03/17 19:30 MCH 31.2 pg (25.6-32.2) 03/03/17 19:30 MCHC 34.6 g/dl (32.2-35.5) 03/03/17 19:30 RDW Std Deviation 41.9 fL (36.4-46.3) 03/03/17 19:30 Plt Count 228 K/mm3 (182-369) 03/03/17 19:30 MPV 10.0 fl (9.4-12.3) 03/03/17 19:30 Neut % (Auto) 65.1 % (34.0-71.1) 03/03/17 19:30 Lymph % (Auto) 26.3 % (19.3-51.7) 03/03/17 19:30 [place] % (Auto) 7.9 % (4.7-12.5) 03/03/17 19:30 Eos % (Auto) 0.2 (0.7-5.8) L 03/03/17 19:30 Baso % (Auto) 0.2 % (0.1-1.2) 03/03/17 19:30 Neut # (Auto) 8.30 K/mm3 (1.56-6.13) H 03/03/17 19:30 Lymph # (Auto) 3.35 K/mm3 (1.18-3.74) 03/03/17 19:30 [place] # (Auto) 1.01 K/mm3 (0.24-0.36) H 03/03/17 19:30 Eos # (Auto) 0.02 K/mm3 (0.04-0.36) L 03/03/17 19:30 Baso # (Auto) 0.02 K/mm3 (0.01-0.08) 03/03/17 19:30 Labs reviewed and noted and within acceptable ranges to proceed with epidural. - Allergies Allergies/Adverse Reactions: Allergies Allergy/AdvReac Type Severity Reaction Status Date / Time No Known Allergies Allergy Verified 03/03/17 19:34 - Anesthesia Plan Pre-Op Medication Ordered: None - Acknowledgements Anesthesia Type Planned: Epidural Pt an Appropriate Candidate for the Planned Anesthesia: Yes Alternatives and Risks of Anesthesia Discussed w Pt/Guardian: Yes Pt/Guardian Understands and Agrees with Anesthesia Plan: Yes PreAnesthesia Questionnaire - Past Health History Medical/Surgical History: Denies Medical/Surgical History HEENT History: Reports: Impaired Vision Other HEENT History: wears contacts. Cardiovascular History: Reports: Other (See Below) Other Cardiovascular History: pt has fluctuation of heart rate and rhythms from [id number]. States had previous symptoms checked "nothing ever became of it.". Pt has had no reoccurances or complications. Gastrointestinal History: Reports: Irritable Bowel Syndrome Genitourinary History: Reports: UTI, Recurrent, Other (See Below) Other Genitourinary History: Pt has not had a UTI in "quite some time." [employer] History: Reports: , Other (See Below) Other OB/BYN History: states had had infertility, was started on meds to induce periods and Clomid for ovulation. Psychiatric History: Reports: Anxiety Other Psychiatric History: insomnia - Infectious Disease History Infectious Disease History: Reports: Other (See Below) Other Infectious Disease History: C-diff Cleared- had a long time ago - Past Surgical History HEENT Surgical History: Reports: Oral Surgery Other HEENT Surgeries/Procedures: [place] Teeth 2014 - SUBSTANCE USE Smoking Status *Q: Never Smoker Second Hand Smoke Exposure: No Days Per Week of Alcohol Use: 0 Recreational Drug Use History: No - HOME MEDS Home Medications: Home Meds Doxylamine/Pyridoxine HCl [Diclegis Dr 10-10 mg Tablet] 1 - 2 each PO BID #90 tablet.dr 12/31/16 [Rx] Pnv No.122/Iron/Folic Acid [ Multi Tablet] 1 each PO DAILY 01/17/17 [ History] NIFEdipine [Procardia] 10 mg PO Q6HR 01/28/17 [History] Progesterone [Progesterone In Oil] 250 mg IM WEEKLY 01/28/17 [History] - CURRENT (IN HOUSE) MEDS Current Meds: Current Medications Ephedrine Sulfate (Ephedrine Sulfate) 5 mg IVPUSH ASDIRECTED PRN PRN Reason: Hypotension Fentanyl (Sublimaze) 100 mcg EPIDUR Q3H PRN PRN Reason: Pain Fentanyl/Bupivacaine HCl (Fentanyl/Bupivacaine/Ns 2 Mcg-0.125% 100 Ml) 100 ml EPIDUR ASDIRECTED LEONARDA Lactated Ringer's (Ringers, Lactated) 1,000 mls @ 100 mls/hr IV ASDIRECTED LEONARDA Oxytocin/Lactated Ringer's (Pitocin In Lr 10 Units/1,000 Ml) 10 unit in 1,000 mls @ 12 mls/hr IV TITRATE LEONARDA; 2 MUNITS/MIN PRN Reason: Protocol Ondansetron HCl (Zofran) 4 mg IVPUSH ONETIME PRN PRN Reason: Nausea/Vomiting Sodium Chloride (Saline Flush) 10 ml FLUSH ASDIRECTED PRN PRN Reason: Keep Vein Open
--- NOTE | 2017-03-03 21:04 | PCM.LDHP ---
L&D History of Present Illness - General Date of Service: 03/03/17 Admit Problem/Dx: Patient Status Order with Admit Dx/Problem 03/03/17 19:20 Patient Status [ADT] Routine Admission Diagnosis/Problem Admission Diagnosis/Problem 03/03/17 20:47 37-5/7 week intrauterine , severe intrauterine growth restriction Source of Information: Patient History Limitations: Reports: No Limitations - History of Present Illness Introduction:: History of present illness: Cassandra is a 26-year-old 1 para 0 white female at 37-5/7 weeks with an NUNU of 03/19/2017 who is admitted for elective induction of labor because of severe intrauterine growth restriction. She has been followed closely throughout the with testing. She in the late second trimester and early third trimester had a history of labor. As gestational age increased her fetuses growth rate diminished and recently has the baby has been at a size consistent with the -2 standard deviations for gestational age.. Biophysical profiles have been reassuring and ST ratios have been done on the umbilical cord with normal results. Patient has received betamethasone in the past. It is felt that at 37-5/7 weeks the intrauterine environment is becoming more hostile then the extrauterine environment therefore she was advised to undergo elective induction of labor. The procedure of elective induction of labor, its risks, benefits, alternatives of care discussed in detail the patient. She appears to understand and wishes to proceed. 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 Patient's is dated by an ultrasound done at 8 0/7 weeks on 08/19/2016. It is supported by early ultrasound on 2016 at 19 weeks. Thereafter the ultrasounds have progressively showed a growth restricted pattern. Her last menstrual period was uncertain at 06/07/2016 having periods that are irregular. She had menarche at age 15. Positive hCG was on 07/08. course has been complicated by labor early on first evidence of labor currently at approximately 28 weeks gestational age. She is noted to have a somewhat shortened cervix at that time. With cervix showing length down to 1.3 cm with Valsalva. Fibronectin however was negative. She they're after was monitored with serial cervical lengths and cervix was noted to be 2 cm dilated. Patient was started on Procardia and was continued on Procardia until approximately 36+ weeks gestational age. Intermittent runs of contractions and had numerous outpatient evaluations in labor and delivery. Betamethasone was given to the patient in early third trimester to facilitate lung lung maturation. Again testing with biophysical profiles and nonstress tests have been within normal limits of the last several weeks. Patient became with Clomid. She declined genetic testing. End of her depression screening score on 10/15/2016 was 9normal. Group B strep screen is negative. as had some anxiety, insomnia during the course of . Weight gain during the course of the was from a first weight of 136-159 for 23 pound gain. Vital signs are stable throughout the course. heart rate was normal. Fundal height growth was lagging at times during the course of care. Laboratory testing: Blood type is A+ with negative and ice cream. First labs showed a hemoglobin of 14.0 g/dL and a platelet count of 270 ,000. Pap smear is negative. Rubella shows immunity is nonreactive. Urine culture is negative. Hepatitis B and HIV assays were both negative. Her second trimester testing showed hemoglobin of 12.7 and platelets 238,000. One-hour GTT was normal at 104. Group B strep screen was negative. Serum quantitative beta- hCG on 07/21/2016 was 6691.0. Allergies none Medications: 1. Diclegis when necessary 2. vitamins 1 daily. Past medical history: 1. Infertility 2. Anxiety past surgical history: Unremarkable Family history: Mother is alive and well at age 50. Father is alive and well with the exception of heart disease and hypercholesterolemia on meds-at age 50 . One sister age 29 alive and well. Maternal grandfather is alive and with borderline diabetes at age 78. Maternal grandmother at age 75 is alive with heart problems and has had stents placed. Paternal grandmother is 87 and alive and well and paternal grandfathers 90 and alive and well with the exception of some heart disease. Social history: Patient is , lives in [place]. She is to [facility]. She does not use any significant amounts of alcohol, drugs or tobacco. Review of systems: In general patient is having no concerns. She is feeling some contractions. Baby has been active. Skin: Negative Cardiovascular: No chest pain or exercise intolerance Lungs: No infectious symptoms or shortness of breath Breasts: Changes associated with -patient plans to nurse GI: Negative : Changes associated with Musculoskeletal: Negative with exception of occasional edema Neurological: Negative Physical exam: In general patient is a well-developed, well-nourished, pleasant female stated age in no acute distress. Pregravid weight was 136, height is 5 feet 2, pregravid by mass index is 24.5 and blood pressure was 104/72. Her weight at this time is 159. Skin is warm and dry without lesions. Lungs are clear with good breath sounds in all lung aviles. Cardiovascular exam shows regular rate and rhythm without murmurs. Breast exam deferred. Abdomen is protuberant with this last fundal height at 36 cm with baby in vertex presentation. Genital exam upon admission to the hospital tonight is 3 cm, 85% effaced, very soft, -2 station, mid to slightly posterior position. Artificial rupture membranes is undertaken to induce labor. This resulted in clear fluid. Baby was in vertex presentation and head is well applied to the cervix. Extremities and neurological exam grossly within normal limits. - Related Data Allergies/Adverse Reactions: Allergies Allergy/AdvReac Type Severity Reaction Status Date / Time No Known Allergies Allergy Verified 03/03/17 19:34 Home Medications: Home Meds Doxylamine/Pyridoxine HCl [Sarah Mueller 10-10 mg Tablet] 1 - 2 each PO BID #90 tablet. 12/31/16 [Rx] Pnv No.122/Iron/Folic Acid [ Multi Tablet] 1 each PO DAILY 01/17/17 [ History] Past Medical History - Past Health History Medical/Surgical History: Denies Medical/Surgical History HEENT History: Reports: Impaired Vision Other HEENT History: wears contacts. Cardiovascular History: Reports: Other (See Below) Other Cardiovascular History: pt has fluctuation of heart rate and rhythms from SR_ST_SVT. States had previous symptoms checked "nothing ever became of it.". Pt has had no reoccurances or complications. Gastrointestinal History: Reports: Irritable Bowel Syndrome Genitourinary History: Reports: UTI, Recurrent, Other (See Below) Other Genitourinary History: Pt has not had a UTI in "quite some time." DIRECTOR OF RECRUITMENT History: Reports: , Other (See Below) Other OB/BYN History: states had had infertility, was started on meds to induce periods and Clomid for ovulation. Psychiatric History: Reports: Anxiety Other Psychiatric History: insomnia - Infectious Disease History Infectious Disease History: Reports: Other (See Below) Other Infectious Disease History: C-diff Cleared- had a long time ago - Past Surgical History HEENT Surgical History: Reports: Oral Surgery Other HEENT Surgeries/Procedures: [place] [facility] 2014 Social & Family History - Family History Family Medical History: Noncontributory Cardiac: Reports: CAD, High Cholesterol - Tobacco Use Smoking Status *Q: Never Smoker Second Hand Smoke Exposure: No - Caffeine Use Caffeine Use: Reports: None - Alcohol Use Days Per Week of Alcohol Use: 0 - Recreational Drug Use Recreational Drug Use: No H&P Review of Systems - Review of Systems: Review Of Systems: See Below L&D Exam - Exam Exam: See Below - Vital Signs Vital Signs: Last Vital Signs Temp 36.7 C 03/03/17 19:51 Pulse 111 H 03/03/17 19:51 Resp 20 03/03/17 19:51 BP 135/97 H 03/03/17 19:51 Pulse Ox 99 03/03/17 19:51 Weight: 71.804 kg - Patient Data Lab Results Last 24 hrs: Laboratory Results - last 24 hr 03/03/17 03/03/17 Range/Units 19:30 19:30 WBC 12.74 H (3.98-10.04) K/mm3 RBC 3.97 L (3.98-5.22) M/mm3 Hgb 12.4 (11.2-15.7) gm/L Hct 35.8 (34.1-44.9) % MCV 90.2 (79.4-94.8) fl MCH 31.2 (25.6-32.2) pg MCHC 34.6 (32.2-35.5) g/dl RDW Std Deviation 41.9 (36.4-46.3) fL Plt Count 228 (182-369) K/mm3 MPV 10.0 (9.4-12.3) fl Neut % (Auto) 65.1 (34.0-71.1) % Lymph % (Auto) 26.3 (19.3-51.7) % [place] % (Auto) 7.9 (4.7-12.5) % Eos % (Auto) 0.2 L (0.7-5.8) Baso % (Auto) 0.2 (0.1-1.2) % Neut # (Auto) 8.30 H (1.56-6.13) K/mm3 Lymph # (Auto) 3.35 (1.18-3.74) K/mm3 [place] # (Auto) 1.01 H (0.24-0.36) K/mm3 Eos # (Auto) 0.02 L (0.04-0.36) K/mm3 Baso # (Auto) 0.02 (0.01-0.08) K/mm3 Blood Type A POSITIVE Gel Antibody Screen Negative Result Diagrams: 03/03/17 19:30 Problem List Initiated/Reviewed/Updated: Yes Orders Last 24hrs: Active Orders 24 hr Category Date Time Status Patient Status [ADT] Routine ADT 03/03/17 19:20 Active Activity as Tolerated [RC] PFP Care 03/03/17 19:20 Active Communication Order [RC] ASDIRECTED Care 03/03/17 19:20 Active Heart Tones [RC] ASDIRECTED Care 03/03/17 19:20 Active Notify Provider [RC] ASDIRECTED Care 03/03/17 19:37 Active Notify Provider [RC] PFP Care 03/03/17 19:20 Active Notify Provider [RC] PRN Care 03/03/17 19:20 Active Oxygen Therapy [RC] ASDIRECTED Care 03/03/17 19:37 Active Peripheral IV Care [RC] . DIRECTED Care 03/03/17 19:20 Active Pulse Oximetry [RC] ASDIRECTED Care 03/03/17 19:37 Active Vital Signs [RC] PER UNIT ROUTINE Care 03/03/17 19:20 Active Clear Liquid Diet [DIET] Diet 03/03/17 Dinner Active Bupivacaine/fentaNYL/NS [fentaNYL/Bupivacaine/NS 2 MCG- Med 03/03/17 19:45 Active 0.125% 100 ML] 100 ml EPIDUR ASDIRECTED Lactated Ringers [Ringers, Lactated] 1,000 ml Med 03/03/17 19:30 Active IV ASDIRECTED Ondansetron [Zofran] Med 03/03/17 19:38 Active 4 mg IVPUSH ONETIME PRN Oxytocin/Lactated Ringers [Pitocin in LR 10 Units/1,000 Med 03/03/17 19:30 Active ML] 10 unit in 1,000 ml IV TITRATE Sodium Chloride 0.9% [Saline Flush] Med 03/03/17 19:20 Active 10 ml FLUSH ASDIRECTED PRN ePHEDrine [ePHEDrine Sulfate] Med 03/03/17 19:38 Active 5 mg IVPUSH ASDIRECTED PRN fentaNYL [Sublimaze] Med 03/03/17 19:38 Active 100 mcg EPIDUR Q3H PRN Electronic Heart Tones Ext w TOCO [WOMSER] Oth 03/03/17 19:20 Ordered Routine Electronic Heart Tones Internal [WOMSER] Per Unit Oth 03/03/17 19:20 Ordered Routine Peripheral IV Insertion Adult [OM.PC] Routine Oth 03/03/17 19:20 Ordered Resuscitation Status Routine Resus Stat 03/03/17 19:20 Ordered Medication Orders Ephedrine Sulfate (Ephedrine Sulfate) 5 mg IVPUSH ASDIRECTED PRN PRN Reason: Hypotension Fentanyl (Sublimaze) 100 mcg EPIDUR Q3H PRN PRN Reason: Pain Fentanyl/Bupivacaine HCl (Fentanyl/Bupivacaine/Ns 2 Mcg-0.125% 100 Ml) 100 ml EPIDUR ASDIRECTED LEONARDA Lactated Ringer's (Ringers, Lactated) 1,000 mls @ 100 mls/hr IV ASDIRECTED LEONARDA Last Admin: 03/03/17 19:42 Dose: 100 mls/hr Oxytocin/Lactated Ringer's (Pitocin In Lr 10 Units/1,000 Ml) 10 unit in 1,000 mls @ 12 mls/hr IV TITRATE LEONARDA; 2 MUNITS/MIN PRN Reason: Protocol Last Admin: 03/03/17 19:42 Dose: 2 munits/min, 12 mls/hr Ondansetron HCl (Zofran) 4 mg IVPUSH ONETIME PRN PRN Reason: Nausea/Vomiting Sodium Chloride (Saline Flush) 10 ml FLUSH ASDIRECTED PRN PRN Reason: Keep Vein Open Assessment/Plan Comment:: Assessment: 1. 37-5/7 week intrauterine , severe intrauterine growth restriction. Discussions held with patient as to the risks versus benefits of delivery at this gestational age with the growth restriction and patient has opted for induction of labor. I feel at this time the extrauterine environment is more hospitable than is the intrauterine environment. 2. Patient is accepting of epidural in labor and delivery 3. Patient plans to nurse 4. Group B strep screen negative. Plan: 1. Pitocin/Artificial rupture membranes undertaken. Patient was nicole every 6 minutes upon admission to the hospital 2. Epidural when necessary for pain 3. Watch the heart tones closely for evidence of intolerance of labor 4. CBC upon admission to separate rows desired 5. Pediatrics informed of patient's presence in labor and delivery.
[2017-03-04] MEDS ORDERED: Oxytocin/Lactated Ringers 10 UNIT/1,000 ML BAG IV SCH (01:15)
--- NOTE | 2017-03-04 02:28 | PCM.SN ---
- Free Text/Narrative Note: Delivery note: Cassandra was admitted on the evening of 03/03/2017 for elective induction of labor for the diagnosis of 37-5/7 week intrauterine with intrauterine growth restriction. Pitocin induction with artificial rupture membranes was accomplished. Patient was 3 cm, 85% effaced, -2 station, mid position, very soft and cephalic presentation. Neck fluid was clear. Patient progressed to complete cervical dilation by approximately 0045 hours on 2016. She delivered a viable, max, 2440 g (5 lbs. 6 oz.) female in a right occiput anterior position at 0200 hrs. The patient had a first-degree perineal laceration which was eventually repaired with one single figure-of- eight suture of 3-0 Monocryl. Baby had Apgars of 7 and 9 and was 18-1/2 inches in length. Pitocin was started IV to facilitate increase in uterine tone and decrease likelihood of bleeding. The placenta delivered in a Harrison fashion at 0205 hrs. it appeared intact, small and complete. It is sent for histologic/pathology evaluation because of the intrauterine growth restriction diagnosis. It had 3 vessels. Estimated blood loss was 100 mL.
[2017-03-04] MEDS ORDERED: Docusate Sodium 100 MG Cap PO PRN (02:49)
[2017-03-04] MEDS ORDERED: Benzocaine/Menthol 20%-0.5% Spray 56 GM Canister TOP PRN (02:49)
[2017-03-04] MEDS ORDERED: Lanolin 100% Cream 7 GM Tube TOP PRN (02:49)
[2017-03-04] MEDS ORDERED: Witch Hazel Medicated Pads 100/Jar TOP PRN (02:49)
[2017-03-04] MEDS: Ibuprofen 600 MG Tab PO PRN ×2 (04:16→17:05)
[2017-03-04] MEDS: Acetaminophen 325 MG Tab PO PRN (08:56)
[2017-03-04] MEDS: Prenatal Multivitamin with Calcium/Folic Acid/Iron Tab PO SCH (08:59)
[2017-03-04] MEDS ORDERED: Ondansetron 4 MG Tab.DIS PO PRN (09:23)
--- NOTE | 2017-03-04 10:10 | PCM48HPAN ---
Post Anesthesia Note - EVALUATION WITHIN 48HRS OF ANESTHETIC Vital Signs in Normal Range: Yes Patient Participated in Evaluation: Yes Respiratory Function Stable: Yes Airway Patent: Yes Cardiovascular Function Stable: Yes Hydration Status Stable: Yes Pain Control Satisfactory: Yes Nausea and Vomiting Control Satisfactory: Yes Mental Status Recovered: Yes - COMMENTS/OBSERVATIONS Free Text/Narrative:: Loida is up moving around today. She feels good. She denies any back pain, numbness/tingling in her lower extremities, and headache at this time. She has no further question. Baby is doing well. Encouraged to call if she has any further questions. No complications noted.
[2017-03-04] MEDS ORDERED: Zolpidem 5 MG Tab PO PRN (14:41)
[2017-03-05] MEDS: Acetaminophen 325 MG Tab PO PRN (03:45)
--- NOTE | 2017-03-05 07:51 | PCM.SN ---
- Free Text/Narrative Note: In general patient is doing well. Minimal lochia, voiding well. Did get some sleepless night. Patient is afebrile, vital signs stable. Abdomen is flat, soft, nontender with uterus just below the umbilicus. It is nontender. Lower extremities nontender. Hemoglobin was 12.4 platelets are 214,000. Assessment/plan: 1. Routine care. Home either later today or tomorrow.
[2017-03-05] MEDS: Prenatal Multivitamin with Calcium/Folic Acid/Iron Tab PO SCH (10:13)
[2017-03-05] MEDS: Ibuprofen 600 MG Tab PO PRN (15:59)
[2017-03-06] MEDS: Ibuprofen 600 MG Tab PO PRN (04:10)
[2017-03-06 04:39] VITALS: BP 125/78
--- NOTE | 2017-03-06 10:58 | PCM.DCSUM1 ---
Discharge Summary - Hospital Course Free Text/Narrative:: [facility] Provider Simple Note Patient Name: MARIAH JAMISON Date of : 89 Patient Status: Inpatient Attending Provider: Ascencion Strong Date: 03/04/17 02:24 Initialization Date: 03/04/17 02:24 - Free Text/Narrative Note: Delivery note: Cassandra was admitted on the evening of 03/03/2017 for elective induction of labor for the diagnosis of 37-5/7 week intrauterine with intrauterine growth restriction. Pitocin induction with artificial rupture membranes was accomplished. Patient was 3 cm, 85% effaced, -2 station, mid position, very soft and cephalic presentation. Neck fluid was clear. Patient progressed to complete cervical dilation by approximately 0045 hours on 2016. She delivered a viable, max, 2440 g (5 lbs. 6 oz.) female infant in a right occiput anterior position at 0200 hrs. The patient had a first-degree perineal laceration which was eventually repaired with one single figure-of- eight suture of 3-0 Monocryl. Baby had Apgars of 7 and 9 and was 18-1/2 inches in length. Pitocin was started IV to facilitate increase in uterine tone and decrease likelihood of bleeding. The placenta delivered in a Harrison fashion at 0205 hrs. it appeared intact, small and complete. It is sent for histologic/pathology evaluation because of the intrauterine growth restriction diagnosis. It had 3 vessels. Estimated blood loss was 100 mL. HPI Initial Comments: [facility] Provider Simple Note Patient Name: MARIAH JAMISON Date of : [birth year] Patient Status: Inpatient Attending Provider: Ascencion Strong Date: 03/04/17 02:24 Initialization Date: 03/04/17 02:24 - Free Text/Narrative Note: Delivery note: Cassandra was admitted on the evening of 03/03/2017 for elective induction of labor for the diagnosis of 37-5/7 week intrauterine with intrauterine growth restriction. Pitocin induction with artificial rupture membranes was accomplished. Patient was 3 cm, 85% effaced, -2 station, mid position, very soft and cephalic presentation. Neck fluid was clear. Patient progressed to complete cervical dilation by approximately 0045 hours on 2016. She delivered a viable, max, 2440 g (5 lbs. 6 oz.) female infant in a right occiput anterior position at 0200 hrs. The patient had a first-degree perineal laceration which was eventually repaired with one single figure-of- eight suture of 3-0 Monocryl. Baby had Apgars of 7 and 9 and was 18-1/2 inches in length. Pitocin was started IV to facilitate increase in uterine tone and decrease likelihood of bleeding. The placenta delivered in a Harrison fashion at 0205 hrs. it appeared intact, small and complete. It is sent for histologic/pathology evaluation because of the intrauterine growth restriction diagnosis. It had 3 vessels. Estimated blood loss was 100 mL. Brief History: [facility] . Provider Simple Note. [facility]: [id number]. Date of : Patient Status: Inpatient. Attending Provider: Ascencion Strong FAccount Number : [id number]. Date: 03/04/17 02:24Initialization Date: 03/04/17 02:24. - Free Text/Narrative. Note: Delivery note: Cassandra was admitted on the evening of 03/03/2017 for elective induction of labor for the diagnosis of 37-5/7 week intrauterine with intrauterine growth restriction. Pitocin induction with artificial rupture membranes was accomplished. Patient was 3 cm, 85% effaced, -2 station, mid position, very soft and cephalic presentation. Neck fluid was clear. Patient progressed to complete cervical dilation by approximately 0045 hours on 03/04/2017. She delivered a viable, max, 2440 g (5 lbs. 6 oz.) female infant in a right occiput anterior position at 0200 hrs. The patient had a first-degree perineal laceration which was eventually repaired with one single [id number] suture of 3-0 Monocryl. Baby had Apgars of 7 and 9 and was 18-1/2 inches in length. Pitocin was started IV to facilitate increase in uterine tone and decrease likelihood of bleeding. The placenta delivered in a Harrison fashion at 0205 hrs. it appeared intact, small and complete. It is sent for histologic/pathology evaluation because of the intrauterine growth restriction diagnosis. It had 3 vessels. Estimated blood loss was 100 mL. - Discharge Data Discharge Date: 03/06/17 Discharge Disposition: Home, Self-Care 01 Condition: Good - Discharge Diagnosis/Problem(s) (1) 37 weeks gestation of SNOMED Code(s): 16116557 ICD Code: Z3A.37 - 37 WEEKS GESTATION OF Status: Acute Current Visit: Yes (2) IUGR (intrauterine growth retardation), delivered, current hospitalization SNOMED Code(s): 77327765 ICD Code: O36.5990 - MATERN CARE FOR OTH OR SUSP POOR FETL GRTH, UNSP TRI, UNSP Status: Acute Current Visit: Yes - Patient Summary/Data Complications: None Consults: None Hospital Course: Uneventful - Patient Instructions Diet: Regular Diet as Tolerated Driving: Do Not Drive (48 hours) Showering/Bathing: May Shower Notify Provider of: Fever, Increased Pain, Swelling and Redness, Drainage, Nausea and/or Vomiting - Discharge Plan Home Medications: Home Meds Pnv No.122/Iron/Folic Acid [ Multi Tablet] 1 each PO DAILY 01/17/17 [ History] Acetaminophen [Tylenol] 650 mg PO Q6H PRN tablet 03/06/17 [Rx] Benzocaine/Menthol [Dermoplast Pain Relief [place]] 1 spray TOP ASDIRECTED PRN canister 03/06/17 [Rx] Docusate Sodium [Colace] 100 mg PO BID PRN cap 03/06/17 [Rx] Ibuprofen [IJD: Ibuprofen] 600 mg PO Q6H PRN tablet 03/06/17 [Rx] Lanolin [Lansinoh HPA] 1 applic TOP ASDIRECTED PRN tube 03/06/17 [Rx] Witch Briana [Tucks] 1 pad TOP ASDIRECTED PRN pad 03/06/17 [Rx] Referrals: Ascencion Strong MD [Primary Care Provider] - (2 weeks) - Discharge Summary/Plan Comment DC Time >30 min.: No - Patient Data Vitals - Most Recent: Last Vital Signs Temp 97.6 F 03/06/17 04:00 Pulse 65 03/06/17 04:12 Resp 18 03/06/17 04:12 BP 125/78 03/06/17 04:12 Pulse Ox 98 03/06/17 04:12 Weight - Most Recent: 158 lb 4.8 oz Med Orders - Current: Current Medications Acetaminophen (Tylenol) 650 mg PO Q4H PRN PRN Reason: mild pain or fever Last Admin: 03/05/17 03:45 Dose: 650 mg Benzocaine/Menthol (Dermoplast Pain Relief [place]) 0 gm TOP ASDIRECTED PRN PRN Reason: Perineal Comfort Measure Last Admin: 03/04/17 04:09 Dose: 1 applic Docusate Sodium (Colace) 100 mg PO BID PRN PRN Reason: Constipation Emollient Ointment (Lansinoh Hpa) 0 gm TOP ASDIRECTED PRN PRN Reason: Sore Nipples Ibuprofen (Motrin) 600 mg PO Q4H PRN PRN Reason: Mild pain or fever Last Admin: 03/06/17 04:10 Dose: 600 mg Ondansetron HCl (Zofran Odt) 4 mg PO Q4H PRN PRN Reason: Nausea/Vomiting Last Admin: 03/04/17 10:37 Dose: 4 mg Prenat Multivit/Dent/Iron/Folic Ac ( Plus Iron) 1 each PO DAILY LEONARDA Last Admin: 03/05/17 10:13 Dose: 1 each Witch Briana (Tucks) 1 pad TOP ASDIRECTED PRN PRN Reason: Hemorrhoid pain Last Admin: 03/04/17 04:08 Dose: 1 applic Zolpidem Tartrate (Ambien) 5 mg PO BEDTIME PRN PRN Reason: Sleep Last Admin: 03/04/17 20:20 Dose: 5 mg Discontinued Medications Bupivacaine HCl (Sensorcaine-Mpf 0.25%) 10 ml .ROUTE .STK-MED ONE Stop: 03/03/17 12:01 Ephedrine Sulfate (Ephedrine Sulfate) 5 mg IVPUSH ASDIRECTED PRN PRN Reason: Hypotension Fentanyl (Sublimaze) 100 mcg EPIDUR Q3H PRN PRN Reason: Pain Last Admin: 03/03/17 22:04 Dose: 100 mcg Fentanyl/Bupivacaine HCl (Fentanyl/Bupivacaine/Ns 2 Mcg-0.125% 100 Ml) 100 ml EPIDUR ASDIRECTED LEONARDA Last Admin: 03/03/17 22:04 Dose: 100 ml Lactated Ringer's (Ringers, Lactated) 1,000 mls @ 100 mls/hr IV ASDIRECTED LEONARDA Last Admin: 03/03/17 22:24 Dose: 100 mls/hr Oxytocin/Lactated Ringer's (Pitocin In Lr 10 Units/1,000 Ml) 10 unit in 1,000 mls @ 12 mls/hr IV TITRATE LEONARDA; 2 MUNITS/MIN PRN Reason: Protocol Last Titration: 03/03/17 21:44 Dose: 0 munits/min, 0 mls/hr Oxytocin/Lactated Ringer's (Pitocin In Lr 10 Units/1,000 Ml) 10 unit in 1,000 mls @ 500 mls/hr IV TITRATE LEONARDA PRN Reason: Protocol Ondansetron HCl (Zofran) 4 mg IVPUSH ONETIME PRN PRN Reason: Nausea/Vomiting Sodium Chloride (Saline Flush) 10 ml FLUSH ASDIRECTED PRN PRN Reason: Keep Vein Open *Q Meaningful Use (DIS) - VTE *Q VTE Criteria *Q: - Stroke *Q Stroke Criteria *Q: - AMI *Q AMI Criteria *Q:
== END 2017-03-06 12:00 | disposition home or self-care (01) | DRG 560 ==
LOC: JD.OB 02:00 → OBSVTOIN 03-04 02:00
PROVIDERS: ADMIT Obstetrics & Gynecology; ATTEND Obstetrics & Gynecology
PROC: 10E0XZZ Delivery of Products of Conception, External Approach (ICD-10-PCS; principal; 2017-03-04)
PROC: 0HQ9XZZ Repair Perineum Skin, External Approach (ICD-10-PCS; 2017-03-04)
PROC: 3E0P3VZ Introduction of Hormone into Female Reproductive, Percutaneous Approach (ICD-10-PCS; 2017-03-04)
PROC: 10907ZC Drainage of Amniotic Fluid, Therapeutic from Products of Conception, Via Natural or Artificial Opening (ICD-10-PCS; 2017-03-04)
PROC: 00HU33Z Insertion of Infusion Device into Spinal Canal, Percutaneous Approach (ICD-10-PCS; 2017-03-04)
PROC: 3E0R3BZ Introduction of Anesthetic Agent into Spinal Canal, Percutaneous Approach (ICD-10-PCS; 2017-03-04)
DX: O36.5930 Maternal care for other known or suspected poor fetal growth, third trimester, not applicable or unspecified (principal); Z3A.38 38 weeks gestation of pregnancy; Z37.0 Single live birth; O70.0 First degree perineal laceration during delivery
CPT/HCPCS: 36415; 51702; 59409; 85025; 85027; 86850; 86900; 86901; A9270-GY; J2590; J3010; J7120

== ENCOUNTER 2018-10-29 09:38 | Emergency (ER) | payer OTHER ==
[2018-10-29 09:49] VITALS: BP 114/95
[2018-10-29] MEDS ORDERED: Sodium Chloride 0.9% 10 ML Syringe FLUSH PRN (10:09)
[2018-10-29] MEDS ORDERED: cefTRIAXone 1 GM in Sodium Chloride 0.9% 100 ML IV ONE (10:12)
--- NOTE | 2018-10-29 11:13 | EDM.PDOC ---
ED HPI GENERAL MEDICAL PROBLEM - General Chief Complaint: Lower Extremity Injury/Pain Stated Complaint: FOOT INFECTION Time Seen by Provider: 10/29/18 09:57 Source of Information: Reports: Patient, RN Notes Reviewed - History of Present Illness INITIAL COMMENTS - FREE TEXT/NARRATIVE: 28-year-old female comes in with possible foot infection. She states she had a wart taken off of her toe several days ago at the clinic. She started noticing some redness of the tissue dorsal aspect of left second toe spreading to surrounding area of her distal foot yesterday. She was evaluated at the walk-in clinic, started on cephalexin 500 mg 4 times daily. The area of redness has expanded to a larger area of the distal dorsal foot. No fever or chills. No drainage from the area of wart removal. She is about 8 weeks . - Related Data Allergies Allergy/AdvReac Type Severity Reaction Status Date / Time No Known Allergies Allergy Verified 03/03/17 19:34 Home Meds: Home Meds Pnv No.122/Iron/Folic Acid [ Multi Tablet] 1 each PO DAILY 01/17/17 [ History] Acetaminophen [Tylenol] 650 mg PO Q6H PRN tablet 03/06/17 [Rx] Cephalexin [Keflex] 500 mg PO BID 10/29/18 [History] Doxylamine/Pyridoxine HCl [Diclegis Dr 10-10 mg Tablet] 1 each PO DAILY [History] Progesterone,Micronized [Endometrin] 100 mg VG BID 10/29/18 [History] Sulfamethoxazole/Trimethoprim [Bactrim Ds Tablet] 1 each PO BID #14 tablet 10/29 [Rx] Past Medical History - Past Health History Medical/Surgical History: Denies Medical/Surgical History HEENT History: Reports: Impaired Vision Other HEENT History: wears contacts. Cardiovascular History: Reports: Other (See Below) Other Cardiovascular History: pt has fluctuation of heart rate and rhythms from SR_ST_SVT. States had previous symptoms checked "nothing ever became of it.". Pt has had no reoccurances or complications. Respiratory History: Reports: None Gastrointestinal History: Reports: Irritable Bowel Syndrome Genitourinary History: Reports: UTI, Recurrent, Other (See Below) Other Genitourinary History: Pt has not had a UTI in "quite some time." SECURITY GUARD History: Reports: , Other (See Below) Other SECURITY GUARD History: states had had infertility, was started on meds to induce periods and Clomid for ovulation. Pt currently on 10/29/18. Musculoskeletal History: Reports: None Neurological History: Reports: None Psychiatric History: Reports: Anxiety Other Psychiatric History: insomnia Endocrine/Metabolic History: Reports: None Hematologic History: Reports: None Immunologic History: Reports: None Oncologic (Cancer) History: Reports: None Dermatologic History: Reports: None - Infectious Disease History Infectious Disease History: Reports: Other (See Below) Other Infectious Disease History: C-diff Cleared- had a long time ago - Past Surgical History HEENT Surgical History: Reports: Oral Surgery Other HEENT Surgeries/Procedures: [place] Teeth 2015 Social & Family History - Family History Family Medical History: Noncontributory Cardiac: Reports: CAD, High Cholesterol - Tobacco Use Smoking Status *Q: Never Smoker - Caffeine Use Caffeine Use: Reports: None - Recreational Drug Use Recreational Drug Use: No Review of Systems - Review of Systems Review Of Systems: See Below Constitutional: Denies: Chills, Fever Eyes: Reports: No Symptoms Mouth/Throat: Reports: No Symptoms Respiratory: Denies: Shortness of Breath, Pleuritic Chest Pain Cardiovascular: Denies: Chest Pain GI/Abdominal: Denies: Abdominal Pain, Nausea, Vomiting Musculoskeletal: Reports: Foot Pain Skin: Reports: Erythema. Denies: Rash Neurological: Reports: No Symptoms ED EXAM, GENERAL - Physical Exam Exam: See Below Exam Limited By: Uncooperative General Appearance: Alert, No Apparent Distress Head: Atraumatic Neck: Supple Respiratory/Chest: No Respiratory Distress Extremities: Other (Area of wart removal volar base left second toe visible. The tissue is quite dark apparently secondary to "acid treatment after surgical removal end of wart and curettage" there is no drainage at this time. The toe itself is not swollen. Her is very mild inflammation dorsal base of toe with surrounding mild erythema adjacent distal dorsal aspect of foot. Skin is relatively warm over that area. No unusual tenderness. No visible swelling.) Neurological: Alert, No Motor/Sensory Deficits Skin Exam: Warm, Dry Course - Vital Signs Last Recorded V/S: Last Vital Signs Temp 98 F 10/29/18 09:46 Pulse 97 10/29/18 09:46 Resp 16 10/29/18 09:46 BP 114/95 H 10/29/18 09:46 Pulse Ox 100 10/29/18 09:46 - Orders/Labs/Meds Orders: Active Orders 24 hr Category Date Time Status Peripheral IV Care [RC] . DIRECTED Care 10/29/18 10:10 Active Sodium Chloride 0.9% [Saline Flush] Med 10/29/18 10:09 Active 10 ml FLUSH ASDIRECTED PRN Peripheral IV Insertion Adult [OM.PC] Stat Oth 10/29/18 10:10 Ordered Medication Orders Sodium Chloride (Saline Flush) 10 ml FLUSH ASDIRECTED PRN PRN Reason: Keep Vein Open Last Admin: 10/29/18 10:11 Dose: 10 ml Labs: Laboratory Tests 10/29/18 Range/Units 10:15 WBC 7.75 (3.98-10.04) K/mm3 RBC 4.40 (3.98-5.22) M/mm3 Hgb 13.6 (11.2-15.7) gm/L Hct 40.2 (34.1-44.9) % MCV 91.4 (79.4-94.8) fl MCH 30.9 (25.6-32.2) pg MCHC 33.8 (32.2-35.5) g/dl RDW Std Deviation 41.8 (36.4-46.3) fL Plt Count 239 (182-369) K/mm3 MPV 9.8 (9.4-12.3) fl Neut % (Auto) 65.7 (34.0-71.1) % Lymph % (Auto) 25.8 (19.3-51.7) % Bland % (Auto) 7.0 (4.7-12.5) % Eos % (Auto) 0.8 (0.7-5.8) Baso % (Auto) 0.4 (0.1-1.2) % Neut # (Auto) 5.10 (1.56-6.13) K/mm3 Lymph # (Auto) 2.00 (1.18-3.74) K/mm3 Bland # (Auto) 0.54 H (0.24-0.36) K/mm3 Eos # (Auto) 0.06 (0.04-0.36) K/mm3 Baso # (Auto) 0.03 (0.01-0.08) K/mm3 Meds: Medications Generic Name Dose Route Start Last Admin Trade Name Rocio PRN Reason Stop Dose Admin Sodium Chloride 10 ml 10/29/18 10:09 10/29/18 10:11 Saline Flush FLUSH 10 ml ASDIRECTED PRN Administration Keep Vein Open Discontinued Medications Generic Name Dose Route Start Last Admin Trade Name Rocio PRN Reason Stop Dose Admin Ceftriaxone Sodium 1 gm/ 100 mls @ 200 mls/hr 10/29/18 10:12 10/29/18 10:18 Sodium Chloride IV 10/29/18 10:41 200 mls/hr ONETIME ONE Administration - Re-Assessments/Exams Free Text/Narrative Re-Assessment/Exam: 10/29/18 11:30 White blood count did come back normal at 7700. Give Rocephin 1 g IV while awaiting lab work. There is no drainage to culture at this time. With her normal white blood count, findings of her foot relatively mild at this time will have her continue on the Keflex 500 mg 4 times daily as prescribed and also add Bactrim DS bid to expand coverage. Discharge instr. as documented. Departure - Departure Time of Disposition: 11:14 Disposition: Home, Self-Care 01 Condition: Fair Clinical Impression: Cellulitis Qualifiers: Site of cellulitis: extremity Site of cellulitis of extremity: lower extremity Laterality: left Qualified Code(s): L03.116 - Cellulitis of left lower limb - Discharge Information Prescriptions: Sulfamethoxazole/Trimethoprim [Bactrim Ds Tablet] 1 each PO BID #14 tablet Instructions: Cellulitis, Adult, [id number] Referrals: Aliyah Harris MD [Primary Care Provider] - Forms: ED Department Discharge Additional Instructions: Continue the cephalexin antibiotic 500 mg 4 times daily, begin Bactrim DS and take that one tablet twice daily, take 1 now as soon as you get the prescription filled and then the second dose for today at bedtime. Try see Dr. Hartmann Wednesday for follow-up, return to ED as needed if symptoms worsening in any way. - My Orders Last 24 Hours: My Active Orders 10/29/18 10:09 Sodium Chloride 0.9% [Saline Flush] 10 ml FLUSH ASDIRECTED PRN 10/29/18 10:10 Peripheral IV Care [RC] . DIRECTED Peripheral IV Insertion Adult [OM.PC] Stat - Assessment/Plan Last 24 Hours: My Active Orders 10/29/18 10:09 Sodium Chloride 0.9% [Saline Flush] 10 ml FLUSH ASDIRECTED PRN 10/29/18 10:10 Peripheral IV Care [RC] . DIRECTED Peripheral IV Insertion Adult [OM.PC] Stat
== END 2018-10-29 11:25 | disposition home or self-care (01) ==
LOC: JD.ED 09:38
DX: O99.711 Diseases of the skin and subcutaneous tissue complicating pregnancy, first trimester (principal); L03.116 Cellulitis of left lower limb; O99.341 Other mental disorders complicating pregnancy, first trimester; F41.9 Anxiety disorder, unspecified; Z79.899 Other long term (current) drug therapy
CPT/HCPCS: 36415; 85025; 96365; 99283; J0696; J7030

== ENCOUNTER 2019-06-04 16:20 | Inpatient (IN) | payer OTHER ==
[~2019-06-04 16:20] MED LIST: fentaNYL 100 MCG/2 ML SDV ONE
[2019-06-04] MEDS ORDERED: Magnesium Oxide 400 MG Tab PO ONE (16:50)
[2019-06-04] MEDS: Lactated Ringers 1,000 ML IV SCH ×3 (17:10→18:30)
[2019-06-04] MEDS ORDERED: Ondansetron 4 MG/2 ML SDV IVPUSH PRN (17:11)
[2019-06-04] MEDS ORDERED: Sodium Chloride 0.9% 10 ML Syringe FLUSH PRN (17:11)
[2019-06-04] MEDS ORDERED: Nalbuphine 10 MG/ML Syringe IVPUSH PRN (17:11)
[2019-06-04] MEDS ORDERED: Sodium Chloride 0.9% 10 ML SDV IV PRN (17:11)
[2019-06-04] MEDS ORDERED: Potassium Chloride 10 MEQ Tab.ER PO ONE (17:15)
[2019-06-04] MEDS ORDERED: Oxytocin/Lactated Ringers 20 UNIT/1,000 ML BAG IV SCH (17:15)
[2019-06-04] MEDS ORDERED: fentaNYL 100 MCG/2 ML SDV EPIDUR PRN (17:27)
[2019-06-04] MEDS ORDERED: diphenhydrAMINE 50 MG/ML SDV IVPUSH PRN (17:27)
[2019-06-04] MEDS ORDERED: fentaNYL/Bupivacaine/NS 2 MCG-0.125% 250 ML EPIDUR PRN (17:27)
[2019-06-04] MEDS ORDERED: ePHEDrine 50 MG/ML SDV IVPUSH PRN (17:27)
--- NOTE | 2019-06-04 17:37 | PCM.HP.2 ---
<Fidencio Mcnamara - Last Filed: 06/04/19 17:23> H&P History of Present Illness - General Date of Service: 06/04/19 Admit Problem/Dx: Admission Diagnosis/Problem Admission Diagnosis/Problem Source of Information: Patient History Limitations: Reports: No Limitations - History of Present Illness Initial Comments - Free Text/Narative: Ms. Loida Martinez is a pleasant 28 yo F (girl, uncomplicated , 3yo) who presents to L&D having consistent contractions. NUNU is Jun 11, [address] Strong for care. Ms Martinez first presented to L&D this morning endorsing symptoms of having "a stomach bug" first beginning last night at 2300 on 06/03/2019. She Presented having symptoms of N/V/D and wanted to make sure things were ok. She also reports having cramping mostly localized to her pelvis around a 4/10 for a pain rating. She denies having any intake - food or drink 2/2 to the nausea she was experiencing. Was rx'ed some zofran PO at home, her last dose taken at 1230. With induction scheduled for 06/05/2019 at 0700, plan per Dr. Sanchez was for her to eat some banana's / drink fruit juice and plan is to see her in the AM for her scheduled induction with instructions to report back to L&D with other symptoms. She Contractions every 4 min starting around 1500. She admits with the contractions having pain in the front, back and sometimes radiating down into her legs. At this point she present back to L&D. pt reports her pain a 9/10 and having contractions every 4 min. Membranes remain intact. Pt interested in epidural. Pt denies any hx of hypertension or asthma. She endorses testing and being Group B strep: (-) Currently taking Doxylamine throughout whole for nausea. Labs this morning (06/04/2019) include: WBC: 13.12 RBC: 4.43 Hgb: 13.6 Hct: 40.1 Na: 140 K: 3.2 CO2: 21 Cr: 0.7 M.5 ABO/Rh: A+ - Related Data Allergies/Adverse Reactions: Allergies Allergy/AdvReac Type Severity Reaction Status Date / Time No Known Allergies Allergy Verified 06/04/19 07:47 Home Medications: Home Meds No122/Iron/Folic Acid [ Multi Tablet] 1 each PO DAILY 01/17/17 [History] Doxylamine/Pyridoxine HCl [Diclegis Dr 10-10 mg Tablet] 1 each PO DAILY [History] Ferrous Sulfate [Iron] 325 mg PO DAILY 06/04/19 [History] Past Medical History - Past Health History Medical/Surgical History: Denies Medical/Surgical History HEENT History: Reports: Impaired Vision Other HEENT History: wears contacts. Cardiovascular History: Reports: Other (See Below) Other Cardiovascular History: pt has fluctuation of heart rate and rhythms from SR_ST_SVT. States had previous symptoms checked "nothing ever became of it.". Pt has had no reoccurances or complications. Respiratory History: Reports: None Gastrointestinal History: Reports: Irritable Bowel Syndrome Genitourinary History: Reports: UTI, Recurrent, Other (See Below) Other Genitourinary History: Pt has not had a UTI in "quite some time." PHARMACOEPIDEMIOLOGIST History: Reports: , Other (See Below) Other OB/BYN History: states had had infertility, was started on meds to induce periods and Clomid for ovulation. Pt currently on 10/29/18. Musculoskeletal History: Reports: None Neurological History: Reports: None Psychiatric History: Reports: Anxiety Other Psychiatric History: insomnia Endocrine/Metabolic History: Reports: None Hematologic History: Reports: None Immunologic History: Reports: None Oncologic (Cancer) History: Reports: None Dermatologic History: Reports: None - Infectious Disease History Infectious Disease History: Reports: Other (See Below) Other Infectious Disease History: C-diff Cleared- had a long time ago - Past Surgical History HEENT Surgical History: Reports: Oral Surgery Other HEENT Surgeries/Procedures: [place] Teeth 2014 Social & Family History - Family History Family Medical History: Noncontributory Cardiac: Reports: CAD, High Cholesterol - Caffeine Use Caffeine Use: Reports: None H&P Review of Systems - Review of Systems: Review Of Systems: See Below General: Reports: No Symptoms HEENT: Reports: No Symptoms, Glasses, Headaches (reports this morning ) Pulmonary: Reports: No Symptoms Cardiovascular: Reports: No Symptoms Gastrointestinal: Reports: Diarrhea (this morning), Nausea (this morning), Vomiting (this morning) Genitourinary: Reports: No Symptoms Musculoskeletal: Reports: No Symptoms Skin: Reports: No Symptoms Psychiatric: Reports: No Symptoms Neurological: Reports: No Symptoms Hematologic/Lymphatic: Reports: No Symptoms Exam - Exam Exam: See Below - Vital Signs Weight: 177 lb - Exam General: Alert, Oriented, Mild Distress (rates her pain 9/10 with the contractions) HEENT: Conjunctiva Clear, EOMI, Hearing Intact, Pupils Equal, Pupils Reactive Neck: Supple, Trachea Midline Lungs: Clear to Auscultation, Normal Respiratory Effort Cardiovascular: Regular Rate, Regular Rhythm (no M, R, G), Normal S1, Normal S2 , Tachycardia Extremities: Normal Inspection, No Pedal Edema Skin: Warm, Dry, Intact, Other (denies rashes, sores, lesions) Neuro Extensive - Mental Status: Alert, Oriented x3, Normal Mood/Affect, Normal Cognition Psychiatric: Alert, Normal Affect, Normal Mood Problem List Initiated/Reviewed/Updated: No Orders Last 24hrs: Active Orders 24 hr Category Date Time Status Patient Status [ADT] Routine ADT 06/04/19 17:11 Active Activity as Tolerated [RC] PFP Care 06/04/19 17:11 Active Communication Order [RC] ASDIRECTED Care 06/04/19 17:11 Active Heart Tones [RC] ASDIRECTED Care 06/04/19 17:12 Active Non Stress Test [RC] PER UNIT ROUTINE Care 06/04/19 17:11 Active Notify Provider [RC] PFP Care 06/04/19 17:11 Active Notify Provider [RC] PRN Care 06/04/19 17:11 Active Peripheral IV Care [RC] . DIRECTED Care 06/04/19 17:12 Active Pump Management, Intrathecal [RC] ASDIRECTED Care 06/04/19 17:13 Active Urinary Catheter Assessment [RC] ASDIRECTED Care 06/04/19 17:11 Active Vital Signs [RC] PER UNIT ROUTINE Care 06/04/19 17:11 Active Regular Diet [DIET] Diet 06/04/19 Dinner Active RAPID PLASMA REAGIN,RPR [CHEM] Routine Lab 06/04/19 08:19 Received TYPE AND SCREEN [BBK] Stat Lab 06/04/19 08:19 Received Lactated Ringers [Ringers, Lactated] 1,000 ml Med 06/04/19 17:15 Active IV ASDIRECTED Nalbuphine [Nubain] Med 06/04/19 17:11 Active 10 mg IVPUSH Q2H PRN Ondansetron [Zofran] Med 06/04/19 17:11 Active 4 mg IVPUSH Q4H PRN Oxytocin/Lactated Ringers [Pitocin in LR 20 Units/1,000 Med 06/04/19 17:15 Active ML] 20 unit in 1,000 ml IV .CONTINUOUS Sodium Chloride 0.9% [Normal Saline] Med 06/04/19 17:11 Active 10 ml IV ASDIRECTED PRN Sodium Chloride 0.9% [Saline Flush] Med 06/04/19 17:11 Active 10 ml FLUSH ASDIRECTED PRN Electronic Heart Tones Ext w TOCO [WOMSER] Oth 06/04/19 17:11 Ordered Routine Electronic Heart Tones Internal [WOMSER] Per Unit Ot 06/04/19 17:11 Ordered Routine Peripheral IV Insertion Adult [OM.PC] Routine Ot 06/04/19 17:11 Ordered Resuscitation Status Routine Resus Stat 06/04/19 17:11 Ordered Medication Orders Lactated Ringer's (Ringers, Lactated) 1,000 mls @ 100 mls/hr IV ASDIRECTED LEONARDA Oxytocin/Lactated Ringer's (Pitocin In Lr 20 Units/1,000 Ml) 20 unit in 1,000 mls @ 500 mls/hr IV .CONTINUOUS LEONARDA Nalbuphine HCl (Nubain) 10 mg IVPUSH Q2H PRN PRN Reason: Pain Ondansetron HCl (Zofran) 4 mg IVPUSH Q4H PRN PRN Reason: Nausea/Vomiting Sodium Chloride (Saline Flush) 10 ml FLUSH ASDIRECTED PRN PRN Reason: Keep Vein Open Sodium Chloride (Normal Saline) 10 ml IV ASDIRECTED PRN PRN Reason: Pain Assessment/Plan Comment:: Labor and Delivery Epidural placed - Mortality Measure Prognosis:: Good <Bethel Sanchez - Last Filed: 06/04/19 18:12> H&P History of Present Illness - General Admit Problem/Dx: Admission Diagnosis/Problem Admission Diagnosis/Problem Source of Information: Patient History Limitations: Reports: No Limitations - History of Present Illness Symptom Onset Date: 06/04/19 Improves with: Reports: None Worsens with: Reports: None H&P Review of Systems - Review of Systems: General: Reports: No Symptoms HEENT: Reports: No Symptoms, Glasses, Headaches Pulmonary: Reports: No Symptoms Cardiovascular: Reports: No Symptoms Gastrointestinal: Reports: Diarrhea, Nausea, Vomiting Genitourinary: Reports: No Symptoms Musculoskeletal: Reports: No Symptoms Skin: Reports: No Symptoms Psychiatric: Reports: No Symptoms Neurological: Reports: No Symptoms Hematologic/Lymphatic: Reports: No Symptoms Exam - Vital Signs Vital Signs: Last Vital Signs Temp 97.6 F 06/04/19 17:11 Pulse 107 H 06/04/19 17:11 Resp 16 06/04/19 17:11 BP 132/80 06/04/19 17:11 Pulse Ox - Exam General: Alert, Oriented, Mild Distress HEENT: Conjunctiva Clear, EOMI, Hearing Intact, Pupils Equal, Pupils Reactive Neck: Supple, Trachea Midline Lungs: Clear to Auscultation, Normal Respiratory Effort Cardiovascular: Regular Rate, Regular Rhythm, Normal S1, Normal S2, Tachycardia GI/Abdominal Exam: Normal Bowel Sounds, Soft Extremities: Normal Inspection, Non-Tender, No Pedal Edema, Normal Capillary Refill Skin: Warm, Dry, Intact, Other Neuro Extensive - Mental Status: Alert, Oriented x3, Normal Mood/Affect, Normal Cognition Psychiatric: Alert, Normal Affect, Normal Mood Sepsis Event Note - Focused Exam Vital Signs: Vital Signs Temp Pulse Resp BP 06/04/19 17:11 97.6 F 107 H 16 132/80 Date Exam was Performed: 06/04/19 Time Exam was Performed: 18:08 - Problem List (1) 39 weeks gestation of SNOMED Code(s): 39671858 ICD Code: Z3A.39 - 39 WEEKS GESTATION OF Status: Acute Current Visit: Yes Problem List Initiated/Reviewed/Updated: No Orders Last 24hrs: Active Orders 24 hr Category Date Time Status Patient Status [ADT] Routine ADT 06/04/19 17:11 Active Activity as Tolerated [RC] PFP Care 06/04/19 17:11 Active Communication Order [RC] ASDIRECTED Care 06/04/19 17:11 Active Heart Tones [RC] ASDIRECTED Care 06/04/19 17:12 Active Non Stress Test [RC] PER UNIT ROUTINE Care 06/04/19 17:11 Active Notify Provider [RC] ASDIRECTED Care 06/04/19 17:27 Active Notify Provider [RC] PFP Care 06/04/19 17:11 Active Notify Provider [RC] PRN Care 06/04/19 17:11 Active Peripheral IV Care [RC] . DIRECTED Care 06/04/19 17:12 Active Pump Management, Intrathecal [RC] ASDIRECTED Care 06/04/19 17:13 Active Urinary Catheter Assessment [RC] ASDIRECTED Care 06/04/19 17:11 Active Vital Signs [RC] PER UNIT ROUTINE Care 06/04/19 17:11 Active Regular Diet [DIET] Diet 06/04/19 Dinner Active RAPID PLASMA REAGIN,RPR [CHEM] Routine Lab 06/04/19 08:19 Received TYPE AND SCREEN [BBK] Stat Lab 06/04/19 08:19 Received Bupivicaine/fentaNYL/NS [fentaNYL/Bupivacaine/NS 2 MCG- Med 06/04/19 17:27 Active 0.125% 250 ML] 250 ml EPIDUR CONTINUOUS PRN Lactated Ringers [Ringers, Lactated] 1,000 ml Med 06/04/19 17:15 Active IV ASDIRECTED Nalbuphine [Nubain] Med 06/04/19 17:11 Active 10 mg IVPUSH Q2H PRN Ondansetron [Zofran] Med 06/04/19 17:11 Active 4 mg IVPUSH Q4H PRN Oxytocin/Lactated Ringers [Pitocin in LR 20 Units/1,000 Med 06/04/19 17:15 Active ML] 20 unit in 1,000 ml IV .CONTINUOUS Sodium Chloride 0.9% [Normal Saline] Med 06/04/19 17:11 Active 10 ml IV ASDIRECTED PRN Sodium Chloride 0.9% [Saline Flush] Med 06/04/19 17:11 Active 10 ml FLUSH ASDIRECTED PRN diphenhydrAMINE [Benadryl] Med 06/04/19 17:27 Active 25 mg IVPUSH Q6H PRN ePHEDrine [ePHEDrine sulfate] Med 06/04/19 17:27 Active 5 mg IVPUSH ASDIRECTED PRN fentaNYL [Sublimaze] Med 06/04/19 17:27 Active 100 mcg EPIDUR Q3H PRN Electronic Heart Tones Ext w TOCO [WOMSER] Oth 06/04/19 17:11 Ordered Routine Electronic Heart Tones Internal [WOMSER] Per Unit Oth 06/04/19 17:11 Ordered Routine Peripheral IV Insertion Adult [OM.PC] Routine Oth 06/04/19 17:11 Ordered Resuscitation Status Routine Resus Stat 06/04/19 17:11 Ordered Medication Orders Diphenhydramine HCl (Benadryl) 25 mg IVPUSH Q6H PRN PRN Reason: pruritis Ephedrine Sulfate (Ephedrine Sulfate) 5 mg IVPUSH ASDIRECTED PRN PRN Reason: Hypotension Fentanyl (Sublimaze) 100 mcg EPIDUR Q3H PRN PRN Reason: Pain Last Admin: 06/04/19 17:58 Dose: 100 mcg Fentanyl/Bupivacaine HCl (Fentanyl/Bupivacaine/Ns 2 Mcg-0.125% 250 Ml) 250 ml EPIDUR CONTINUOUS PRN PRN Reason: Pain Last Admin: 06/04/19 17:59 Dose: 250 ml Lactated Ringer's (Ringers, Lactated) 1,000 mls @ 100 mls/hr IV ASDIRECTED LEONARDA Last Admin: 06/04/19 17:31 Dose: 999 mls/hr Infusion: 06/04/19 17:31 Dose: 999 mls/hr Admin: 06/04/19 17:10 Dose: 999 mls/hr Oxytocin/Lactated Ringer's (Pitocin In Lr 20 Units/1,000 Ml) 20 unit in 1,000 mls @ 500 mls/hr IV .CONTINUOUS LEONARDA Nalbuphine HCl (Nubain) 10 mg IVPUSH Q2H PRN PRN Reason: Pain Ondansetron HCl (Zofran) 4 mg IVPUSH Q4H PRN PRN Reason: Nausea/Vomiting Last Admin: 06/04/19 17:31 Dose: 4 mg Sodium Chloride (Saline Flush) 10 ml FLUSH ASDIRECTED PRN PRN Reason: Keep Vein Open Sodium Chloride (Normal Saline) 10 ml IV ASDIRECTED PRN PRN Reason: Pain Assessment/Plan Comment:: Patient seen and examined by me and discussed with student.
--- NOTE | 2019-06-04 18:06 | PCM.SN ---
- Free Text/Narrative Note: at 0803 cervix 6 cm, 100 % effaced, soft, mid-position, vertex -1. Cat I FHR. Good relief with epidural. Amniotomy clear fluid at 0813.
--- NOTE | 2019-06-04 18:54 | PCM.SN ---
- Free Text/Narrative Note: Exam at 1850 cervix 8 cm, 100% effaced, soft, anterior, vertex 0 station. Cat I FHR. Good relief with epidural
--- NOTE | 2019-06-04 20:27 | PCM.PREANE ---
Preanesthetic Assessment - Procedure Proposed Procedure: Continuous Labor Epidural - Anesthesia/Transfusion/Family Hx Anesthesia History: Prior Anesthesia Without Reaction Transfusion History: No Prior Transfusion(s) Intubation History: Unknown - Review of Systems General: No Symptoms Pulmonary: No Symptoms Cardiovascular: No Symptoms Gastrointestinal: No Symptoms Neurological: No Symptoms Other: Reports: None - Physical Assessment NPO Status Date: 06/04/19 (full stomach) Vital Signs: Last Vital Signs Temp 36.4 C 06/04/19 17:11 Pulse 117 H 06/04/19 19:30 Resp 16 06/04/19 17:11 BP 120/72 06/04/19 19:30 Pulse Ox Height: 5 ft 2 in Weight: 80.286 kg ASA Class: 1 Mental Status: Alert & Oriented x3 Airway Class: Mallampati = 2 Dentition: Reports: Normal Dentition ROM/Head Extension: Full Lungs: Clear to Auscultation, Normal Respiratory Effort Cardiovascular: Regular Rate, Regular Rhythm - Lab Values: Laboratory Last Values Blood Type A POSITIVE 06/04/19 08:19 Gel Antibody Screen Negative 06/04/19 08:19 - Allergies Allergies/Adverse Reactions: Allergies Allergy/AdvReac Type Severity Reaction Status Date / Time No Known Allergies Allergy Verified 06/04/19 07:47 - Acknowledgements Anesthesia Type Planned: Epidural Pt an Appropriate Candidate for the Planned Anesthesia: Yes Alternatives and Risks of Anesthesia Discussed w Pt/Guardian: Yes Pt/Guardian Understands and Agrees with Anesthesia Plan: Yes PreAnesthesia Questionnaire - Past Health History Medical/Surgical History: Denies Medical/Surgical History HEENT History: Reports: Impaired Vision Other HEENT History: wears contacts. Cardiovascular History: Reports: Other (See Below) Other Cardiovascular History: pt has fluctuation of heart rate and rhythms from [id number]. States had previous symptoms checked "nothing ever became of it.". Pt has had no reoccurances or complications. 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 Pt currently on 10/29/18. Musculoskeletal History: Reports: None Neurological History: Reports: None Psychiatric History: Reports: Anxiety Other Psychiatric History: insomnia Endocrine/Metabolic History: Reports: None Hematologic History: Reports: None Immunologic History: Reports: None Oncologic (Cancer) History: Reports: None Dermatologic History: Reports: None - Infectious Disease History Infectious Disease History: Reports: Other (See Below) Other Infectious Disease History: C-diff Cleared- had a long time ago - Past Surgical History HEENT Surgical History: Reports: Oral Surgery Other HEENT Surgeries/Procedures: [place] Teeth 2014 - SUBSTANCE USE Smoking Status *Q: Never Smoker Second Hand Smoke Exposure: No Recreational Drug Use History: No - HOME MEDS Home Medications: Home Meds No122/Iron/Folic Acid [ Multi Tablet] 1 each PO DAILY 01/17/17 [History] Doxylamine/Pyridoxine HCl [Diclegis Dr 10-10 mg Tablet] 1 each PO DAILY [History] Ferrous Sulfate [Iron] 325 mg PO DAILY 06/04/19 [History] - CURRENT (IN HOUSE) MEDS Current Meds: Current Medications Diphenhydramine HCl (Benadryl) 25 mg IVPUSH Q6H PRN PRN Reason: pruritis Ephedrine Sulfate (Ephedrine Sulfate) 5 mg IVPUSH ASDIRECTED PRN PRN Reason: Hypotension Fentanyl (Sublimaze) 100 mcg EPIDUR Q3H PRN PRN Reason: Pain Last Admin: 06/04/19 17:58 Dose: 100 mcg Fentanyl/Bupivacaine HCl (Fentanyl/Bupivacaine/Ns 2 Mcg-0.125% 250 Ml) 250 ml EPIDUR CONTINUOUS PRN PRN Reason: Pain Last Admin: 06/04/19 17:59 Dose: 250 ml Lactated Ringer's (Ringers, Lactated) 1,000 mls @ 100 mls/hr IV ASDIRECTED LEONARDA Last Admin: 06/04/19 18:30 Dose: 100 mls/hr Oxytocin/Lactated Ringer's (Pitocin In Lr 20 Units/1,000 Ml) 20 unit in 1,000 mls @ 500 mls/hr IV .CONTINUOUS LEONARDA Nalbuphine HCl (Nubain) 10 mg IVPUSH Q2H PRN PRN Reason: Pain Ondansetron HCl (Zofran) 4 mg IVPUSH Q4H PRN PRN Reason: Nausea/Vomiting Last Admin: 06/04/19 17:31 Dose: 4 mg Sodium Chloride (Saline Flush) 10 ml FLUSH ASDIRECTED PRN PRN Reason: Keep Vein Open Sodium Chloride (Normal Saline) 10 ml IV ASDIRECTED PRN PRN Reason: Pain Discontinued Medications Magnesium Oxide (Magnesium Oxide) 400 mg PO ONETIME ONE Stop: 06/04/19 16:51 Last Admin: 06/04/19 17:32 Dose: 400 mg Potassium Chloride (Klor-Con 10) 10 meq PO ONETIME ONE Stop: 06/04/19 17:16 Last Admin: 06/04/19 17:32 Dose: 10 meq
--- NOTE | 2019-06-04 20:40 | PCM.DEL ---
L & D Note - General Info Date of Service: 06/04/19 Mother's Due Date: 06/11/19 - Delivery Note Labor: Spontaneous, Augmented by ARM Delivery Outcome: Livebirth (Female liveborn Wednesday06/04/20192020 hr NATAN under epidural over no episiotomy or laceration APGARs 8/9 weight 3120 g/6#14.1 oz) Delivery Method: Spontaneous Vaginal Delivery-Single Delivery Mode: Spontaneous Presentation: Left Occiput Anterior (NATAN) Nuchal Cord: None Prep: Povidone-Iodine (Betadine Anesthesia Type: Epidural Amniotic Fluid Description: Clear Episiotomy Type: None Laceration: None Placenta: Intact, Spontaneous (Wednesday06/04/20192024 hrs intact eccentric cord insertion ) Cord: 3 Vessels Estimated Blood Loss: 250 Resuscitation Needed: No : Suctioned, Bulb Syringe, Stimulated, Warmed, [place] Used, Warmer Used Provider: Bethel Sanchez Score 1 min: 8 Score 5 min: 9 - General Info Date of Service: 06/04/19 Functional Status: Reports: Pain Controlled - Review of Systems General: Reports: No Symptoms HEENT: Reports: No Symptoms Pulmonary: Reports: No Symptoms Cardiovascular: Reports: No Symptoms Gastrointestinal: Reports: No Symptoms Genitourinary: Reports: No Symptoms Musculoskeletal: Reports: No Symptoms Skin: Reports: No Symptoms Neurological: Reports: No Symptoms Psychiatric: Reports: No Symptoms - Patient Data Vitals - Most Recent: Last Vital Signs Temp 97.6 F 06/04/19 17:11 Pulse 117 H 06/04/19 19:30 Resp 16 06/04/19 17:11 BP 120/72 06/04/19 19:30 Pulse Ox Weight - Most Recent: 177 lb I&O - Last 24 Hours: Intake & Output 06/04/19 06/04/19 06/04/19 06:59 14:59 22:59 Intake Total 2150 Balance 2150 Lab Results Last 24 Hours: Laboratory Results - last 24 hr 06/04/19 Range/Units 08:19 Blood Type A POSITIVE Gel Antibody Screen Negative Med Orders - Current: Current Medications Diphenhydramine HCl (Benadryl) 25 mg IVPUSH Q6H PRN PRN Reason: pruritis Ephedrine Sulfate (Ephedrine Sulfate) 5 mg IVPUSH ASDIRECTED PRN PRN Reason: Hypotension Fentanyl (Sublimaze) 100 mcg EPIDUR Q3H PRN PRN Reason: Pain Last Admin: 06/04/19 17:58 Dose: 100 mcg Fentanyl/Bupivacaine HCl (Fentanyl/Bupivacaine/Ns 2 Mcg-0.125% 250 Ml) 250 ml EPIDUR CONTINUOUS PRN PRN Reason: Pain Last Admin: 06/04/19 17:59 Dose: 250 ml Lactated Ringer's (Ringers, Lactated) 1,000 mls @ 100 mls/hr IV ASDIRECTED LEONARDA Last Admin: 06/04/19 18:30 Dose: 100 mls/hr Oxytocin/Lactated Ringer's (Pitocin In Lr 20 Units/1,000 Ml) 20 unit in 1,000 mls @ 500 mls/hr IV .CONTINUOUS LEONARDA Last Admin: 06/04/19 20:27 Dose: 500 mls/hr Nalbuphine HCl (Nubain) 10 mg IVPUSH Q2H PRN PRN Reason: Pain Ondansetron HCl (Zofran) 4 mg IVPUSH Q4H PRN PRN Reason: Nausea/Vomiting Last Admin: 06/04/19 17:31 Dose: 4 mg Sodium Chloride (Saline Flush) 10 ml FLUSH ASDIRECTED PRN PRN Reason: Keep Vein Open Sodium Chloride (Normal Saline) 10 ml IV ASDIRECTED PRN PRN Reason: Pain Discontinued Medications Magnesium Oxide (Magnesium Oxide) 400 mg PO ONETIME ONE Stop: 06/04/19 16:51 Last Admin: 06/04/19 17:32 Dose: 400 mg Potassium Chloride (Klor-Con 10) 10 meq PO ONETIME ONE Stop: 06/04/19 17:16 Last Admin: 06/04/19 17:32 Dose: 10 meq - Exam General: Alert, Oriented Extremities: Normal Inspection, Non-Tender, No Pedal Edema, Normal Capillary Refill Skin: Warm, Dry, Intact Psy/Mental Status: Alert, Normal Affect, Normal Mood - Problem List & Annotations (1) 39 weeks gestation of SNOMED Code(s): 89706117 Code(s): Z3A.39 - 39 WEEKS GESTATION OF Status: Acute Current Visit: Yes (2) Encounter for full-term uncomplicated delivery SNOMED Code(s): 942886841 Code(s): O80 - ENCOUNTER FOR FULL-TERM UNCOMPLICATED DELIVERY Status: Acute Current Visit: Yes - Problem List Review Problem List Initiated/Reviewed/Updated: No - My Orders Last 24 Hours: My Active Orders 06/04/19 08:19 RAPID PLASMA REAGIN,RPR [CHEM] Routine 06/04/19 17:11 Patient Status [ADT] Routine Activity as Tolerated [RC] PFP Communication Order [RC] ASDIRECTED Non Stress Test [RC] PER UNIT ROUTINE Notify Provider [RC] PFP Notify Provider [RC] PRN Urinary Catheter Assessment [RC] ASDIRECTED Vital Signs [RC] PER UNIT ROUTINE Nalbuphine [Nubain] 10 mg IVPUSH Q2H PRN Ondansetron [Zofran] 4 mg IVPUSH Q4H PRN Sodium Chloride 0.9% [Normal Saline] 10 ml IV ASDIRECTED PRN Sodium Chloride 0.9% [Saline Flush] 10 ml FLUSH ASDIRECTED PRN Electronic Heart Tones Ext w TOCO [WOMSER] Routine Electronic Heart Tones Internal [WOMSER] Per Unit Routine Peripheral IV Insertion Adult [OM.PC] Routine Resuscitation Status Routine 06/04/19 17:12 Heart Tones [RC] ASDIRECTED Peripheral IV Care [RC] . DIRECTED 06/04/19 17:13 Pump Management, Intrathecal [RC] ASDIRECTED 06/04/19 17:15 Lactated Ringers [Ringers, Lactated] 1,000 ml IV ASDIRECTED Oxytocin/Lactated Ringers [Pitocin in LR 20 Units/1,000 ML] 20 unit in 1,000 ml IV .CONTINUOUS 06/04/19 Dinner Regular Diet [DIET] - Plan Plan:: Patient seen and examined by me and discussed with student.
[2019-06-04] MEDS ORDERED: Acetaminophen 325 MG Tab PO PRN (21:06)
[2019-06-04] MEDS ORDERED: Docusate Sodium 100 MG Cap PO PRN (21:06)
[2019-06-04] MEDS ORDERED: Benzocaine/Menthol 20%-0.5% Spray 56 GM Canister TOP PRN (21:06)
[2019-06-04] MEDS ORDERED: Witch Hazel Medicated Pads 40/Jar TOP PRN (21:06)
[2019-06-04] MEDS: Ondansetron 4 MG Tab.DIS PO PRN (22:03)
[2019-06-04] MEDS: Potassium Chloride 10 MEQ Tab.ER PO SCH (22:03)
[2019-06-04] MEDS: Magnesium Oxide 400 MG Tab PO SCH (22:03)
[2019-06-05] MEDS: Ibuprofen 600 MG Tab PO PRN ×3 (01:44→16:42)
[2019-06-05] MEDS: Ondansetron 4 MG Tab.DIS PO PRN ×2 (07:58→20:32)
[2019-06-05] MEDS: Magnesium Oxide 400 MG Tab PO SCH (07:59)
[2019-06-05] MEDS: Potassium Chloride 10 MEQ Tab.ER PO SCH (07:59)
--- NOTE | 2019-06-05 08:25 | PCM.SN ---
- Free Text/Narrative Note: Afebrile. No heavy vaginal bleeding. Uterus involuting normally. No leg cramping. Patient's potassium is still low but higher than yesterday we'll continue the testing tablets twice a day. And magnesium tablets twice a day. Tomorrow morning CMP and magnesium level ordered.
--- NOTE | 2019-06-05 10:23 | PCM48HPAN ---
Post Anesthesia Note - EVALUATION WITHIN 48HRS OF ANESTHETIC Vital Signs in Normal Range: Yes Patient Participated in Evaluation: Yes Respiratory Function Stable: Yes Airway Patent: Yes Cardiovascular Function Stable: Yes Hydration Status Stable: Yes Pain Control Satisfactory: Yes Nausea and Vomiting Control Satisfactory: Yes Mental Status Recovered: Yes Vital Signs: Last Vital Signs Temp 36.7 C 06/05/19 08:02 Pulse 82 06/05/19 08:02 Resp 14 06/05/19 08:02 BP 121/67 06/05/19 08:02 Pulse Ox 97 06/05/19 08:02
[2019-06-06] MEDS: Ondansetron 4 MG Tab.DIS PO PRN (06:14)
[2019-06-06] MEDS: Potassium Chloride 10 MEQ Tab.ER PO SCH ×2 (06:29→08:14)
[2019-06-06] MEDS: Magnesium Oxide 400 MG Tab PO SCH ×2 (06:29→08:14)
--- NOTE | 2019-06-06 07:55 | PCM.DCSUM1 ---
Discharge Summary - Hospital Course Free Text/Narrative:: [facility] LIVE L/D Delivery Note Patient Name: MARIAH JAMISON Date of : 89 Patient Status: Inpatient Attending Provider: Bethel Sanchez Date: 06/04/19 20:35 Initialization Date: 06/04/19 20:35 L & D Note - General Info Date of Service: 06/04/19 Mother's Due Date: 06/11/19 - Delivery Note Labor: Spontaneous, Augmented by ARM Delivery Outcome: Livebirth (Female liveborn Wednesday06/04/20192020 hr NATAN under epidural over no episiotomy or laceration APGARs 8/9 weight 3120 g/6#14.1 oz) Infant Delivery Method: Spontaneous Vaginal Delivery-Single Delivery Mode: Spontaneous Presentation: Left Occiput Anterior (NATAN) Nuchal Cord: None Prep: Povidone-Iodine (Betadine Anesthesia Type: Epidural Amniotic Fluid Description: Clear Episiotomy Type: None Laceration: None Placenta: Intact, Spontaneous (Wednesday06/04/20192024 hrs intact eccentric cord insertion ) Cord: 3 Vessels Estimated Blood Loss: 250 Resuscitation Needed: No : Suctioned, Bulb Syringe, Stimulated, Warmed, Neligh Used, Warmer Used Provider: Bethel Sanchez Score 1 min: 8 Score 5 min: 9 - General Info Date of Service: 06/04/19 Functional Status: Reports: Pain Controlled - Review of Systems General: Reports: No Symptoms HEENT: Reports: No Symptoms Pulmonary: Reports: No Symptoms Cardiovascular: Reports: No Symptoms Gastrointestinal: Reports: No Symptoms Genitourinary: Reports: No Symptoms Musculoskeletal: Reports: No Symptoms Skin: Reports: No Symptoms Neurological: Reports: No Symptoms Psychiatric: Reports: No Symptoms - Patient Data Vitals - Most Recent: Last Vital Signs Temp 97.6 F 06/04/19 17:11 Pulse 117 H 06/04/19 19:30 Resp 16 06/04/19 17:11 BP 120/72 06/04/19 19:30 Pulse Ox Weight - Most Recent: 177 lb I&O - Last 24 Hours: Intake & Output 06/04/19 06/04/19 06/04/19 06:59 14:59 22:59 Intake Total 2150 Balance 2150 Lab Results Last 24 Hours: Laboratory Results - last 24 hr 06/04/19 Range/Units 08:19 Blood Type A POSITIVE Gel Antibody Screen Negative Med Orders - Current: Current Medications Diphenhydramine HCl (Benadryl) 25 mg IVPUSH Q6H PRN PRN Reason: pruritis Ephedrine Sulfate (Ephedrine Sulfate) 5 mg IVPUSH ASDIRECTED PRN PRN Reason: Hypotension Fentanyl (Sublimaze) 100 mcg EPIDUR Q3H PRN PRN Reason: Pain Last Admin: 06/04/19 17:58 Dose: 100 mcg Fentanyl/Bupivacaine HCl (Fentanyl/Bupivacaine/Ns 2 Mcg-0.125% 250 Ml) 250 ml EPIDUR CONTINUOUS PRN PRN Reason: Pain Last Admin: 06/04/19 17:59 Dose: 250 ml Lactated Ringer's (Ringers, Lactated) 1,000 mls @ 100 mls/hr IV ASDIRECTED LEONARDA Last Admin: 06/04/19 18:30 Dose: 100 mls/hr Oxytocin/Lactated Ringer's (Pitocin In Lr 20 Units/1,000 Ml) 20 unit in 1,000 mls @ 500 mls/hr IV .CONTINUOUS LEONARDA Last Admin: 06/04/19 20:27 Dose: 500 mls/hr Nalbuphine HCl (Nubain) 10 mg IVPUSH Q2H PRN PRN Reason: Pain Ondansetron HCl (Zofran) 4 mg IVPUSH Q4H PRN PRN Reason: Nausea/Vomiting Last Admin: 06/04/19 17:31 Dose: 4 mg Sodium Chloride (Saline Flush) 10 ml FLUSH ASDIRECTED PRN PRN Reason: Keep Vein Open Sodium Chloride (Normal Saline) 10 ml IV ASDIRECTED PRN PRN Reason: Pain Discontinued Medications Magnesium Oxide (Magnesium Oxide) 400 mg PO ONETIME ONE Stop: 06/04/19 16:51 Last Admin: 06/04/19 17:32 Dose: 400 mg Potassium Chloride (Klor-Con 10) 10 meq PO ONETIME ONE Stop: 06/04/19 17:16 Last Admin: 06/04/19 17:32 Dose: 10 meq - Exam General: Alert, Oriented Extremities: Normal Inspection, Non-Tender, No Pedal Edema, Normal Capillary Refill Skin: Warm, Dry, Intact Psy/Mental Status: Alert, Normal Affect, Normal Mood - Problem List & Annotations (1) 39 weeks gestation of SNOMED Code(s): 19266971 Code(s): Z3A.39 - 39 WEEKS GESTATION OF Status: Acute Current Visit: Yes (2) Encounter for full-term uncomplicated delivery SNOMED Code(s): 752842762 Code(s): O80 - ENCOUNTER FOR FULL-TERM UNCOMPLICATED DELIVERY Status: Acute Current Visit: Yes - Problem List Review Problem List Initiated/Reviewed/Updated: No - My Orders Last 24 Hours: My Active Orders 06/04/19 08:19 RAPID PLASMA REAGIN,RPR [CHEM] Routine 06/04/19 17:11 Patient Status [ADT] Routine Activity as Tolerated [RC] PFP Communication Order [RC] ASDIRECTED Non Stress Test [RC] PER UNIT ROUTINE Notify Provider [RC] PFP Notify Provider [RC] PRN Urinary Catheter Assessment [RC] ASDIRECTED Vital Signs [RC] PER UNIT ROUTINE Nalbuphine [Nubain] 10 mg IVPUSH Q2H PRN Ondansetron [Zofran] 4 mg IVPUSH Q4H PRN Sodium Chloride 0.9% [Normal Saline] 10 ml IV ASDIRECTED PRN Sodium Chloride 0.9% [Saline Flush] 10 ml FLUSH ASDIRECTED PRN Electronic Heart Tones Ext w TOCO [WOMSER] Routine Electronic Heart Tones Internal [WOMSER] Per Unit Routine Peripheral IV Insertion Adult [OM.PC] Routine Resuscitation Status Routine 06/04/19 17:12 Heart Tones [RC] ASDIRECTED Peripheral IV Care [RC] . DIRECTED 06/04/19 17:13 Pump Management, Intrathecal [RC] ASDIRECTED 06/04/19 17:15 Lactated Ringers [Ringers, Lactated] 1,000 ml IV ASDIRECTED Oxytocin/Lactated Ringers [Pitocin in LR 20 Units/1,000 ML] 20 unit in 1,000 ml IV .CONTINUOUS 06/04/19 Dinner Regular Diet [DIET] - Plan Plan:: Patient seen and examined by me and discussed with student. HPI Initial Comments: [facility] LIVE L/D Delivery Note Patient Name: MARIAH JAMISON Date of : 89 Patient Status: Inpatient Attending Provider: Bethel Sanchez Date: 06/04/19 20:35 Initialization Date: 06/04/19 20:35 L & D Note - General Info Date of Service: 06/04/19 Mother's Due Date: 06/11/19 - Delivery Note Labor: Spontaneous, Augmented by ARM Delivery Outcome: Livebirth (Female liveborn Wednesday06/04/20192020 hr NATAN under epidural over no episiotomy or laceration APGARs 8/9 weight 3120 g/6#14.1 oz) Delivery Method: Spontaneous Vaginal Delivery-Single Infant Delivery Mode: Spontaneous Presentation: Left Occiput Anterior (NATAN) Nuchal Cord: None Prep: Povidone-Iodine (Betadine Anesthesia Type: Epidural Amniotic Fluid Description: Clear Episiotomy Type: None Laceration: None Placenta: Intact, Spontaneous (Wednesday06/04/20192024 hrs intact eccentric cord insertion ) Cord: 3 Vessels Estimated Blood Loss: 250 Resuscitation Needed: No : Suctioned, Bulb Syringe, Stimulated, Warmed, Neligh Used, Warmer Used Provider: Bethel Sanchez Score 1 min: 8 Score 5 min: 9 - General Info Date of Service: 06/04/19 Functional Status: Reports: Pain Controlled - Review of Systems General: Reports: No Symptoms HEENT: Reports: No Symptoms Pulmonary: Reports: No Symptoms Cardiovascular: Reports: No Symptoms Gastrointestinal: Reports: No Symptoms Genitourinary: Reports: No Symptoms Musculoskeletal: Reports: No Symptoms Skin: Reports: No Symptoms Neurological: Reports: No Symptoms Psychiatric: Reports: No Symptoms - Patient Data Vitals - Most Recent: Last Vital Signs Temp 97.6 F 06/04/19 17:11 Pulse 117 H 06/04/19 19:30 Resp 16 06/04/19 17:11 BP 120/72 06/04/19 19:30 Pulse Ox Weight - Most Recent: 177 lb I&O - Last 24 Hours: Intake & Output 06/04/19 06/04/19 06/04/19 06:59 14:59 22:59 Intake Total 2150 Balance 2150 Lab Results Last 24 Hours: Laboratory Results - last 24 hr 01/12/20 Range/Units 08:19 Blood Type A POSITIVE Gel Antibody Screen Negative Med Orders - Current: Current Medications Diphenhydramine HCl (Benadryl) 25 mg IVPUSH Q6H PRN PRN Reason: pruritis Ephedrine Sulfate (Ephedrine Sulfate) 5 mg IVPUSH ASDIRECTED PRN PRN Reason: Hypotension Fentanyl (Sublimaze) 100 mcg EPIDUR Q3H PRN PRN Reason: Pain Last Admin: 06/04/19 17:58 Dose: 100 mcg Fentanyl/Bupivacaine HCl (Fentanyl/Bupivacaine/Ns 2 Mcg-0.125% 250 Ml) 250 ml EPIDUR CONTINUOUS PRN PRN Reason: Pain Last Admin: 06/04/19 17:59 Dose: 250 ml Lactated Ringer's (Ringers, Lactated) 1,000 mls @ 100 mls/hr IV ASDIRECTED LEONARDA Last Admin: 06/04/19 18:30 Dose: 100 mls/hr Oxytocin/Lactated Ringer's (Pitocin In Lr 20 Units/1,000 Ml) 20 unit in 1,000 mls @ 500 mls/hr IV .CONTINUOUS LEONARDA Last Admin: 06/04/19 20:27 Dose: 500 mls/hr Nalbuphine HCl (Nubain) 10 mg IVPUSH Q2H PRN PRN Reason: Pain Ondansetron HCl (Zofran) 4 mg IVPUSH Q4H PRN PRN Reason: Nausea/Vomiting Last Admin: 06/04/19 17:31 Dose: 4 mg Sodium Chloride (Saline Flush) 10 ml FLUSH ASDIRECTED PRN PRN Reason: Keep Vein Open Sodium Chloride (Normal Saline) 10 ml IV ASDIRECTED PRN PRN Reason: Pain Discontinued Medications Magnesium Oxide (Magnesium Oxide) 400 mg PO ONETIME ONE Stop: 06/04/19 16:51 Last Admin: 06/04/19 17:32 Dose: 400 mg Potassium Chloride (Klor-Con 10) 10 meq PO ONETIME ONE Stop: 06/04/19 17:16 Last Admin: 06/04/19 17:32 Dose: 10 meq - Exam General: Alert, Oriented Extremities: Normal Inspection, Non-Tender, No Pedal Edema, Normal Capillary Refill Skin: Warm, Dry, Intact Psy/Mental Status: Alert, Normal Affect, Normal Mood - Problem List & Annotations (1) 39 weeks gestation of SNOMED Code(s): 51024229 Code(s): Z3A.39 - 39 WEEKS GESTATION OF Status: Acute Current Visit: Yes (2) Encounter for full-term uncomplicated delivery SNOMED Code(s): 414101766 Code(s): O80 - ENCOUNTER FOR FULL-TERM UNCOMPLICATED DELIVERY Status: Acute Current Visit: Yes - Problem List Review Problem List Initiated/Reviewed/Updated: No - My Orders Last 24 Hours: My Active Orders 06/04/19 08:19 RAPID PLASMA REAGIN,RPR [CHEM] Routine 06/04/19 17:11 Patient Status [ADT] Routine Activity as Tolerated [RC] PFP Communication Order [RC] ASDIRECTED Non Stress Test [RC] PER UNIT ROUTINE Notify Provider [RC] PFP Notify Provider [RC] PRN Urinary Catheter Assessment [RC] ASDIRECTED Vital Signs [RC] PER UNIT ROUTINE Nalbuphine [Nubain] 10 mg IVPUSH Q2H PRN Ondansetron [Zofran] 4 mg IVPUSH Q4H PRN Sodium Chloride 0.9% [Normal Saline] 10 ml IV ASDIRECTED PRN Sodium Chloride 0.9% [Saline Flush] 10 ml FLUSH ASDIRECTED PRN Electronic Heart Tones Ext w TOCO [WOMSER] Routine Electronic Heart Tones Internal [WOMSER] Per Unit Routine Peripheral IV Insertion Adult [OM.PC] Routine Resuscitation Status Routine 06/04/19 17:12 Heart Tones [RC] ASDIRECTED Peripheral IV Care [RC] . DIRECTED 06/04/19 17:13 Pump Management, Intrathecal [RC] ASDIRECTED 06/04/19 17:15 Lactated Ringers [Ringers, Lactated] 1,000 ml IV ASDIRECTED Oxytocin/Lactated Ringers [Pitocin in LR 20 Units/1,000 ML] 20 unit in 1,000 ml IV .CONTINUOUS 06/04/19 Dinner Regular Diet [DIET] - Plan Plan:: Patient seen and examined by me and discussed with student. Brief History: [facility] LIVE . L/D Delivery Note. Patient Name: MARIAH JAMISONEMedical Record Number: [id number]. Date of : Patient Status: Inpatient. Attending Provider: Bethel Sanchez Number: [id number]. Date: 06/04/19 20:35Initialization Date: 06/04/19 20:35. L & D Note. - General Info. Date of Service: 06/04/19. Mother's Due Date: 06/11/19. - Delivery Note. Labor: Spontaneous, Augmented by ARM. Delivery Outcome: Livebirth (Female liveborn Wednesday06/04/20192020 hr NATAN under epidural over no episiotomy or laceration APGARs 8/9 weight 3120 g/6#14.1 oz). Delivery Method: Spontaneous Vaginal Delivery-Single. Delivery Mode: Spontaneous. Presentation: Left Occiput Anterior (NATAN). Nuchal Cord: None. Prep: Povidone-Iodine (Betadine. Anesthesia Type: Epidural. Amniotic Fluid Description: Clear. Episiotomy Type: None. Laceration: None. Placenta: Intact, Spontaneous (Wednesday06/04/20192024 hrs intact eccentric cord insertion ) . Cord: 3 Vessels. Estimated Blood Loss: 250. Resuscitation Needed: No. [place]: Suctioned, Bulb Syringe, Stimulated, Warmed, Neligh Used, Warmer Used. Provider: Bethel Sanchez. Score 1 min: 8. Score 5 min: 9. - General Info. Date of Service: 06/04/19. Functional Status : Reports: Pain Controlled. - Review of Systems. General: Reports: No Symptoms. HEENT: Reports: No Symptoms. Pulmonary: Reports: No Symptoms. Cardiovascular: Reports: No Symptoms. Gastrointestinal: Reports: No Symptoms. Genitourinary: Reports: No Symptoms. Musculoskeletal: Reports: No Symptoms. Skin: Reports: No Symptoms. Neurological: Reports: No Symptoms. Psychiatric: Reports: No Symptoms. - Patient Data. Vitals - Most Recent: Last Vital Signs. Temp 97.6 F 06/04/19 17:11. Pulse 117 H 06/04/19 19:30. Resp 16 05/12 17:11. BP 120/72 06/04/19 19:30. Pulse Ox. Weight - Most Recent: 177 lb. I&O - Last 24 Hours: Intake & Output. 06/04/2000/04/2001. 06:5914: 5922:59. Intake [id number]. [id number]. Lab Results Last 24 Hours: Laboratory Results - last 24 hr. 06/04/19Range/Units. 08:19. Blood Type A POSITIVE. Gel Antibody Screen Negative. Med Orders - Current: Current Medications. Diphenhydramine HCl (Benadryl) 25 mg IVPUSH Q6H PRN. PRN Reason : pruritis. Ephedrine Sulfate (Ephedrine Sulfate) 5 mg IVPUSH ASDIRECTED PRN. PRN Reason: Hypotension. Fentanyl (Sublimaze) 100 mcg EPIDUR Q3H PRN. PRN Reason: Pain. Last Admin: 06/04/19 17:58 Dose: 100 mcg. Fentanyl/Bupivacaine HCl (Fentanyl/Bupivacaine/Ns 2 Mcg-0.125% 250 Ml) 250 ml EPIDUR CONTINUOUS PRN. PRN Reason: Pain. Last Admin: 06/04/19 17:59 Dose: 250 ml. Lactated Ringer's (Ringers, Lactated) 1,000 mls @ 100 mls/hr IV ASDIRECTED LEONARDA. Last Admin: 06/04/19 18:30 Dose: 100 mls/hr. Oxytocin/Lactated Ringer's (Pitocin In Lr 20 Units/1,000 Ml) 20 unit in 1,000 mls @ 500 mls/hr IV .CONTINUOUS LEONARDA. Last Admin: 06/04/19 20:27 Dose: 500 mls/hr. Nalbuphine HCl (Nubain) 10 mg IVPUSH Q2H PRN. PRN Reason: Pain. Ondansetron HCl (Zofran) 4 mg IVPUSH Q4H PRN. PRN Reason: Nausea/Vomiting. Last Admin: 06/04/19 17:31 Dose: 4 mg. Sodium Chloride (Saline Flush) 10 ml FLUSH ASDIRECTED PRN. PRN Reason: Keep Vein Open. Sodium Chloride (Normal Saline) 10 ml IV ASDIRECTED PRN. PRN Reason: Pain. Discontinued Medications. Magnesium Oxide (Magnesium Oxide) 400 mg PO ONETIME ONE. Stop: 06/04/19 16:51. Last Admin: 06/04/19 17:32 Dose: 400 mg. Potassium Chloride (Klor-Con 10) 10 meq PO ONETIME ONE. Stop: 06/04 17:16. Last Admin: 06/04/19 17:32 Dose: 10 meq. - Exam. General: Alert, Oriented. Extremities: Normal Inspection, Non-Tender, No Pedal Edema, Normal Capillary Refill. Skin: Warm, Dry, Intact. Psy/Mental Status: Alert, Normal Affect, Normal Mood. - Problem List & Annotations. (1) 39 weeks gestation of . SNOMED Code(s): 51195566. Code(s): Z3A.39 - 39 WEEKS GESTATION OF Status: Acute Current Visit: Yes. (2) Encounter for full-term uncomplicated delivery. SNOMED Code(s): 816633671. Code(s): O80 - ENCOUNTER FOR FULL-TERM UNCOMPLICATED DELIVERY Status: Acute Current Visit: Yes. - Problem List Review. Problem List Initiated/Reviewed/Updated: No. - My Orders. Last 24 Hours: My Active Orders. 06/04/19 08:19. RAPID PLASMA REAGIN ,RPR [CHEM] Routine. 06/04/19 17:11. Patient Status [ADT] Routine. Activity as Tolerated [RC] PFP. Communication Order [RC] ASDIRECTED. Non Stress Test [RC] PER UNIT ROUTINE. Notify Provider [RC] PFP. Notify Provider [RC] PRN. Urinary Catheter Assessment [RC] ASDIRECTED. Vital Signs [RC] PER UNIT ROUTINE. Nalbuphine [Nubain] 10 mg IVPUSH Q2H PRN. Ondansetron [Zofran] 4 mg IVPUSH Q4H PRN. Sodium Chloride 0.9% [Normal Saline] 10 ml IV ASDIRECTED PRN. Sodium Chloride 0.9% [Saline Flush] 10 ml FLUSH ASDIRECTED PRN. Electronic Heart Tones Ext w TOCO [WOMSER] Routine. Electronic Heart Tones Internal [WOMSER] Per Unit Routine. Peripheral IV Insertion Adult [ OM.PC] Routine. Resuscitation Status Routine. 06/04/19 17:12. Heart Tones [RC] ASDIRECTED. Peripheral IV Care [RC] . DIRECTED. 06/04/19 17:13. Pump Management, Intrathecal [RC] ASDIRECTED. 06/04/19 17:15. Lactated Ringers [Ringers, Lactated] 1,000 ml IV ASDIRECTED. Oxytocin/Lactated Ringers [ Pitocin in LR 20 Units/1,000 ML] 20 unit in 1,000 ml IV .CONTINUOUS. 06/04/19 Dinner. Regular Diet [DIET]. - Plan. Plan:: Patient seen and examined by me and discussed with student. Diagnosis: Stroke: No - Discharge Data Discharge Date: 06/06/19 Discharge Disposition: Home, Self-Care 01 Condition: Good - Referral to Home Health Primary Care Physician: Ascencion Strong MD - Discharge Diagnosis/Problem(s) (1) 39 weeks gestation of SNOMED Code(s): 09170668 ICD Code: Z3A.39 - 39 WEEKS GESTATION OF Status: Acute Current Visit: Yes (2) Encounter for full-term uncomplicated delivery SNOMED Code(s): 217928466 ICD Code: O80 - ENCOUNTER FOR FULL-TERM UNCOMPLICATED DELIVERY Status: Acute Current Visit: Yes - Patient Summary/Data Complications: none Consults: none Hospital Course: uneventful - Patient Instructions Diet: Usual Diet as Tolerated Driving: Do Not Drive (x48 hrs) Showering/Bathing: May Shower Notify Provider of: Fever, Increased Pain, Swelling and Redness, Drainage, Nausea and/or Vomiting - Discharge Plan *PRESCRIPTION DRUG MONITORING PROGRAM REVIEWED*: Not Applicable *COPY OF PRESCRIPTION DRUG MONITORING REPORT IN PATIENT LEONEL: Not Applicable Prescriptions/Med Rec: Escitalopram Oxalate [Lexapro] 20 mg PO DAILY #30 tablet Home Medications: Home Meds No122/Iron/Folic Acid [ Multi Tablet] 1 each PO DAILY 01/17/17 [History] Ferrous Sulfate [Iron] 325 mg PO DAILY 06/04/19 [History] Acetaminophen [Tylenol] 650 mg PO Q6H PRN tablet 06/06/19 [Rx] Benzocaine/Menthol [Dermoplast Pain Relief [place]] 1 spray TOP ASDIRECTED PRN canister 06/06/19 [Rx] Docusate Sodium [Colace] 100 mg PO BID PRN cap 06/06/19 [Rx] Escitalopram Oxalate [Lexapro] 20 mg PO DAILY #30 tablet 06/06/19 [Rx] Ibuprofen [Motrin] 600 mg PO Q6H PRN tablet 06/06/19 [Rx] Referrals: Ascencion Strong MD [Primary Care Provider] - (Patient will call today before dismissal to make appointment to see Dr. Strong in 2-3 weeks) - Discharge Summary/Plan Comment DC Time >30 min.: No Discharge Summary/Plan Comment: EPDS 11/20 patient has taken Lexapro in the past will scribe 20 mg tablets take one half tablet by mouth daily for 8 days and then 1 tablet daily thereafter dispense 30 refills 5 - Patient Data Vitals - Most Recent: Last Vital Signs Temp 97.0 F 06/06/19 03:10 Pulse 59 L 06/06/19 03:10 Resp 16 06/06/19 03:10 BP 120/72 06/06/19 03:10 Pulse Ox 98 06/06/19 03:10 Weight - Most Recent: 177 lb I&O - Last 24 hours: Intake & Output 06/05/19 06/06/19 06/06/19 22:59 06:59 14:59 Intake Total 120 Balance 120 Lab Results - Last 24 hrs: Laboratory Results - last 24 hr 06/06/19 Range/Units 05:16 Sodium 142 (136-145) mEq/L Potassium 3.6 (3.5-5.1) mEq/L Chloride 107 (98-107) mEq/L Carbon Dioxide 25 (21-32) mEq/L Anion Gap 13.6 (5-15) BUN 9 (7-18) mg/dL Creatinine 0.8 (0.55-1.02) mg/dL Est Cr Clr Drug Dosing 83.54 mL/min Estimated GFR (MDRD) > 60 (>60) mL/min BUN/Creatinine Ratio 11.3 L (14-18) Glucose 77 (74-106) mg/dL Calcium 8.6 (8.5-10.1) mg/dL Total Bilirubin 0.2 (0.2-1.0) mg/dL AST 27 (15-37) U/L ALT 20 (14-59) U/L Alkaline Phosphatase 116 (46-116) U/L Total Protein 5.4 L (6.4-8.2) g/dl Albumin 2.2 L (3.4-5.0) g/dl Globulin 3.2 gm/dL Albumin/Globulin Ratio 0.7 L (1-2) Med Orders - Current: Current Medications Acetaminophen (Tylenol) 650 mg PO Q4H PRN PRN Reason: mild pain or fever Benzocaine/Menthol (Dermoplast Pain Relief [place]) 0 gm TOP ASDIRECTED PRN PRN Reason: Perineal Comfort Measure Docusate Sodium (Colace) 100 mg PO BID PRN PRN Reason: Constipation Ibuprofen (Motrin) 600 mg PO Q4H PRN PRN Reason: Mild pain or fever Last Admin: 06/05/19 16:42 Dose: 600 mg Magnesium Oxide (Magnesium Oxide) 400 mg PO BID [facility] Last Admin: 06/06/19 06:29 Dose: Not Given Ondansetron HCl (Zofran Odt) 4 mg PO Q6H PRN PRN Reason: Nausea/Vomiting Last Admin: 06/06/19 06:14 Dose: 4 mg Potassium Chloride (Klor-Con 10) 10 meq PO BID [facility] Last Admin: 06/06/19 06:29 Dose: Not Given Witch Braina (Tucks) 1 pad TOP ASDIRECTED PRN PRN Reason: Perineal Comfort Measure Discontinued Medications Diphenhydramine HCl (Benadryl) 25 mg IVPUSH Q6H PRN PRN Reason: pruritis Ephedrine Sulfate (Ephedrine Sulfate) 5 mg IVPUSH ASDIRECTED PRN PRN Reason: Hypotension Fentanyl (Sublimaze) 100 mcg EPIDUR Q3H PRN PRN Reason: Pain Last Admin: 06/04/19 17:58 Dose: 100 mcg Fentanyl (Sublimaze) 100 mcg .ROUTE .STK-MED ONE Stop: 06/04/19 00:01 Fentanyl/Bupivacaine HCl (Fentanyl/Bupivacaine/Ns 2 Mcg-0.125% 250 Ml) 250 ml EPIDUR CONTINUOUS PRN PRN Reason: Pain Last Admin: 06/04/19 17:59 Dose: 250 ml Lactated Ringer's (Ringers, Lactated) 1,000 mls @ 100 mls/hr IV ASDIRECTED [facility] Last Admin: 06/04/19 18:30 Dose: 100 mls/hr Oxytocin/Lactated Ringer's (Pitocin In Lr 20 Units/1,000 Ml) 20 unit in 1,000 mls @ 500 mls/hr IV .CONTINUOUS [facility] Last Admin: 06/04/19 20:27 Dose: 500 mls/hr Magnesium Oxide (Magnesium Oxide) 400 mg PO ONETIME ONE Stop: 06/04/19 16:51 Last Admin: 06/04/19 17:32 Dose: 400 mg Nalbuphine HCl (Nubain) 10 mg IVPUSH Q2H PRN PRN Reason: Pain Ondansetron HCl (Zofran) 4 mg IVPUSH Q4H PRN PRN Reason: Nausea/Vomiting Last Admin: 06/04/19 17:31 Dose: 4 mg Potassium Chloride (Klor-Con 10) 10 meq PO ONETIME ONE Stop: 06/04/19 17:16 Last Admin: 06/04/19 17:32 Dose: 10 meq Sodium Chloride (Saline Flush) 10 ml FLUSH ASDIRECTED PRN PRN Reason: Keep Vein Open Sodium Chloride (Normal Saline) 10 ml IV ASDIRECTED PRN PRN Reason: Pain
[2019-06-06 08:10] VITALS: BP 125/77; PULSE 71
== END 2019-06-06 10:39 | disposition home or self-care (01) | DRG 807 ==
LOC: JD.OB 16:20 → OBSVTOIN 20:21 → JD.OB 20:21
PROVIDERS: ADMIT Obstetrics & Gynecology; ATTEND Obstetrics & Gynecology
PROC: 10907ZC Drainage of Amniotic Fluid, Therapeutic from Products of Conception, Via Natural or Artificial Opening (ICD-10-PCS; principal; 2019-06-04)
PROC: 10E0XZZ Delivery of Products of Conception, External Approach (ICD-10-PCS; 2019-06-04)
PROC: 3E0R3BZ Introduction of Anesthetic Agent into Spinal Canal, Percutaneous Approach (ICD-10-PCS; 2019-06-04)
DX: O99.344 Other mental disorders complicating childbirth (principal); F41.9 Anxiety disorder, unspecified; Z37.0 Single live birth; Z79.899 Other long term (current) drug therapy; Z3A.39 39 weeks gestation of pregnancy
CPT/HCPCS: 01967; 36415; 51701; 59025; 59409; 80053; 85025; 86592; 86850; 86900; 86901; A9270-GY; J2405; J2590; J3010; J7120

== ENCOUNTER 2019-06-11 02:29 | Emergency (ER) | payer OTHER ==
[2019-06-11 02:59] VITALS: BP 127/105; PULSE 74
[2019-06-11] MEDS ORDERED: Lactated Ringers 1,000 ML IV ONE (03:25)
--- NOTE | 2019-06-11 03:28 | EDM.PDOC ---
ED HPI GENERAL MEDICAL PROBLEM - General Chief Complaint: General Stated Complaint: WEAK & DEHYDRATED Time Seen by Provider: 06/11/19 03:03 Source of Information: Reports: Patient, Family (Mother) History Limitations: Reports: No Limitations - History of Present Illness INITIAL COMMENTS - FREE TEXT/NARRATIVE: Mrs. Martinez is a pleasant 28-year-old woman with a past medical history significant for anxiety, insomnia, and irritable bowel syndrome, who underwent a vaginal delivery of a baby girl under epidural anesthesia 1 week ago today, on 06/04/2019. She is now G2, P2. She now presents to the ED stating that she has had 1 week of nausea, vomiting, watery diarrhea, decreased appetite and oral intake, insomnia, increased anxiety, and feeling weak and dehydrated. She has been feeling lightheaded when she stands up for the past 4 days. No recent fever. No recent cough or dyspnea. No urinary symptoms. The patient states that she was started on Lexapro on 06/06/2019, and that she takes Xanax 0.25 mg on an as-needed basis. She states that she has taken 3 tablets so far. She has also been taking some leftover Zofran, with her most recent dose around midnight, but she states that the Zofran does not seem to be helping with her nausea. She has not taken any [id number] antidiarrheal medications. The patient states that her 2-year-old daughter has similar vomiting and diarrhea. The patient denies recent antibiotics. No recent travel. She does not recall eating any bad tasting or smelling food prior to the development of her vomiting and diarrhea. Here in the ED, the patient is found to be hemodynamically stable, saturating 94 % on room air. The patient's PCP is Dr. Aliyah Bryant. Her REEL HOOKER is Dr. Ascencion Strong. She received an influenza vaccine this season. - Related Data Allergies Allergy/AdvReac Type Severity Reaction Status Date / Time No Known Allergies Allergy Verified 06/11/19 02:59 Home Meds: Home Meds No122/Iron/Folic Acid [ Multi Tablet] 1 each PO DAILY 01/17/17 [History] Escitalopram Oxalate [Lexapro] 20 mg PO DAILY #30 tablet 06/06/19 [Rx] ALPRAZolam [Xanax] 0.25 mg PO QID PRN 06/11/19 [History] Ondansetron [Zofran ODT] 1 tab PO Q8H PRN #10 tab.dis 06/11/19 [Rx] Past Medical History HEENT History: Reports: Impaired Vision Other HEENT History: wears contacts Gastrointestinal History: Reports: Irritable Bowel Syndrome REEL HOOKER History: Reports: : 2 Para: 2 Psychiatric History: Reports: Anxiety, Other (See Below) (Insomnia) - Infectious Disease History Infectious Disease History: Reports: C-Difficile - Past Surgical History HEENT Surgical History: Reports: Oral Surgery (wisdom teeth extraction 2014) Social & Family History - Family History Family Medical History: Noncontributory Cardiac: Reports: CAD, High Cholesterol - Tobacco Use Smoking Status *Q: Never Smoker - Caffeine Use Caffeine Use: Reports: None - Alcohol Use Alcohol Use History: No - Recreational Drug Use Recreational Drug Use: No - Living Situation & Occupation Living situation: Reports: , with Spouse, with Family (2 kids) 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 ED EXAM, GENERAL - Physical Exam Exam: See Below Exam Limited By: No Limitations General Appearance: Alert, WD/WN, No Apparent Distress Eye Exam: Bilateral Eye: EOMI, Normal Inspection Ears: Normal External Exam, Hearing Grossly Normal Nose: Normal Inspection Throat/Mouth: Normal Inspection, Normal Lips, Normal Voice, No Airway Compromise Head: Atraumatic, Normocephalic Neck: Normal Inspection, Full Range of Motion Respiratory/Chest: No Respiratory Distress, Lungs Clear, Normal Breath Sounds, No Accessory Muscle Use Cardiovascular: Normal Peripheral Pulses, Regular Rate, Rhythm, No Edema, No Gallop, No JVD, No Murmur, No Rub Peripheral Pulses: 4+: Radial (L), Radial (R) GI/Abdominal: Normal Bowel Sounds, Soft, Non-Tender, No Organomegaly, No Distention, No Abnormal Bruit, No Mass (Female) Exam: Deferred Rectal (Female) Exam: Deferred Back Exam: Normal Inspection, Full Range of Motion, NT Extremities: Normal Inspection, Normal Range of Motion, No Pedal Edema, Normal Capillary Refill Neurological: Alert, Oriented, Normal Cognition, No Motor/Sensory Deficits Psychiatric: Normal Affect Skin Exam: Warm, Dry, Intact, Normal Color, No Rash Course - Vital Signs Last Recorded V/S: Last Vital Signs Temp 36.2 C 06/11/19 02:54 Pulse 74 06/11/19 02:54 Resp 16 06/11/19 02:54 BP 127/105 H 06/11/19 02:54 Pulse Ox 94 L 06/11/19 02:54 Orthostatic Blood Pressure [ 114/87 Standing] Orthostatic Blood Pressure [ 129/95 Supine] - Orders/Labs/Meds Orders: Active Orders 24 hr Category Date Time Status Orthostatic Vital Signs [RC] ASDIRECTED Care 06/11/19 03:04 Active Orthostatic Vital Signs [RC] STAT Care 06/11/19 03:23 Active Labs: Laboratory Tests 06/11/19 06/11/19 06/11/19 Range/Units 03:40 03:40 03:40 WBC 9.52 (3.98-10.04) K/mm3 RBC 4.79 (3.98-5.22) M/mm3 Hgb 14.5 D (11.2-15.7) gm/dl Hct 43.4 (34.1-44.9) % MCV 90.6 (79.4-94.8) fl MCH 30.3 (25.6-32.2) pg MCHC 33.4 (32.2-35.5) g/dl RDW Std Deviation 42.3 (36.4-46.3) fL Plt Count 360 D (182-369) K/mm3 MPV 9.4 (9.4-12.3) fl Neutrophils % (Manual) 66 H (40-60) % Band Neutrophils % 0 (0-10) % Lymphocytes % (Manual) 30 (20-40) % Atypical Lymphs % 0 % Monocytes % (Manual) 3 (2-10) % Eosinophils % (Manual) 1 (0.7-5.8) % Basophils % (Manual) 0 L (0.1-1.2) Platelet Estimate Adequate RBC Morph Comment Normal Sodium 142 (136-145) mEq/L Potassium 3.1 L (3.5-5.1) mEq/L Chloride 105 (98-107) mEq/L Carbon Dioxide 21 (21-32) mEq/L Anion Gap 19.1 H (5-15) BUN 14 (7-18) mg/dL Creatinine 0.9 (0.55-1.02) mg/dL Est Cr Clr Drug Dosing TNP Estimated GFR (MDRD) > 60 (>60) mL/min BUN/Creatinine Ratio 15.6 (14-18) Glucose 95 (74-106) mg/dL Lactic Acid 0.6 (0.4-2.0) mmol/L Calcium 9.0 (8.5-10.1) mg/dL Magnesium 2.0 (1.8-2.4) mg/dl Total Bilirubin 0.5 (0.2-1.0) mg/dL AST 19 (15-37) U/L ALT 38 (14-59) U/L Alkaline Phosphatase 121 H (46-116) U/L Total Protein 7.2 (6.4-8.2) g/dl Albumin 3.2 L (3.4-5.0) g/dl Globulin 4.0 gm/dL Albumin/Globulin Ratio 0.8 L (1-2) TSH 3rd Generation 1.340 (0.358-3.74) uIU/mL Meds: Medications Discontinued Medications Generic Name Dose Route Start Last Admin Trade Name Freq PRN Reason Stop Dose Admin Lactated Ringer's 1,000 mls @ 999 mls/hr 06/11/19 03:25 06/11/19 03:44 Ringers, Lactated IV 06/11/19 04:25 999 mls/hr .BOLUS ONE Administration Lactated Ringer's 500 mls @ 999 mls/hr 06/11/19 05:08 06/11/19 05:21 Ringers, Lactated IV 06/11/19 05:38 999 mls/hr .BOLUS ONE Administration Lorazepam 0.5 mg 06/11/19 04:32 06/11/19 04:37 Ativan PO 06/11/19 04:33 0.5 mg ONETIME ONE Administration Potassium Chloride 40 meq 06/11/19 05:11 06/11/19 05:21 Klor-Con M20 PO 06/11/19 05:12 40 meq ONETIME ONE Administration - Re-Assessments/Exams Free Text/Narrative Re-Assessment/Exam: 06/11/19 03:26 Given the patient's history, the triage nurse check orthostatics, finding them to be positive. I have therefore ordered blood work to check for significant electrolyte shifts, and the patient will be treated with 1 L of LR. We will then recheck her orthostatics. 06/11/19 04:32 Notified by Sara JO that the patient is feeling quite anxious, and is requesting something to treat it. I have ordered Ativan 0.5 mg po. 06/11/19 05:12 The patient's CBC is unremarkable. Her CMP is remarkable for a potassium mildly depressed at 3.1, and an anion gap elevated at 19.1 with a bicarbonate normal at 21. The remainder of her CMP is unremarkable. Her magnesium level is within normal limits at 2.0. Her lactic acid level is within normal limits at 0.6. Her TSH level is within normal limits at 1.340. Following 1 L of LR, the patient is not technically orthostatic, but it is still close, therefore I have ordered an additional 500 mL bolus of LR, along with 40 mEq of oral KCl. 06/11/19 06:45 Test results discussed with the patient and her (now present; her mother has gone home). As above, the only abnormality that we found is modest hypokalemia, treated with oral potassium chloride. From a medical standpoint, I feel the patient is fit to go home. The patient inquired about medication for treatment of anxiety. I pointed out to her that her anxiety is a chronic issue, already being addressed by her PCP, treated with both Lexapro and Xanax. I do not feel it is appropriate for an Emergency Physician to step in the middle of that issue. She inquired about medications for insomnia, and I suggested Benadryl I pointed out that she is already on Xanax, although I cautioned against her using that on a regular basis. She inquired whether Ativan might be a better choice than Xanax, and I explained the difference between different benzodiazepines. She inquired about medication to improve her appetite. I informed her that there are medications on the market, such as dronabinol or megestrol, but that these are not medications usually prescribed by the emergency department, and I recommended that she follow-up with her PCP in that regard. She inquired if she could get a prescription for Zofran, since the Zofran that she has been taking is an old prescription, and she is nearly out. I will submit a prescription for Zofran for her. I would like her to follow-up with her PCP at the next available appointment. Departure - Departure Time of Disposition: 06:50 Disposition: Home, Self-Care 01 Condition: Good Clinical Impression: Gastroenteritis, Orthostasis, Anxiety - Discharge Information *PRESCRIPTION DRUG MONITORING PROGRAM REVIEWED*: Not Applicable *COPY OF PRESCRIPTION DRUG MONITORING REPORT IN PATIENT LEONEL: Not Applicable Prescriptions: Ondansetron [Zofran ODT] 1 tab PO Q8H PRN #10 tab.dis PRN Reason: Nausea/Vomiting Instructions: Viral Gastroenteritis, Adult, [id number] Referrals: Manny-Aliyah Mosquera MD [Primary Care Provider] - Ascencion Strong MD [Physician] - Forms: ED Department Discharge Additional Instructions: You were seen in the emergency room for nausea, vomiting, diarrhea, feeling weak and dehydrated, with increased anxiety. Workup in the ER included blood work and positional blood pressure checked. Your blood work revealed your potassium level to be low. You were given oral replacement potassium in the ER. Your blood pressure dropped excessively between lying and standing, a condition known as orthostasis. You were given 1.5 L of IV fluid in the ER, and your blood pressures normalized. A prescription for the anti-nausea medicine Zofran has been sent to the [facility], located just south and across the [address] from [facility]. The pharmacy will be open between noon and 4:00 PM today. Dissolve one tablet of Zofran on your tongue up to every 8 hours, as needed for nausea/vomiting. Stay adequately hydrated. Gatorade or Powerade are best. As discussed, we recommend that you follow-up with your PCP, Dr. Aliyah Bryant, at the next available appointment, to discuss your anxiety issue. You can also discuss medical treatment for a poor appetite, such as dronabinol or megestrol. Let the studio receptionist know that you are following up from the ER. If any other problems, please do not hesitate to return to the ER. Sepsis Event Note - Evaluation Sepsis Screening Result: No Definite Risk - Focused Exam Date Exam was Performed: 06/11/19 Time Exam was Performed: 18:35 - My Orders Last 24 Hours: My Active Orders 06/11/19 03:04 Orthostatic Vital Signs [RC] ASDIRECTED 06/11/19 03:23 Orthostatic Vital Signs [RC] STAT - Assessment/Plan Last 24 Hours: My Active Orders 06/11/19 03:04 Orthostatic Vital Signs [RC] ASDIRECTED 06/11/19 03:23 Orthostatic Vital Signs [RC] STAT
[2019-06-11] MEDS ORDERED: LORazepam 0.5 MG Tab PO ONE (04:32)
[2019-06-11] MEDS ORDERED: Lactated Ringers 500 ML IV ONE (05:08)
[2019-06-11] MEDS ORDERED: Potassium Chloride 20 MEQ Tab.ER PO ONE (05:11)
== END 2019-06-11 07:27 | disposition home or self-care (01) ==
LOC: JD.ED 02:29
DX: K52.9 Noninfective gastroenteritis and colitis, unspecified (principal); F41.9 Anxiety disorder, unspecified; I95.1 Orthostatic hypotension; Z79.899 Other long term (current) drug therapy
CPT/HCPCS: 36415; 80053; 83605; 83735; 84443; 85007; 85027; 96360; 96361; 99284; A9270; J7120

== ENCOUNTER 2020-07-01 06:58 | Emergency (ER) | payer BC, OTHER ==
[2020-07-01 07:12] VITALS: BP 119/73; PULSE 62
--- NOTE | 2020-07-01 07:39 | EDM.PDOC ---
ED HPI GENERAL MEDICAL PROBLEM - General Chief Complaint: Cardiovascular Problem Stated Complaint: RAPID HEART RATE Time Seen by Provider: 07/01/20 07:31 - History of Present Illness INITIAL COMMENTS - FREE TEXT/NARRATIVE: 29-year-old female presents the emergency room with palpitations. Patient was asleep this morning and awoke to what she thought was a very rapid heart rate and she could see her heart pounding in her chest it was that prominent. This was not associated with any chest discomfort no appreciable shortness of breath. Patient really has not had problems significant in the past. However, did have an episode that was worked up and diagnosis was not discovered. The patient did notice some lightheadedness when she tried to stand up. Also she noted that she could not void when she went to the bathroom until this resolved. She was not having any pain anywhere. She tried of the Valsalva type maneuver and thinks maybe this helped a little bit. Patient has no family history of heart problems or dysrhythmias the patient herself has not had any problems with dysrhythmias no patient or family history of problems participating in sports. - Related Data Allergies Allergy/AdvReac Type Severity Reaction Status Date / Time No Known Allergies Allergy Verified 07/01/20 07:12 Home Meds: Home Meds No122/Iron/Folic Acid [ Multi Tablet] 1 each PO DAILY 01/17/17 [History] Escitalopram Oxalate [Lexapro] 20 mg PO DAILY #30 tablet 06/06/19 [Rx] Past Medical History - Past Health History Medical/Surgical History: Denies Medical/Surgical History HEENT History: Reports: Impaired Vision Other HEENT History: wears contacts Cardiovascular History: Reports: Other (See Below) Other Cardiovascular History: pt has fluctuation of heart rate and rhythms from [id number]. States had previous symptoms checked "nothing ever became of it.". Pt has had no reoccurances or complications. Respiratory History: Reports: None Gastrointestinal History: Reports: Irritable Bowel Syndrome Genitourinary History: Reports: UTI, Recurrent, Other (See Below) Other Genitourinary History: Pt has not had a UTI in "quite some time." SUPPLIER ENGINEER History: Reports: Other SUPPLIER ENGINEER History: states had had infertility, was started on meds to induce periods and Clomid for ovulation. Pt currently on 10/29/18. Musculoskeletal History: Reports: None Neurological History: Reports: None Psychiatric History: Reports: Anxiety Other Psychiatric History: insomnia Endocrine/Metabolic History: Reports: None Hematologic History: Reports: None Immunologic History: Reports: None Oncologic (Cancer) History: Reports: None Dermatologic History: Reports: None - Infectious Disease History Infectious Disease History: Reports: C-Difficile, Novel Coronavirus Other Infectious Disease History: C-diff Cleared- had a long time ago - Past Surgical History HEENT Surgical History: Reports: Oral Surgery Social & Family History - Family History Family Medical History: No Pertinent Family History Cardiac: Reports: CAD, High Cholesterol - Tobacco Use Tobacco Use Status *Q: Never Tobacco User - Caffeine Use Caffeine Use: Reports: None - Recreational Drug Use Recreational Drug Use: No - Living Situation & Occupation Living situation: Reports: , with Spouse, with Family (2 kids) 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 Denies: Chest Pain, Dyspnea on Exertion, Syncope Endocrine: Reports: No Symptoms GI/Abdominal: Reports: No Symptoms : Reports: No Symptoms ED EXAM, GENERAL - Physical Exam Exam: See Below Exam Limited By: No Limitations General Appearance: Alert, No Apparent Distress, Other (In a sinus rhythm rate in the mid 50s to low 60s) Head: Atraumatic, Normocephalic Neck: Normal Inspection, Supple, Non-Tender, Full Range of Motion, Other (Thyroid does not palpate abnormally). No: Lymphadenopathy (L), Lymphadenopathy (R) Respiratory/Chest: No Respiratory Distress, Lungs Clear, Normal Breath Sounds Cardiovascular: Regular Rate, Rhythm, No Edema, No Murmur GI/Abdominal: Normal Bowel Sounds, Soft, Non-Tender Back Exam: Normal Inspection. No: CVA Tenderness (L), CVA Tenderness (R) Extremities: No Pedal Edema #1 Interpretation EKG Date: 07/01/20 Rhythm: NSR [place]: Normal P-Wave: Present QRS: Normal ST-T: Normal QT: Normal WV/PQ Interval: Normal Comparison: NA - No Prior EKG EKG Interpretation Comments: Normal EKG Course - Vital Signs Last Recorded V/S: Last Vital Signs Temp 35.9 C L 07/01/20 07:10 Pulse 62 07/01/20 07:10 Resp 16 07/01/20 07:10 BP 119/73 07/01/20 07:10 Pulse Ox 100 07/01/20 07:10 - Orders/Labs/Meds Orders: Active Orders 24 hr Category Date Time Status EKG Documentation Completion [RC] STAT Care 07/01/20 07:32 Active Holter Monitor 48 Hours [RC] .PRN Care 07/01/20 09:34 Ordered Labs: Laboratory Tests 07/01/20 07/01/20 07/01/20 Range/Units 07:58 07:58 07:58 WBC 5.02 (3.98-10.04) K/mm3 RBC 4.96 (3.98-5.22) M/mm3 Hgb 14.9 (11.2-15.7) gm/dl Hct 46.1 H (34.1-44.9) % MCV 92.9 (79.4-94.8) fl MCH 30.0 (25.6-32.2) pg MCHC 32.3 (32.2-35.5) g/dl RDW Std Deviation 42.0 (36.4-46.3) fL Plt Count 252 D (182-369) K/mm3 MPV 9.6 (9.4-12.3) fl Neut % (Auto) 53.3 (34.0-71.1) % Lymph % (Auto) 37.3 (19.3-51.7) % [place] % (Auto) 7.0 (4.7-12.5) % Eos % (Auto) 2.0 (0.7-5.8) Baso % (Auto) 0.4 (0.1-1.2) % Neut # (Auto) 2.68 (1.56-6.13) K/mm3 Lymph # (Auto) 1.87 (1.18-3.74) K/mm3 [place] # (Auto) 0.35 (0.24-0.36) K/mm3 Eos # (Auto) 0.10 (0.04-0.36) K/mm3 Baso # (Auto) 0.02 (0.01-0.08) K/mm3 Sodium 143 (136-145) mEq/L Potassium 4.0 (3.5-5.1) mEq/L Chloride 103 (98-107) mEq/L Carbon Dioxide 28 (21-32) mEq/L Anion Gap 16.0 H (5-15) BUN 16 (7-18) mg/dL Creatinine 0.9 (0.55-1.02) mg/dL Est Cr Clr Drug Dosing 73.60 mL/min Estimated GFR (MDRD) > 60 (>60) mL/min BUN/Creatinine Ratio 17.8 (14-18) Glucose 89 (74-106) mg/dL Calcium 9.1 (8.5-10.1) mg/dL Magnesium 2.1 (1.8-2.4) mg/dl Total Bilirubin 0.4 (0.2-1.0) mg/dL AST 17 (15-37) U/L ALT 28 (14-59) U/L Alkaline Phosphatase 92 (46-116) U/L Troponin I < 0.017 (0.00-0.056) ng/mL Total Protein 7.7 (6.4-8.2) g/dl Albumin 4.1 (3.4-5.0) g/dl Globulin 3.6 gm/dL Albumin/Globulin Ratio 1.1 (1-2) TSH 3rd Generation (0.358-3.74) uIU/mL HCG, Qual Negative (NEGATIVE) 07/01/20 Range/Units 07:58 WBC (3.98-10.04) K/mm3 RBC (3.98-5.22) M/mm3 Hgb (11.2-15.7) gm/dl Hct (34.1-44.9) % MCV (79.4-94.8) fl MCH (25.6-32.2) pg MCHC (32.2-35.5) g/dl RDW Std Deviation (36.4-46.3) fL Plt Count (182-369) K/mm3 MPV (9.4-12.3) fl Neut % (Auto) (34.0-71.1) % Lymph % (Auto) (19.3-51.7) % [place] % (Auto) (4.7-12.5) % Eos % (Auto) (0.7-5.8) Baso % (Auto) (0.1-1.2) % Neut # (Auto) (1.56-6.13) K/mm3 Lymph # (Auto) (1.18-3.74) K/mm3 [place] # (Auto) (0.24-0.36) K/mm3 Eos # (Auto) (0.04-0.36) K/mm3 Baso # (Auto) (0.01-0.08) K/mm3 Sodium (136-145) mEq/L Potassium (3.5-5.1) mEq/L Chloride (98-107) mEq/L Carbon Dioxide (21-32) mEq/L Anion Gap (5-15) BUN (7-18) mg/dL Creatinine (0.55-1.02) mg/dL Est Cr Clr Drug Dosing mL/min Estimated GFR (MDRD) (>60) mL/min BUN/Creatinine Ratio (14-18) Glucose (74-106) mg/dL Calcium (8.5-10.1) mg/dL Magnesium (1.8-2.4) mg/dl Total Bilirubin (0.2-1.0) mg/dL AST (15-37) U/L ALT (14-59) U/L Alkaline Phosphatase (46-116) U/L Troponin I (0.00-0.056) ng/mL Total Protein (6.4-8.2) g/dl Albumin (3.4-5.0) g/dl Globulin gm/dL Albumin/Globulin Ratio (1-2) TSH 3rd Generation 1.607 (0.358-3.74) uIU/mL HCG, Qual (NEGATIVE) - Re-Assessments/Exams Free Text/Narrative Re-Assessment/Exam: 07/01/20 09:38 Work-up is negative. EKG unremarkable laboratory is not diagnostic, I did order a Holter monitor. Departure - Departure Time of Disposition: 09:39 Disposition: Home, Self-Care 01 Clinical Impression: Palpitations Referrals: Aliyah Harris MD [Primary Care Provider] - Forms: ED Department Discharge Additional Instructions: Return to the emergency room with any questions problems or worsening symptoms. Follow-up with your physician several days after you return the Holter monitor to get the results. Also discuss further evaluation. Consider taking magnesium oxide 400 mg a day and supplemental calcium. Sometimes this is beneficial. Sepsis Event Note (ED) - Evaluation Sepsis Screening Result: No Definite Risk - Focused Exam Vital Signs: Vital Signs Temp Pulse Resp BP Pulse Ox 07/01/20 07:10 35.9 C L 62 16 119/73 100 - My Orders Last 24 Hours: My Active Orders 07/01/20 07:32 EKG Documentation Completion [RC] STAT 07/01/20 09:34 Holter Monitor 48 Hours [RC] .PRN - Assessment/Plan Last 24 Hours: My Active Orders 07/01/20 07:32 EKG Documentation Completion [RC] STAT 07/01/20 09:34 Holter Monitor 48 Hours [RC] .PRN
== END 2020-07-01 09:59 | disposition home or self-care (01) ==
LOC: JD.ED 06:58
DX: R00.2 Palpitations (principal)
CPT/HCPCS: 36415; 80053; 83735; 84443; 84484; 84703; 85025; 93005; 93010; 93225; 93226; 99283; 99285-25